=== PATIENT | female | born 1945 | race Caucasian/White ===

== ENCOUNTER 2020-10-10 20:53 | Inpatient (IN) | payer MEDICARE, BC ==
[2020-10-10] MEDS ORDERED: Zofran 4 MG/2 ML VIAL IV ONE (21:50)
[2020-10-10] MEDS ORDERED: MORPHINE SULFATE 2 MG INJ IV ONE (21:50)
[2020-10-10 21:58] LABS: Absolute Neutrophil Ct (ANC) 16.89 (1.4-6.9); BASOPHIL % 0.2 % (0.0-0.4); Basophil (Absolute #) 0.03 (0-0.4); Eosinophil % 0.1 % (0.00-5.0); Eosinophil (Absolute #) 0.02 (0-0.5); Hematocrit 41.3 % (35-47); Hemoglobin 13.8 gm/dl (12.0-16.0); Lymphocytes % 6.3 % (24.0-44.0); Mean Cell Volume 93.9 fl (78-100); Mean Corpuscular Hemoglobin 31.4 pg (26-32); Mean Corpuscular Hgb Concent. 33.4 g/dl (32-36); Mean Platelet Volume 10.5 fl (7.5-11.0); Monocyte (Absolute #) 0.98 (0.0-1.3); Monocytes % 5.1 % (0.0-12.0); Neutrophil % 88.3 % (36.0-66.0); Platelet Count 359 K/mm3 (150-450); Red Cell Distribution Width 12.3 % (11.5-14.0); White Blood Count 19.1 K/mm3 (4.0-10.5)
[2020-10-10] MEDS ORDERED: Sodium Chloride 0.9% 1000 ML 1,000 ML IV SCH (22:00)
--- NOTE | 2020-10-10 22:07 | ERPHSYRPT ---
- History of Present Illness Time Seen by Provider: 10/10/20 21:10 Historian: patient Exam Limitations: no limitations Patient Subjective Stated Complaint: pt states she has had sever abd starting today. states pain started in upper abd and is now in rt lower abd. rates as 10/10 and describes as burning Triage Nursing Assessment: pt alert and oriented answers questions approp. pt ambulatory with steady gait noted. skin warm and dry. respirations nonlabored with lungs cta. abd soft, bowel sounds noted x4 quads. Physician History: Patient is a 74-year-old female presents to our emergency department with complaints of abdominal pain that started this afternoon. Pain initially presented at the right upper quadrant patient states the pain is now in the right lower quadrant. Pain described as an ache that is localized. No radiation. Pain rated 10 out of 10. No associated trauma. No fever. No nausea vomiting or diarrhea. No diaphoresis. Symptoms are moderate in intensity. No specific worsening improving factors. Denies vaginal discharge. No vaginal bleeding. No pelvic cramping. Patient voices no other complaints or concerns at this time. Timing/Duration: today Activities at Onset: none Quality: aching Abdominal Pain Onset Location: RLQ Pain Radiation: no radiation Severity of Pain-Max: moderate Severity of Pain-Current: mild Modifying Factors: Improves With: palpation Associated Symptoms: denies symptoms Previous symptoms: no prior history Allergies/Adverse Reactions: No Known Drug Allergies Allergy (Verified 10/10/20 21:20) Home Medications: No Reportable Medications [No Reported Medications] 10/10/20 [History] Hx Tetanus, Diphtheria Vaccination/Date Given: No Hx Influenza Vaccination/Date Given: Yes Hx Pneumococcal Vaccination/Date Given: No Immunizations Up to Date: No Travel Risk - International Travel Have you traveled outside of the country in past 3 weeks: No - Coronavirus Screening Are you exhibiting any of the following symptoms?: No Close contact with a COVID-19 positive Pt in past 14-21 Days: Yes - Vaccine Status Have you recieved a Covid-19 vaccination: Yes Glass Technologist: Moderna - Vaccination Dates Date of 2cond Vaccination (if applicable): apr 2020 - Review of Systems Constitutional: No Symptoms, No Fever, No Chills Eyes: No Symptoms Ears, Nose, & Throat: No Symptoms Respiratory: No Symptoms, No Cough, No Dyspnea Cardiac: No Symptoms, No Chest Pain, No Edema, No Syncope Abdominal/Gastrointestinal: No Symptoms, No Abdominal Pain, No Nausea, No Vomiti ng, No Diarrhea Genitourinary Symptoms: No Symptoms, No Dysuria Musculoskeletal: No Symptoms, No Back Pain, No Neck Pain Skin: No Symptoms, No Rash Neurological: No Symptoms, No Dizziness, No Focal Weakness, No Sensory Changes Psychological: No Symptoms Endocrine: No Symptoms Hematologic/Lymphatic: No Symptoms Immunological/Allergic: No Symptoms All Other Systems: Reviewed and Negative - Past Medical History Pertinent Past Medical History: Yes Other Medical History: prolapsed bladder - Past Surgical History Past Surgical History: Yes Female Surgical History: Hysterectomy Other Surgical History: removal of cyst from ovary - Social History Smoking Status: Never smoker Exposure to second hand smoke: No Drug Use: none Patient Lives Alone: Yes - Nursing Vital Signs Nursing Vital Signs: Initial Vital Signs Temperature 97.5 F 10/10/20 21:03 Pulse Rate 108 H 10/10/20 21:03 Respiratory Rate 16 10/10/20 21:03 Blood Pressure 179/80 10/10/20 21:03 O2 Sat by Pulse Oximetry 97 10/10/20 21:03 Pain Scale Pain Intensity 10 - Physical Exam General Appearance: no apparent distress, alert Eye Exam: PERRL/EOMI, eyes nml inspection Ears, Nose, Throat Exam: normal ENT inspection, pharynx normal, moist mucous membranes Neck Exam: normal inspection, non-tender, supple, full range of motion Respiratory Exam: normal breath sounds, lungs clear, No respiratory distress Cardiovascular Exam: regular rate/rhythm, normal heart sounds Gastrointestinal/Abdomen Exam: soft, tenderness, other (Patient palpation of right lower quadrant McBurney's point. No rebound no peritoneal signs. Negativ e Jacobsen sign. No signs of trauma.), No mass Back Exam: normal inspection, normal range of motion, No CVA tenderness, No vertebral tenderness Extremity Exam: normal inspection, normal range of motion, pelvis stable Neurologic Exam: alert, oriented x 3, cooperative, normal mood/affect, nml cerebellar function, sensation nml, No motor deficits Skin Exam: normal color, warm, dry Lymphatic Exam: No adenopathy SpO2 Interpretation: normal SpO2: 97 O2 Delivery: Room Air - Course Nursing assessment & vital signs reviewed: Yes - CT Exams Abdomen/Pelvis CT Interpretation: Tele-radiologist Report (2 cm right ovarian cyst. Dilated 11 mm diameter appendix with free fluid adjacent to the truncated tip of the appendix suggesting possible perforation of the appendiceal tip with loculated fluid between the appendiceal tip and adjacent loop of small bowel.) Ordered Tests: Active Orders 24 hr Category Date Time Status IV Insertion STAT Care 10/10/20 21:50 Active NPO Diet 10/10/20 23:46 Active ABDOMEN AND PELVIS W CONTRAST [CT] Stat Exams 10/10/20 21:51 Taken CBC W DIFF Stat Lab 10/10/20 21:54 Completed CMP Stat Lab 10/10/20 21:54 Completed LIPASE Stat Lab 10/10/20 21:54 Completed TROPONIN Q3H Lab 10/10/20 21:54 Completed TROPONIN Q3H Lab 10/11/20 01:00 Ordered TROPONIN Q3H Lab 10/11/20 04:00 Ordered TROPONIN Q3H Lab 10/11/20 07:00 Ordered TROPONIN Q3H Lab 10/11/20 10:00 Ordered UA W/RFX UR CULTURE Stat Lab 10/10/20 22:33 Completed Transfer Order Routine Transfer 10/11/20 Ordered Medication Summary Generic Name Dose Route Start Last Admin Trade Name Freq PRN Reason Stop Dose Admin Sodium Chloride 1,000 mls @ 100 mls/hr 10/10/20 22:00 10/10/20 22:15 Sodium Chloride 0.9% 1000 Ml IV 11/09/20 21:59 100 mls/hr .Q10H CRISTOFER Administration Discontinued Medications Generic Name Dose Route Start Last Admin Trade Name Freq PRN Reason Stop Dose Admin Levofloxacin/Dextrose 500 mg in 100 mls @ 100 mls/hr 10/10/20 23:33 10/10/20 23:39 Levofloxacin 500mg/100ml D5w IV 10/11/20 00:32 100 ml/hr STAT STA 100 mls/hr Administration Metronidazole 500 mg in 100 mls @ 200 mls/hr 10/10/20 23:33 10/10/20 23:39 Flagyl 500 Mg Ivpb IV 10/11/20 00:02 200 ml/hr STAT STA 200 mls/hr Administration Metronidazole Confirm 10/10/20 23:36 Flagyl 500 Mg Ivpb Administered 10/10/20 23:37 Dose 500 mg in 100 mls @ ud IV .STK-MED ONE Levofloxacin/Dextrose Confirm 10/10/20 23:36 Levofloxacin 500mg/100ml D5w Administered 10/10/20 23:37 Dose 500 mg in 100 mls @ ud IV .STK-MED ONE Morphine Sulfate 2 mg 10/10/20 21:50 10/10/20 22:15 Morphine Sulfate 2 Mg Inj IV 10/10/20 21:51 2 mg STAT ONE Administration Morphine Sulfate Confirm 10/10/20 22:09 Morphine Sulfate 2 Mg Inj Administered 10/10/20 22:10 Dose 2 mg .ROUTE .STK-MED ONE Morphine Sulfate 4 mg 10/10/20 23:44 10/10/20 23:51 Morphine Sulfate 4 Mg Inj IV 10/10/20 23:45 4 mg STAT ONE Administration Morphine Sulfate Confirm 10/10/20 23:44 Morphine Sulfate 2 Mg Inj Administered 10/10/20 23:45 Dose 2 mg .ROUTE .STK-MED ONE Morphine Sulfate Confirm 10/10/20 23:49 Morphine Sulfate 2 Mg Inj Administered 10/10/20 23:50 Dose 2 mg .ROUTE .STK-MED ONE Ondansetron HCl 4 mg 10/10/20 21:50 10/10/20 22:14 Zofran 4 Mg/2 Ml Vial IV 10/10/20 21:51 4 mg STAT ONE Administration Ondansetron HCl Confirm 10/10/20 22:09 Zofran 4 Mg/2 Ml Vial Administered 10/10/20 22:10 Dose 4 mg .ROUTE .STK-MED ONE Ondansetron HCl Confirm 10/10/20 23:44 Zofran 4 Mg/2 Ml Vial Administered 10/10/20 23:45 Dose 4 mg .ROUTE .STK-MED ONE Lab/Rad Data: Laboratory Result Diagrams 10/10/20 21:54 10/10/20 21:54 Laboratory Results 10/10/20 10/10/20 10/10/20 Range/Units Unknown 22:33 21:54 WBC (4.0-10.5) K/mm3 RBC (4.1-5.4) M/mm3 Hgb (12.0-16.0) gm/dl Hct (35-47) % MCV (78-100) fl MCH (26-32) pg MCHC (32-36) g/dl RDW (11.5-14.0) % Plt Count (150-450) K/mm3 MPV (7.5-11.0) fl Gran % (36.0-66.0) % Eos # (Auto) (0-0.5) Absolute Lymphs (auto) (1.0-4.6) Absolute Monos (auto) (0.0-1.3) Lymphocytes % (24.0-44.0) % Monocytes % (0.0-12.0) % Eosinophils % (0.00-5.0) % Basophils % (0.0-0.4) % Absolute Granulocytes (1.4-6.9) Basophils # (0-0.4) Sodium (137-145) mmol/L Potassium (3.5-5.1) mmol/L Chloride (98-107) mmol/L Carbon Dioxide (22-30) mmol/L Anion Gap (5-15) MEQ/L BUN (7-17) mg/dL Creatinine (0.52-1.04) mg/dL Estimated GFR ML/MIN Glucose (74-106) mg/dL Calcium (8.4-10.2) mg/dL Total Bilirubin (0.2-1.3) mg/dL AST (14-36) U/L ALT (0-35) U/L Alkaline Phosphatase (38-126) U/L Troponin I < 0.012 (0.000-0.034) ng/mL Serum Total Protein (6.3-8.2) g/dL Albumin (3.5-5.0) g/dL Lipase (23-300) U/L Urine Color YELLOW (YELLOW) Urine Appearance CLEAR (CLEAR) Urine pH 7.0 (5-6) Ur Specific [place] 1.012 (1.005-1.025) Urine Protein NEGATIVE (Negative) Urine Ketones SMALL (NEGATIVE) Urine Blood NEGATIVE (0-5) Gregorio/ul Urine Nitrite NEGATIVE (NEGATIVE) Urine Bilirubin NEGATIVE (NEGATIVE) Urine Urobilinogen NEGATIVE (0-1) mg/dL Ur Leukocyte Esterase NEGATIVE (NEGATIVE) Urine WBC (Auto) 0-2 (0-5) /HPF Urine RBC (Auto) 0-2 (0-2) /HPF U Hyaline Cast (Auto) 0-2 (0-2) /LPF U Epithel Cells (Auto) RARE (FEW) /HPF Urine Bacteria (Auto) NONE SEEN (NEGATIVE) /HPF Urine Mucus (Auto) SLIGHT (NEGATIVE) /HPF Urine Culture Reflexed NO (NO) Urine Glucose NEGATIVE (NEGATIVE) mg/dL SARS-CoV-2 (PCR) NEGATIVE (NEGATIVE) 10/10/20 10/10/20 Range/Units 21:54 21:54 WBC 19.1 H (4.0-10.5) K/mm3 RBC 4.40 (4.1-5.4) M/mm3 Hgb 13.8 (12.0-16.0) gm/dl Hct 41.3 (35-47) % MCV 93.9 (78-100) fl MCH 31.4 (26-32) pg MCHC 33.4 (32-36) g/dl RDW 12.3 (11.5-14.0) % Plt Count 359 (150-450) K/mm3 MPV 10.5 (7.5-11.0) fl Gran % 88.3 H (36.0-66.0) % Eos # (Auto) 0.02 (0-0.5) Absolute Lymphs (auto) 1.20 (1.0-4.6) Absolute Monos (auto) 0.98 (0.0-1.3) Lymphocytes % 6.3 L (24.0-44.0) % Monocytes % 5.1 (0.0-12.0) % Eosinophils % 0.1 (0.00-5.0) % Basophils % 0.2 (0.0-0.4) % Absolute Granulocytes 16.89 H (1.4-6.9) Basophils # 0.03 (0-0.4) Sodium 131 L (137-145) mmol/L Potassium 3.5 (3.5-5.1) mmol/L Chloride 98 (98-107) mmol/L Carbon Dioxide 22 (22-30) mmol/L Anion Gap 14.4 (5-15) MEQ/L BUN 11 (7-17) mg/dL Creatinine 0.56 (0.52-1.04) mg/dL Estimated GFR > 60.0 ML/MIN Glucose 136 H (74-106) mg/dL Calcium 9.3 (8.4-10.2) mg/dL Total Bilirubin 0.60 (0.2-1.3) mg/dL AST 31 (14-36) U/L ALT 18 (0-35) U/L Alkaline Phosphatase 68 (38-126) U/L Troponin I (0.000-0.034) ng/mL Serum Total Protein 6.9 (6.3-8.2) g/dL Albumin 4.1 (3.5-5.0) g/dL Lipase 92 (23-300) U/L Urine Color (YELLOW) Urine Appearance (CLEAR) Urine pH (5-6) Ur Specific [place] (1.005-1.025) Urine Protein (Negative) Urine Ketones (NEGATIVE) Urine Blood (0-5) Gregorio/ul Urine Nitrite (NEGATIVE) Urine Bilirubin (NEGATIVE) Urine Urobilinogen (0-1) mg/dL Ur Leukocyte Esterase (NEGATIVE) Urine WBC (Auto) (0-5) /HPF Urine RBC (Auto) (0-2) /HPF U Hyaline Cast (Auto) (0-2) /LPF U Epithel Cells (Auto) (FEW) /HPF Urine Bacteria (Auto) (NEGATIVE) /HPF Urine Mucus (Auto) (NEGATIVE) /HPF Urine Culture Reflexed (NO) Urine Glucose (NEGATIVE) mg/dL SARS-CoV-2 (PCR) (NEGATIVE) - Progress Progress: improved Progress Note: Case discussed with Dr. Albarado at 11:[address] Albarado advised that there appears to be a perforated appendix. He is currently speaking to the data warehouse manager regarding OR availability. Patient was informed. IV antibiotics ordered. Additional pain medication ordered as well. 10/10/20 23:43 10/10/20 23:45 On accounts supervisor called our ED informed us that surgery will be scheduled for 6 AM tomorrow morning. Patient will be maintained n.p.o. 10/11/20 00:48 Discussed with accepts admission to observation. Plan of care d iscussed with patient. She agrees to admission [facility] for further evaluation and treatment. Discussed with : Derick (Dr. Ching will take patient to the OR at 6 AM this morning.) Will see patient in: hospital (observation) Counseled pt/family regarding: lab results, diagnosis, rad results - Departure Departure Disposition: Observation Clinical Impression: Leukocytosis, Hepatic cyst, Renal cyst, Perforated appendix, Ovarian cyst, Spondylolisthesis, Central spinal stenosis, Levoscoliosis Condition: Stable Critical Care Time: No Referrals: LAUREN OLGUIN MD [Primary Care Provider] -
[2020-10-10] MEDS ORDERED: MORPHINE SULFATE 2 MG INJ ONE ×3 (22:09→23:49)
[2020-10-10] MEDS ORDERED: Zofran 4 MG/2 ML VIAL ONE ×2 (22:09→23:44)
[2020-10-10] MEDS ORDERED: Sodium Chloride 0.9% 1000 ML 1,000 ML ONE (22:09)
[2020-10-10 22:10] LABS: ALBUMIN 4.1 g/dL (3.5-5.0); ALKALINE PHOSPHATASE 68 U/L (38-126); ANION GAP 14.4 MEQ/L (5-15); BLOOD UREA NITROGEN 11 mg/dL (7-17); CHLORIDE 98 mmol/L (98-107); Calcium 9.3 mg/dL (8.4-10.2); Carbon Dioxide 22 mmol/L (22-30); Creatinine 1 0.56 mg/dL (0.52-1.04); EST GLOMERULAR FILTRATION RATE > 60.0 ML/MIN; Glucose 136 mg/dL (74-106); LIPASE 92 U/L (23-300); Potassium 3.5 mmol/L (3.5-5.1); SGOT/AST 31 U/L (14-36); SGPT/ALT 18 U/L (0-35); SODIUM 131 mmol/L (137-145); Total Protein 6.9 g/dL (6.3-8.2)
[2020-10-10 23:07] LABS: Appearance CLEAR (CLEAR); Bilirubin NEGATIVE (NEGATIVE); Blood NEGATIVE Ery/ul (0-5); Epithelial Cells RARE /HPF (FEW); Glucose NEGATIVE (NEGATIVE); Hyaline Casts 0-2 /LPF (0-2); Ketones SMALL (NEGATIVE); Leukocyte Esterase NEGATIVE (NEGATIVE); Mucus SLIGHT /HPF (NEGATIVE); Nitrite NEGATIVE (NEGATIVE); Protein,Urine Dip NEGATIVE (Negative); RBC 0-2 /HPF (0-2); Specific Gravity 1.012 (1.005-1.025); Urobilinogen NEGATIVE mg/dL (0-1); WBC 0-2 /HPF (0-5)
[2020-10-10 23:08] LABS: Bacteria NONE SEEN /HPF (NEGATIVE)
[2020-10-10] MEDS ORDERED: FLAGYL 500 MG IVPB 500 MG/100 ML BAG IV STA (23:33)
[2020-10-10] MEDS ORDERED: Levofloxacin 500MG/100ML D5W 500 MG/100 ML BAG IV STA (23:33)
[2020-10-10] MEDS ORDERED: Levofloxacin 500MG/100ML D5W 500 MG/100 ML BAG IV ONE (23:36)
[2020-10-10] MEDS ORDERED: FLAGYL 500 MG IVPB 500 MG/100 ML BAG IV ONE (23:36)
[2020-10-10] MEDS ORDERED: MORPHINE SULFATE 4 MG INJ IV ONE (23:44)
[2020-10-11] MEDS ORDERED: Sodium Chloride 0.9% 1000 ML 1,000 ML IV SCH (01:28)
[2020-10-11] MEDS ORDERED: MORPHINE SULFATE 4 MG INJ IV PRN ×3 (01:28→09:26)
[2020-10-11] MEDS ORDERED: Lactated Ringers 1,000 ML IV ONE ×2 (01:55→07:28)
[2020-10-11] MEDS ORDERED: MEFOXIN 2 GM PREMIX** 2 GM/50 ML ML IV ONE (01:55)
[2020-10-11 04:53] LABS: Absolute Neutrophil Ct (ANC) 22.57 (1.4-6.9); Basophil (Absolute #) 0.01 (0-0.4); Eosinophil (Absolute #) 0 (0-0.5); Hematocrit 37.3 % (35-47); Hemoglobin 12.2 gm/dl (12.0-16.0); Lymphocytes % 2.1 % (24.0-44.0); Mean Cell Volume 95.6 fl (78-100); Mean Corpuscular Hemoglobin 31.3 pg (26-32); Mean Corpuscular Hgb Concent. 32.7 g/dl (32-36); Mean Platelet Volume 10.1 fl (7.5-11.0); Monocyte (Absolute #) 0.85 (0.0-1.3); Monocytes % 3.6 % (0.0-12.0); Neutrophil % 94.3 % (36.0-66.0); Platelet Count 280 K/mm3 (150-450); Red Cell Distribution Width 12.3 % (11.5-14.0); White Blood Count 23.9 K/mm3 (4.0-10.5)
[2020-10-11] MEDS ORDERED: Lactated Ringers 1,000 ML IV SCH (05:00)
[2020-10-11] MEDS ORDERED: MEFOXIN 2 GM PREMIX** 2 GM/50 ML ML IV SCH (05:00)
[2020-10-11 05:05] LABS: ALBUMIN 3.2 g/dL (3.5-5.0); ALKALINE PHOSPHATASE 53 U/L (38-126); ANION GAP 13.1 MEQ/L (5-15); BLOOD UREA NITROGEN 11 mg/dL (7-17); CHLORIDE 102 mmol/L (98-107); Calcium 8.7 mg/dL (8.4-10.2); Carbon Dioxide 23 mmol/L (22-30); Creatinine 1 0.59 mg/dL (0.52-1.04); EST GLOMERULAR FILTRATION RATE > 60.0 ML/MIN; Glucose 124 mg/dL (74-106); Potassium 3.9 mmol/L (3.5-5.1); SGOT/AST 22 U/L (14-36); SGPT/ALT 15 U/L (0-35); SODIUM 134 mmol/L (137-145); Total Protein 5.4 g/dL (6.3-8.2)
[2020-10-11] MEDS ORDERED: Sensorcaine 0.25% 10 ML ONE (05:23)
[2020-10-11 06:04] LABS: INR 1.09 (0.8-3.0); PROTIME 12.9 SECONDS (9.4-12.5)
[2020-10-11] MEDS ORDERED: Zemuron 100 MG/10 ML ONE (06:05)
[2020-10-11] MEDS ORDERED: DIPRIVAN 200 MG/20 ML IV ONE (06:05)
[2020-10-11] MEDS ORDERED: BRIDION 200MG/2ML IV ONE (06:05)
[2020-10-11] MEDS ORDERED: Quelicin Fliptop 200 MG/10 ML ONE (06:05)
[2020-10-11] MEDS ORDERED: ATROPINE SULFATE 1MG ONE (06:05)
[2020-10-11 06:07] LABS: PTT 24.6 SECONDS (25.1-36.5)
[2020-10-11] MEDS ORDERED: SUBLIMAZE 100 MCG/2 ML ONE (06:07)
[2020-10-11] MEDS ORDERED: Versed 2 MG/2 ML Injection ONE (06:07)
[2020-10-11] MEDS ORDERED: Ephedrine Sulfate 50 MG/ML ONE (06:45)
[2020-10-11 07:10] LABS: ABO TYPING O; Antibody Screen NEGATIVE (NEGATIVE); RH TYPING POSITIVE
[2020-10-11] MEDS ORDERED: TORAdol 30 mg Injection ONE (07:27)
[2020-10-11] MEDS ORDERED: Zofran 4 MG/2 ML VIAL ONE (07:28)
[2020-10-11 08:18] LABS: Slide Review 1 YES
--- NOTE | 2020-10-11 08:46 | CONS ---
CONSULT DATE: 10/11/2020 HISTORY: A 74 year-old female had some lower abdominal pain looked like more to the right lower quadrant that started yesterday. It became worse yesterday and she came in. She had CT work up in the middle of the night and noted to have appendicitis, question whether she had an abscess with a little bit of collection base of the appendix, dilated appendix. I was asked to see her surgically. PAST MEDICAL HISTORY: She had prolapsed bladder in the past. Considered healthy otherwise. PAST SURGICAL HISTORY: She had hysterectomy in the past apparently they did vaginally. MEDICATIONS: No medications on a regular basis. ALLERGIES: NKDA. FAMILY HISTORY: Negative in regards to this problem. SOCIAL HISTORY: Denies alcohol abuse. REVIEW OF SYSTEMS: Fourteen systems reviewed. No chest pain or palpitations. Pertinent for right lower quadrant pain. Other systems negative or noncontributory as above and per preadmission questionnaire. LAB DATA AND TESTS: White count 19 in the emergency room. Hemoglobin 13. Liver function tests were unremarkable. CT scan showed appendix with some fluid adjacent to it, question perforated appendix. PHYSICAL EXAMINATION: Temperature 97.5F, blood pressure 179/80 in the emergency room when she was there. GENERAL: No acute distress. HEENT: Sclera nonicteric. NECK: No JVD. CHEST: Equal excursion, nonlabored breathing. CVS: Regular rate and rhythm. ABDOMEN: Soft, some tenderness in the right lower quadrant. EXTREMITIES: No cyanosis. NEURO: Alert, moving extremities grossly symmetrically. PSYCH: Appropriate mood and affect. IMPRESSION: Acute lower abdominal pain. CT suspicious for acute appendicitis possible perforation. I feel the patient would benefit from diagnostic laparoscopy, laparoscopic appendectomy with possible open. Risks and benefits explained in detail including but not limited to bleeding or infection, risk of trocar injury or hernia, risk of bowel, bladder or blood vessel or ureter issues or injury possibly requiring other procedure, risk of subsequent intra-abdominal abscess or fistula formation possibly requiring percutaneous or open drainage even at a later date, perioperative risk of nausea, vomiting, ileus or obstruction, risk of ongoing infection possibly requiring other procedures, possibility of finding a normal appendix likely remove incidentally and look for other etiology that might need taken care of surgically, general risk of anesthesia, deep vein thrombosis, pulmonary embolism, pneumonia but not limited to, consent obtained. Will proceed with diagnostic laparoscopy, laparoscopic appendectomy possible open when OR time available.
--- NOTE | 2020-10-11 08:53 | XRAY ---
Indication: Abdomen pain. Multiple contiguous axial images obtained through the abdomen and pelvis using 80 cc Isovue 370 contrast. Comparison: None Lung bases demonstrates mild dependent atelectasis without infiltrate or effusion. Heart not enlarged. Moderate size hiatal hernia with partial intrathoracic stomach. Noncontrasted stomach and bowel loops appear nonobstructed. Appendix is prominent up to 1.2 cm with minimal periappendiceal stranding favoring appendicitis. Tiny free fluid presumed reactive. No walled off fluid collection or free air. Incidental minimal sigmoid diverticulosis, 1.3 cm right lobe hepatic cyst, 2.1 cm right ovary cyst, and small bilateral renal cysts largest on the left measuring 1.3 cm. Uterus surgically absent. Remaining liver, gallbladder, pancreas, spleen, adrenal glands, kidneys, ureters, and bladder are unremarkable. Minimal aortic calcifications. No AAA or pathologic retroperitoneal lymphadenopathy. Osseous structures intact with mild osteopenia, minimal/mild multilevel degenerative spondylosis, 4 mm anterolisthesis of L4 on L5, and mild levorotoscoliosis centered at L3. Impression: 1. Abnormal appendix concerning for acute appendicitis with tiny reactive fluid. 2. Incidental hiatal hernia with partial intrathoracic stomach, sigmoid diverticulosis, hepatic/renal/right ovary cysts, and chronic bony findings. Comment: Preliminary interpretation made by [facility]. No critical discrepancy.
--- NOTE | 2020-10-11 08:59 | OP ---
SURGERY DATE/TIME: 10/11/2020 0633 PREOPERATIVE DIAGNOSIS: Acute appendicitis question of perforation. POSTOPERATIVE DIAGNOSIS: Acute appendicitis with question of microperforation, diffuse right abdomen peritonitis. PROCEDURE: Laparoscopic appendectomy. SURGEON: Dr. Neto Albarado. ANESTHESIA: General. ESTIMATED BLOOD LOSS: Minimal. INDICATIONS: As noted above. Risks and benefits explained in detail but not limited to, consent obtained. DESCRIPTION OF PROCEDURE AND FINDINGS: The patient was taken to the operating room. General anesthesia induced. Abdomen prepped and draped in usual sterile fashion. After official time out and no disagreement with planned procedure, a transverse incision made at supraumbilical area. Fascia grasped and pulled upwards. Veress needle inserted and tested with saline. Pneumoperitoneum accomplished insufflating from opening pressure of 0 to 15. A 5 mm bladeless port and camera inserted without difficulty followed by lower midline 5 mm port and a right mid abdomen 5 mm port. She had diffuse peritonitis on the right half of the abdomen, had acute appendicitis that did at least have a microperforation. It was carefully mobilized upwards. The appendix was stapled off at the base of the cecum with EndoGIA stapler and sequential reload fired across the mesoappendix and appeared to have adequate hemostasis. Appendix placed in a bag, pulled free and passed off out the port wound. The port was replaced. Copious amount of irrigation accomplished in the pelvis and right lower quadrant and right gutter irrigating as clear as possible. Given the extensive peritonitis and what seemed to be at least a microperforation/diffuse peritonitis it was felt would benefit from temporary ROBERT drain placement. It was placed in the right lower quadrant out through a 5 mm port site. Prior to doing so the small bowel was run to a couple of feet. There was no evidence of any Meckel's. A drain was placed and brought out through the inferior 5 mm midline port, secured with PDS suture and placed to bulb suction. The fascial defect site closed with puncture closure device with #1 Vicryl under direct vision with the camera. Pneumoperitoneum decompressed. The wound is irrigated out. Skin incision closed with 4-0 Vicryl. Steri-Strips and sterile dressing applied. 0.25% Marcaine local injected along the skin incision fascial defects. The patient tolerated the procedure well. There were no immediate complications. Findings were discussed with the family out in the waiting area.
[2020-10-11] MEDS: Calcium 500MG W/Vit D Tablet PO SCH (09:45)
[2020-10-11] MEDS: THERAGRAN MULTIVITAMIN PO SCH (09:45)
[2020-10-11] MEDS ORDERED: MEDICATION INTERVENTION MC SCH (09:45)
[2020-10-11] MEDS ORDERED: CALCIUM CARBONATE PO SCH (10:00)
[2020-10-11] MEDS ORDERED: [UNRECOGNIZED DRUG - OTHER] PO SCH (10:00)
[2020-10-11] MEDS ORDERED: VIT C PO SCH (10:00)
[2020-10-11] MEDS ORDERED: FOLIC ACID PO SCH (10:00)
[2020-10-11] MEDS ORDERED: MULTIVITAMIN PO SCH (10:00)
[2020-10-11] MEDS ORDERED: GLUT PO SCH (10:00)
[2020-10-11] MEDS ORDERED: IRON PO SCH (10:00)
[2020-10-11] MEDS ORDERED: MV MIN PO SCH (10:00)
[2020-10-11] MEDS ORDERED: LYSINE PO SCH (10:00)
[2020-10-11] MEDS ORDERED: VITAMIN D3 PO SCH (10:00)
[2020-10-11] MEDS: SODIUM CHLORIDE 0.9% IV SCH ×2 (11:28→17:03)
[2020-10-11] MEDS: ZOSYN IV SCH ×2 (11:28→17:03)
[2020-10-11] MEDS: NORCO 5/325 MG PO PRN ×3 (11:29→20:46)
[2020-10-11] MEDS: Zofran 4 MG/2 ML VIAL IV PRN (17:36)
[2020-10-11] MEDS ORDERED: Tums EX 750 MG PO PRN (18:44)
[2020-10-12] MEDS: ZOSYN IV SCH ×4 (00:05→20:53)
[2020-10-12] MEDS: SODIUM CHLORIDE 0.9% IV SCH ×4 (00:05→20:53)
[2020-10-12] MEDS: NORCO 5/325 MG PO PRN ×4 (00:53→09:07)
[2020-10-12] MEDS ORDERED: Tums EX 750 MG PO PRN (07:15)
[2020-10-12] MEDS: Calcium 500MG W/Vit D Tablet PO SCH (08:54)
[2020-10-12] MEDS: THERAGRAN MULTIVITAMIN PO SCH (08:55)
[2020-10-12] MEDS: Zofran 4 MG/2 ML VIAL IV PRN (09:01)
[2020-10-12 09:25] LABS: Absolute Neutrophil Ct (ANC) 11.85 (1.4-6.9); BASOPHIL % 0.1 % (0.0-0.4); Basophil (Absolute #) 0.02 (0-0.4); Eosinophil % 0.4 % (0.00-5.0); Eosinophil (Absolute #) 0.05 (0-0.5); Hematocrit 34.7 % (35-47); Hemoglobin 11.2 gm/dl (12.0-16.0); Lymphocyte (Absolute #) 1.03 (1.0-4.6); Lymphocytes % 7.6 % (24.0-44.0); Mean Cell Volume 97.5 fl (78-100); Mean Corpuscular Hemoglobin 31.5 pg (26-32); Mean Corpuscular Hgb Concent. 32.3 g/dl (32-36); Mean Platelet Volume 10.1 fl (7.5-11.0); Monocyte (Absolute #) 0.65 (0.0-1.3); Monocytes % 4.8 % (0.0-12.0); Neutrophil % 87.1 % (36.0-66.0); Platelet Count 262 K/mm3 (150-450); Red Blood Count 3.56 M/mm3 (4.1-5.4); Red Cell Distribution Width 12.8 % (11.5-14.0); White Blood Count 13.6 K/mm3 (4.0-10.5)
[2020-10-12 09:46] LABS: ALBUMIN 3.2 g/dL (3.5-5.0); ALKALINE PHOSPHATASE 51 U/L (38-126); BLOOD UREA NITROGEN 12 mg/dL (7-17); CHLORIDE 100 mmol/L (98-107); Calcium 8.3 mg/dL (8.4-10.2); Carbon Dioxide 23 mmol/L (22-30); Creatinine 1 0.64 mg/dL (0.52-1.04); EST GLOMERULAR FILTRATION RATE > 60.0 ML/MIN; Glucose 117 mg/dL (74-106); Potassium 3.6 mmol/L (3.5-5.1); SGOT/AST 40 U/L (14-36); SGPT/ALT 19 U/L (0-35); SODIUM 131 mmol/L (137-145); Total Protein 5.8 g/dL (6.3-8.2)
[2020-10-12] MEDS ORDERED: ZOFRAN ODT 4 MG PO PRN (14:22)
[2020-10-12] MEDS: TYLENOL 325 MG PO PRN ×2 (15:34→22:15)
--- NOTE | 2020-10-12 16:07 | PCM.HP ---
History of Present Illness - Chief Complaint Chief Complaint: abdominal pain for 1 day History of Present Illness: is a 74 year old female.presents to our emergency department with complaints of abdominal pain that started this afternoon. Pain initially presented at the right upper quadrant patient states the pain is now in the right lower quadrant. Pain described as an ache that is localized. No radiation. Pain rated 10 out of 10. No associated trauma. No fever. No nausea vomiting or diarrhea. No diaphoresis. Symptoms are moderate in intensity. No specific worsening improving factors. Denies vaginal discharge. No vaginal bleeding. No pelvic cramping. Patient voices no other complaints or concerns at this time. - Review of Systems Constitutional: No Fever, No Chills Eyes: No Symptoms Ears, Nose, & Throat: No Symptoms Respiratory: No Cough, No Short Of Breath Cardiac: No Chest Pain, No Edema, No Syncope Abdominal/Gastrointestinal: No Abdominal Pain, No Nausea, No Vomiting, No Diarrhea Genitourinary Symptoms: No Dysuria Musculoskeletal: No Back Pain, No Neck Pain Skin: No Rash Neurological: No Dizziness, No Focal Weakness, No Sensory Changes Psychological: No Symptoms Endocrine: No Symptoms Hematologic/Lymphatic: No Symptoms Immunological/Allergic: No Symptoms Medications & Allergies Home Medications: Home Medication List Calcium Carbonate/Vitamin D3 [Calcium 250-D Tablet] 1 tab PO DAILY 10/11/20 [History Confirmed 10/11/20] Multivitamin/Iron/Folic Acid [Centrum Adults Tablet] 1 tab PO DAILY 10/11/20 [History Confirmed 10/11/20] Mv-Min/Vit C/Glut/Lysine/Hb124 [Immune Support Chewable Tablet] 1 tab PO DAILY 10/11/20 [History Confirmed 10/11/20] Allergies/Adverse Reactions: Allergies Allergy/AdvReac Type Severity Reaction Status Date / Time No Known Drug Allergies Allergy Verified 10/11/20 01:35 - Past Medical History Past Medical History: Yes Neurological History: No Pertinent History ENT History: No Pertinent History Cardiac History: No Pertinent History Respiratory History: No Pertinent History Endocrine Medical History: No Pertinent History Musculoskelatal History: No Pertinent History GI Medical History: GERD Pyscho-Social History: No Pertinent History Reproductive Disorders: No Pertinent History Comment: prolapsed bladder - Female History Are you now?: No - Past Surgical History Past Surgical History: Yes Neuro Surgical History: No Pertinent History Cardiac History: No Pertinent History Respiratory Surgery: No Pertinent History GI Surgical History: No Pertinent History Genitourinary Surgical Hx: No Pertinent History Musculskeletal Surgical Hx: No Pertinent History Female Surgical History: Hysterectomy Other Surgical History: removal of cyst from ovary - Social History Smoking Status: Never smoker Exposure to second hand smoke: No Alcohol: None Drug Use: none - Physical Exam Vital Signs: Vital Signs - 24 hr Temp Pulse Resp BP Pulse Ox 10/12/20 11:45 97.6 F 75 16 93/49 91 L 10/12/20 07:22 97.4 F 75 16 100/52 90 L 10/12/20 04:00 97.2 F 67 16 96/54 94 L 10/11/20 23:57 97.7 F 71 17 100/55 94 L 10/11/20 23:00 97.7 F 71 17 100/55 94 L 10/11/20 19:53 97.4 F 73 16 100/54 94 L 10/11/20 16:09 97.9 F 77 16 103/53 93 L General Appearance: no apparent distress, alert Neurologic Exam: alert, oriented x 3, cooperative, normal mood/affect, nml cerebellar function, nml station & gait, sensation nml, No motor deficits Eye Exam: PERRL/EOMI, eyes nml inspection Ears, Nose, Throat Exam: normal ENT inspection, TMs normal, pharynx normal, moist mucous membranes Neck Exam: normal inspection, non-tender, supple, full range of motion Respiratory Exam: normal breath sounds, lungs clear, No respiratory distress Cardiovascular Exam: regular rate/rhythm, normal heart sounds, normal peripheral pulses Gastrointestinal/Abdomen Exam: tenderness (LLQ), No mass Back Exam: normal inspection, normal range of motion, No CVA tenderness, No vertebral tenderness Extremity Exam: normal inspection, normal range of motion, pelvis stable Skin Exam: normal color, warm, dry, No rash Lymphatic Exam: No adenopathy Results - Labs Lab/Micro Results: Lab Results-Last 24 Hours 10/12/20 10/12/20 Range/Units 09:13 09:13 WBC 13.6 H (4.0-10.5) K/mm3 RBC 3.56 L (4.1-5.4) M/mm3 Hgb 11.2 L (12.0-16.0) gm/dl Hct 34.7 L (35-47) % MCV 97.5 (78-100) fl MCH 31.5 (26-32) pg MCHC 32.3 (32-36) g/dl RDW 12.8 (11.5-14.0) % Plt Count 262 (150-450) K/mm3 MPV 10.1 (7.5-11.0) fl Gran % 87.1 H (36.0-66.0) % Eos # (Auto) 0.05 (0-0.5) Absolute Lymphs (auto) 1.03 (1.0-4.6) Absolute Monos (auto) 0.65 (0.0-1.3) Lymphocytes % 7.6 L (24.0-44.0) % Monocytes % 4.8 (0.0-12.0) % Eosinophils % 0.4 (0.00-5.0) % Basophils % 0.1 (0.0-0.4) % Absolute Granulocytes 11.85 H (1.4-6.9) Basophils # 0.02 (0-0.4) Sodium 131 L (137-145) mmol/L Potassium 3.6 (3.5-5.1) mmol/L Chloride 100 (98-107) mmol/L Carbon Dioxide 23 (22-30) mmol/L Anion Gap 12.0 (5-15) MEQ/L BUN 12 (7-17) mg/dL Creatinine 0.64 (0.52-1.04) mg/dL Estimated GFR > 60.0 ML/MIN Glucose 117 H (74-106) mg/dL Calcium 8.3 L (8.4-10.2) mg/dL Total Bilirubin 0.50 (0.2-1.3) mg/dL AST 40 H (14-36) U/L ALT 19 (0-35) U/L Alkaline Phosphatase 51 (38-126) U/L Serum Total Protein 5.8 L (6.3-8.2) g/dL Albumin 3.2 L (3.5-5.0) g/dL - Radiology Impressions Radiology Exams & Impressions: Radiology Procedures Category Date Time Status ABDOMEN AND PELVIS W CONTRAST [CT] Stat Exams 10/10/20 21:51 Completed Assessment/Plan (1) Perforated appendix Current Visit: Yes Status: Acute Assessment & Plan: Chief Complaint Diagnosis perforated appendix Allergies Allergy/AdvReac Type Severity Reaction Status Date / Time No Known Drug Allergies Allergy Verified 10/11/20 01:35 Vital Signs (Last 24 hours) Temp Pulse Resp BP Pulse Ox 10/12/20 11:45 97.6 F 75 16 93/49 91 L 10/12/20 07:22 97.4 F 75 16 100/52 90 L 10/12/20 04:00 97.2 F 67 16 96/54 94 L 10/11/20 23:57 97.7 F 71 17 100/55 94 L 10/11/20 23:00 97.7 F 71 17 100/55 94 L 10/11/20 19:53 97.4 F 73 16 100/54 94 L 10/11/20 16:09 97.9 F 77 16 103/53 93 L Home Medications Medication Instructions Recorded Confirmed Last Taken Type Calcium Carbonate/Vitamin D3 1 tab PO DAILY 10/11/20 10/11/20 10/10/20 08:00 History [Calcium 250-D Tablet] Multivitamin/Iron/Folic Acid 1 tab PO DAILY 10/11/20 10/11/20 10/10/20 08:00 History [Centrum Adults Tablet] Mv-Min/Vit C/Glut/Lysine/Hb124 1 tab PO DAILY 10/11/20 10/11/20 10/10/20 08:00 History [Immune Support Chewable Tablet] Current Medications Generic Name Dose Route Start Last Admin Trade Name Freq PRN Reason Stop Dose Admin Acetaminophen 650 mg 10/12/20 07:59 10/12/20 15:34 Tylenol 325 Mg PO 11/11/20 07:58 650 mg Q4H PRN PRN Administration PAIN, FEVER, HEADACHE Hydrocodone Bitart/Acetaminophen 1 tab 10/11/20 09:19 10/12/20 08:55 [place] 5/325 Mg PO 10/16/20 09:18 1 tab Q4H PRN PRN Administration pain Calcium Carbonate 1 tab 10/11/20 10:00 10/12/20 08:54 Calcium 500mg W/Vit D Tablet PO 11/10/20 09:59 Not Given DAILY CRISTOFER Calcium Carbonate/Glycine 750 mg 10/12/20 07:15 Tums Ex 750 Mg PO 11/10/20 18:43 TID PRN PRN BELCH[place] Piperacillin Sod/Tazobactam 100 mls @ 200 mls/hr 10/11/20 12:00 10/12/20 11:11 Sod 3.375 gm/ Sodium Chloride IV 10/14/20 11:59 200 mls/hr Q6HT CRISTOFER Administration Miscellaneous Information 1 each 10/11/20 09:45 Medication Intervention 11/10/20 09:44 .RN TO CHECK CRISTOFER Morphine Sulfate 3 mg 10/11/20 09:26 10/11/20 09:31 Morphine Sulfate 4 Mg Inj IV 10/16/20 09:25 3 mg Q1H PRN PRN Administration PAIN Multivitamins Therapeutic 1 tab 10/11/20 10:00 10/12/20 08:55 Theragran Multivitamin PO 11/10/20 09:59 Not Given DAILY CRISTOFER Ondansetron HCl 4 mg 10/11/20 09:19 10/12/20 09:01 Zofran 4 Mg/2 Ml Vial IV 11/10/20 09:18 4 mg Q6HPRN PRN Administration Nausea Ondansetron HCl 4 mg 10/12/20 14:22 Zofran Odt 4 Mg PO 11/11/20 14:21 Q4H PRN PRN NAUSEA/VOMITING Discontinued Medications Generic Name Dose Route Start Last Admin Trade Name Freq PRN Reason Stop Dose Admin Atropine Sulfate Confirm 10/11/20 06:05 Atropine Sulfate 1mg Administered 10/11/20 06:06 Dose 1 mg .ROUTE .STK-MED ONE Bupivacaine HCl Confirm 10/11/20 05:23 Sensorcaine 0.25% 10 Ml Administered 10/11/20 05:24 Dose 10 ml .ROUTE .STK-MED ONE Calcium Carbonate/Glycine 750 mg 10/11/20 18:44 10/11/20 18:47 Tums Ex 750 Mg PO 11/10/20 21:59 750 mg TID PRN Administration BELCHING Ephedrine Sulfate Confirm 10/11/20 06:45 Ephedrine Sulfate 50 Mg/Ml Administered 10/11/20 06:46 Dose 50 mg .ROUTE .STK-MED ONE Fentanyl Citrate Confirm 10/11/20 06:07 Sublimaze 100 Mcg/2 Ml Administered 10/11/20 06:08 Dose 100 mcg .ROUTE .STK-MED ONE Sodium Chloride 1,000 mls @ 100 mls/hr 10/10/20 22:00 10/10/20 22:15 Sodium Chloride 0.9% 1000 Ml IV 11/09/20 21:59 100 mls/hr .Q10H CRISTOFER Administration Levofloxacin/Dextrose 500 mg in 100 mls @ 100 mls/hr 10/10/20 23:33 10/11/20 01:10 Levofloxacin 500mg/100ml D5w IV 10/11/20 00:32 Infused STAT STA Infusion Metronidazole 500 mg in 100 mls @ 200 mls/hr 10/10/20 23:33 10/11/20 01:10 Flagyl 500 Mg Ivpb IV 10/11/20 00:02 Infused STAT STA Infusion Metronidazole Confirm 10/10/20 23:36 Flagyl 500 Mg Ivpb Administered 10/10/20 23:37 Dose 500 mg in 100 mls @ ud IV .STK-MED ONE Levofloxacin/Dextrose Confirm 10/10/20 23:36 Levofloxacin 500mg/100ml D5w Administered 10/10/20 23:37 Dose 500 mg in 100 mls @ ud IV .STK-MED ONE Sodium Chloride Confirm 10/10/20 22:09 Sodium Chloride 0.9% 1000 Ml Administered 10/10/20 22:10 Dose 1,000 mls @ ud .ROUTE .STK-MED ONE Sodium Chloride 1,000 mls @ 100 mls/hr 10/11/20 01:28 10/11/20 03:41 Sodium Chloride 0.9% 1000 Ml IV 11/10/20 01:27 Not Given .Q10H CRISTOFER Lactated Ringer's 1,000 mls @ 50 mls/hr 10/11/20 05:00 10/11/20 06:24 Lactated Ringers IV 11/10/20 04:59 50 mls/hr .Q20H CRISTOFER Administration Cefoxitin Sodium 2 gm in 50 mls @ 100 mls/hr 10/11/20 05:00 Mefoxin 2 Gm Premix IV 10/11/20 05:29 ONCALLTOOR CRISTOFER Lactated Ringer's Confirm 10/11/20 01:55 Lactated Ringers Administered 10/11/20 01:56 Dose 1,000 mls @ ud IV .STK-MED ONE Cefoxitin Sodium Confirm 10/11/20 01:55 Mefoxin 2 Gm Premix Administered 10/11/20 01:56 Dose 2 gm in 50 mls @ ud IV .STK-MED ONE Lactated Ringer's Confirm 10/11/20 07:28 Lactated Ringers Administered 10/11/20 07:29 Dose 1,000 mls @ ud IV .STK-MED ONE Ketorolac Tromethamine Confirm 10/11/20 07:27 Toradol 30 Mg Injection Administered 10/11/20 07:28 Dose 30 mg .ROUTE .STK-MED ONE Midazolam HCl Confirm 10/11/20 06:07 Versed 2 Mg/2 Ml Injection Administered 10/11/20 06:08 Dose 2 mg .ROUTE .STK-MED ONE Morphine Sulfate 2 mg 10/10/20 21:50 10/10/20 22:15 Morphine Sulfate 2 Mg Inj IV 10/10/20 21:51 2 mg STAT ONE Administration Morphine Sulfate Confirm 10/10/20 22:09 Morphine Sulfate 2 Mg Inj Administered 10/10/20 22:10 Dose 2 mg .ROUTE .STK-MED ONE Morphine Sulfate 4 mg 10/10/20 23:44 10/10/20 23:51 Morphine Sulfate 4 Mg Inj IV 10/10/20 23:45 4 mg STAT ONE Administration Morphine Sulfate Confirm 10/10/20 23:44 Morphine Sulfate 2 Mg Inj Administered 10/10/20 23:45 Dose 2 mg .ROUTE .STK-MED ONE Morphine Sulfate Confirm 10/10/20 23:49 Morphine Sulfate 2 Mg Inj Administered 10/10/20 23:50 Dose 2 mg .ROUTE .STK-MED ONE Morphine Sulfate 4 mg 10/11/20 01:28 10/11/20 03:41 Morphine Sulfate 4 Mg Inj IV 10/16/20 01:27 4 mg Q4H PRN PRN Administration PAIN Morphine Sulfate 3 mg 10/11/20 09:20 Morphine Sulfate 4 Mg Inj IV 10/16/20 09:19 Q1H PRN PAIN Ondansetron HCl 4 mg 10/10/20 21:50 10/10/20 22:14 Zofran 4 Mg/2 Ml Vial IV 10/10/20 21:51 4 mg STAT ONE Administration Ondansetron HCl Confirm 10/10/20 22:09 Zofran 4 Mg/2 Ml Vial Administered 10/10/20 22:10 Dose 4 mg .ROUTE .STK-MED ONE Ondansetron HCl Confirm 10/10/20 23:44 Zofran 4 Mg/2 Ml Vial Administered 10/10/20 23:45 Dose 4 mg .ROUTE .STK-MED ONE Ondansetron HCl Confirm 10/11/20 07:28 Zofran 4 Mg/2 Ml Vial Administered 10/11/20 07:29 Dose 4 mg .ROUTE .STK-MED ONE Propofol Confirm 10/11/20 06:05 Diprivan 200 Mg/20 Ml Administered 10/11/20 06:06 Dose 200 mg IV .STK-MED ONE Rocuronium [place] Confirm 10/11/20 06:05 Zemuron 100 Mg/10 Ml Administered 10/11/20 06:06 Dose 30 mg .ROUTE .STK-MED ONE Succinylcholine Chloride Confirm 10/11/20 06:05 Quelicin Fliptop 200 Mg/10 Ml Administered 10/11/20 06:06 Dose 100 mg .ROUTE .STK-MED ONE Sugammadex Sodium Confirm 10/11/20 06:05 [place] 200mg/2ml Administered 10/11/20 06:06 Dose 200 mg IV .STK-MED ONE Intake & Output (Last 24 hours) 10/10/20 10/11/20 10/12/20 10/13/20 11:59 11:59 11:59 11:59 Intake Total 244 1933 Output Total 1410 500 Balance 244 523 -500 Weight 55.1 kg Laboratory Results (Last 24 hours) 10/12/20 10/12/20 09:13 09:13 WBC 13.6 H RBC 3.56 L Hgb 11.2 L Hct 34.7 L MCV 97.5 MCH 31.5 MCHC 32.3 RDW 12.8 Plt Count 262 MPV 10.1 Gran % 87.1 H Eos # (Auto) 0.05 Absolute Lymphs (auto) 1.03 Absolute Monos (auto) 0.65 Lymphocytes % 7.6 L Monocytes % 4.8 Eosinophils % 0.4 Basophils % 0.1 Absolute Granulocytes 11.85 H Basophils # 0.02 Sodium 131 L Potassium 3.6 Chloride 100 Carbon Dioxide 23 Anion Gap 12.0 BUN 12 Creatinine 0.64 Estimated GFR > 60.0 Glucose 117 H Calcium 8.3 L Total Bilirubin 0.50 AST 40 H ALT 19 Alkaline Phosphatase 51 Serum Total Protein 5.8 L Albumin 3.2 L Orders (Last 24 hours) Category Date Time Status CBC W DIFF Routine Lab 10/12/20 09:13 Completed CMP Routine Lab 10/12/20 09:13 Completed Acetaminophen 325 mg [Tylenol 325 mg] Med 10/12/20 07:59 Active 650 mg PO Q4H PRN PRN Calcium Carbonate 750 mg [Tums EX 750 MG] Med 10/11/20 18:44 Discontinued 750 mg PO TID PRN Calcium Carbonate 750 mg [Tums EX 750 MG] Med 10/12/20 07:15 Active 750 mg PO TID PRN PRN Ondansetron ODT 4 MG [Zofran Odt 4 mg] Med 10/12/20 14:22 Active 4 mg PO Q4H PRN PRN Patient Care Notes (Last 24 hours) 10/12/20 14:44 Nursing Note by Aisha Darling [id number] DR[address] Lai called nurses station for Pt status. Informed Pt unable to eat breakfast d/t nausea, rating pain 5/10, WBC 13.6, ambulated 60 feet but became nauseous and dizzy, requested to return to room. Pt stated she felt better once she returned to bed. Orders Received: Consult surgeon for DC order. Initialized on 10/12/20 14:44 - END OF NOTE 10/12/20 14:18 Nursing Note by Aisha Darling [id number] Notified , Pt remains in hospital, nausea and dizziness continues, IV infiltrated and Pt refused IV placement. Orders Received: Zofran PO Initialized on 10/12/20 14:18 - END OF NOTE 10/12/20 07:14 Nursing Note by Jaz Trinh report and pt care given over to day shift Initialized on 10/12/20 07:14 - END OF NOTE 10/11/20 19:15 (created 10/11/20 19:43) Nursing Note by Jaz Trinh REPORT RECEIVED AND PT CARE TAKEN OVER BY THIS NURSE. Initialized on 10/11/20 19:43 - END OF NOTE Code(s): K35.32 - ACUTE APPENDICITIS WITH PERF AND LOC PERITONITIS, W/O ABSCS
[2020-10-12] MEDS: Augmentin 875-125 Tablet PO SCH (22:16)
[2020-10-13] MEDS: TYLENOL 325 MG PO PRN ×2 (02:16→06:16)
[2020-10-13 08:16] VITALS: BP 129/63; PULSE 85; O2SAT 93
[2020-10-13] MEDS: THERAGRAN MULTIVITAMIN PO SCH (09:18)
[2020-10-13] MEDS: Calcium 500MG W/Vit D Tablet PO SCH (09:18)
[2020-10-13] MEDS: Augmentin 875-125 Tablet PO SCH (09:18)
--- NOTE | 2020-10-13 15:47 | PCM.DS ---
Discharge Summary Date of Admission: 10/11/20 08:00 Admitting Physician: LAUREN OLGUIN Consults: Consults on Case 10/11/20 01:28 Consult Surgery ROUTINE Primary Care Provider: LAUREN OLGUIN Allergies Allergies No Known Drug Allergies Allergy (Verified 10/11/20 01:35) Hospital Summary - Hospital Course Hospital Course: Chief Complaint Diagnosis Acute appendicitis with question of microperforation Allergies Allergy/AdvReac Type Severity Reaction Status Date / Time No Known Drug Allergies Allergy Verified 10/11/20 01:35 Vital Signs (Last 24 hours) Temp Pulse Resp BP Pulse Ox 10/13/20 08:00 98.0 F 85 20 129/63 93 L 10/13/20 04:00 97.4 F 78 16 111/56 94 L 10/13/20 00:00 97.9 F 82 16 116/55 94 L 10/12/20 20:00 98.1 F 93 H 18 143/66 94 L 10/12/20 16:00 98.1 F 78 16 121/57 90 L Home Medications Medication Instructions Recorded Confirmed Last Taken Type Calcium Carbonate/Vitamin D3 1 tab PO DAILY 10/11/20 10/11/20 10/10/20 08:00 History [Calcium 250-D Tablet] Multivitamin/Iron/Folic Acid 1 tab PO DAILY 10/11/20 10/11/20 10/10/20 08:00 History [Centrum Adults Tablet] Mv-Min/Vit C/Glut/Lysine/Hb124 1 tab PO DAILY 10/11/20 10/11/20 10/10/20 08:00 History [Immune Support Chewable Tablet] Amox Tr/Potass Clav. 875 mg 875 mg PO BID #12 tablet 10/13/20 Unknown Rx [Augmentin 875-125 Tablet] Current Medications Discontinued Medications Generic Name Dose Route Start Last Admin Trade Name Freq PRN Reason Stop Dose Admin Acetaminophen 650 mg 10/12/20 07:59 10/13/20 06:16 Tylenol 325 Mg PO 11/11/20 07:58 650 mg Q4H PRN PRN Administration PAIN, FEVER, HEADACHE Hydrocodone Bitart/Acetaminophen 1 tab 10/11/20 09:19 10/12/20 08:55 [place] 5/325 Mg PO 10/16/20 09:18 1 tab Q4H PRN PRN Administration pain Amoxicillin/Clavulanate Potassium 875 mg 10/12/20 22:00 10/13/20 09:18 Augmentin 875-125 Tablet PO 11/11/20 21:59 875 mg Q12H CRISTOFER Administration Atropine Sulfate Confirm 10/11/20 06:05 Atropine Sulfate 1mg Administered 10/11/20 06:06 Dose 1 mg .ROUTE .STK-MED ONE Bupivacaine HCl Confirm 10/11/20 05:23 Sensorcaine 0.25% 10 Ml Administered 10/11/20 05:24 Dose 10 ml .ROUTE .STK-MED ONE Calcium Carbonate 1 tab 10/11/20 10:00 10/13/20 09:18 Calcium 500mg W/Vit D Tablet PO 11/10/20 09:59 Not Given DAILY CRISTOFER Calcium Carbonate/Glycine 750 mg 10/11/20 18:44 10/11/20 18:47 Tums Ex 750 Mg PO 11/10/20 21:59 750 mg TID PRN Administration [place] Calcium Carbonate/Glycine 750 mg 10/12/20 07:15 Tums Ex 750 Mg PO 11/10/20 18:43 TID PRN PRN [place] Ephedrine Sulfate Confirm 10/11/20 06:45 Ephedrine Sulfate 50 Mg/Ml Administered 10/11/20 06:46 Dose 50 mg .ROUTE .STK-MED ONE Fentanyl Citrate Confirm 10/11/20 06:07 Sublimaze 100 Mcg/2 Ml Administered 10/11/20 06:08 Dose 100 mcg .ROUTE .STK-MED ONE Sodium Chloride 1,000 mls @ 100 mls/hr 10/10/20 22:00 10/10/20 22:15 Sodium Chloride 0.9% 1000 Ml IV 11/09/20 21:59 100 mls/hr .Q10H CRISTOFER Administration Levofloxacin/Dextrose 500 mg in 100 mls @ 100 mls/hr 10/10/20 23:33 10/11/20 01:10 Levofloxacin 500mg/100ml D5w IV 10/11/20 00:32 Infused STAT STA Infusion Metronidazole 500 mg in 100 mls @ 200 mls/hr 10/10/20 23:33 10/11/20 01:10 Flagyl 500 Mg Ivpb IV 10/11/20 00:02 Infused STAT STA Infusion Metronidazole Confirm 10/10/20 23:36 Flagyl 500 Mg Ivpb Administered 10/10/20 23:37 Dose 500 mg in 100 mls @ ud IV .STK-MED ONE Levofloxacin/Dextrose Confirm 10/10/20 23:36 Levofloxacin 500mg/100ml D5w Administered 10/10/20 23:37 Dose 500 mg in 100 mls @ ud IV .STK-MED ONE Sodium Chloride Confirm 10/10/20 22:09 Sodium Chloride 0.9% 1000 Ml Administered 10/10/20 22:10 Dose 1,000 mls @ ud .ROUTE .STK-MED ONE Sodium Chloride 1,000 mls @ 100 mls/hr 10/11/20 01:28 10/11/20 03:41 Sodium Chloride 0.9% 1000 Ml IV 11/10/20 01:27 Not Given .Q10H CRISTOFER Lactated Ringer's 1,000 mls @ 50 mls/hr 10/11/20 05:00 10/11/20 06:24 Lactated Ringers IV 11/10/20 04:59 50 mls/hr .Q20H CRISTOFER Administration Cefoxitin Sodium 2 gm in 50 mls @ 100 mls/hr 10/11/20 05:00 Mefoxin 2 Gm Premix IV 10/11/20 05:29 ONCALLTOOR CRISTOFER Lactated Ringer's Confirm 10/11/20 01:55 Lactated Ringers Administered 10/11/20 01:56 Dose 1,000 mls @ ud IV .STK-MED ONE Cefoxitin Sodium Confirm 10/11/20 01:55 Mefoxin 2 Gm Premix Administered 10/11/20 01:56 Dose 2 gm in 50 mls @ ud IV .STK-MED ONE Lactated Ringer's Confirm 10/11/20 07:28 Lactated Ringers Administered 10/11/20 07:29 Dose 1,000 mls @ ud IV .STK-MED ONE Piperacillin Sod/Tazobactam 100 mls @ 200 mls/hr 10/11/20 12:00 10/12/20 20:53 Sod 3.375 gm/ Sodium Chloride IV 10/14/20 11:59 Not Given Q6HT CRISTOFER Ketorolac Tromethamine Confirm 10/11/20 07:27 Toradol 30 Mg Injection Administered 10/11/20 07:28 Dose 30 mg .ROUTE .STK-MED ONE Midazolam HCl Confirm 10/11/20 06:07 Versed 2 Mg/2 Ml Injection Administered 10/11/20 06:08 Dose 2 mg .ROUTE .STK-MED ONE Miscellaneous Information 1 each 10/11/20 09:45 Medication Intervention 11/10/20 09:44 .RN TO CHECK CRISTOFER Morphine Sulfate 2 mg 10/10/20 21:50 10/10/20 22:15 Morphine Sulfate 2 Mg Inj IV 10/10/20 21:51 2 mg STAT ONE Administration Morphine Sulfate Confirm 10/10/20 22:09 Morphine Sulfate 2 Mg Inj Administered 10/10/20 22:10 Dose 2 mg .ROUTE .STK-MED ONE Morphine Sulfate 4 mg 10/10/20 23:44 10/10/20 23:51 Morphine Sulfate 4 Mg Inj IV 10/10/20 23:45 4 mg STAT ONE Administration Morphine Sulfate Confirm 10/10/20 23:44 Morphine Sulfate 2 Mg Inj Administered 10/10/20 23:45 Dose 2 mg .ROUTE .STK-MED ONE Morphine Sulfate Confirm 10/10/20 23:49 Morphine Sulfate 2 Mg Inj Administered 10/10/20 23:50 Dose 2 mg .ROUTE .STK-MED ONE Morphine Sulfate 4 mg 10/11/20 01:28 10/11/20 03:41 Morphine Sulfate 4 Mg Inj IV 10/16/20 01:27 4 mg Q4H PRN PRN Administration PAIN Morphine Sulfate 3 mg 10/11/20 09:26 10/11/20 09:31 Morphine Sulfate 4 Mg Inj IV 10/16/20 09:25 3 mg Q1H PRN PRN Administration PAIN Morphine Sulfate 3 mg 10/11/20 09:20 Morphine Sulfate 4 Mg Inj IV 10/16/20 09:19 Q1H PRN PAIN Multivitamins Therapeutic 1 tab 10/11/20 10:00 10/13/20 09:18 Theragran Multivitamin PO 11/10/20 09:59 Not Given DAILY CRISTOFER Ondansetron HCl 4 mg 10/10/20 21:50 10/10/20 22:14 Zofran 4 Mg/2 Ml Vial IV 10/10/20 21:51 4 mg STAT ONE Administration Ondansetron HCl Confirm 10/10/20 22:09 Zofran 4 Mg/2 Ml Vial Administered 10/10/20 22:10 Dose 4 mg .ROUTE .STK-MED ONE Ondansetron HCl Confirm 10/10/20 23:44 Zofran 4 Mg/2 Ml Vial Administered 10/10/20 23:45 Dose 4 mg .ROUTE .STK-MED ONE Ondansetron HCl Confirm 10/11/20 07:28 Zofran 4 Mg/2 Ml Vial Administered 10/11/20 07:29 Dose 4 mg .ROUTE .STK-MED ONE Ondansetron HCl 4 mg 10/11/20 09:19 10/12/20 09:01 Zofran 4 Mg/2 Ml Vial IV 11/10/20 09:18 4 mg Q6HPRN PRN Administration Nausea Ondansetron HCl 4 mg 10/12/20 14:22 Zofran Odt 4 Mg PO 11/11/20 14:21 Q4H PRN PRN NAUSEA/VOMITING Propofol Confirm 10/11/20 06:05 Diprivan 200 Mg/20 Ml Administered 10/11/20 06:06 Dose 200 mg IV .STK-MED ONE Rocuronium [place] Confirm 10/11/20 06:05 Zemuron 100 Mg/10 Ml Administered 10/11/20 06:06 Dose 30 mg .ROUTE .STK-MED ONE Succinylcholine Chloride Confirm 10/11/20 06:05 Quelicin Fliptop 200 Mg/10 Ml Administered 10/11/20 06:06 Dose 100 mg .ROUTE .STK-MED ONE Sugammadex Sodium Confirm 10/11/20 06:05 Bridion 200mg/2ml Administered 10/11/20 06:06 Dose 200 mg IV .STK-MED ONE Intake & Output (Last 24 hours) 10/11/20 10/12/20 10/13/20 10/14/20 11:59 11:59 11:59 11:59 Intake Total 244 1933 1395 Output Total 1410 3310 Balance 244 523 -1915 Weight 55.1 kg Laboratory Results (Last 24 hours) 10/11/20 06:59 Surg PTH Diagnosis See Note H Orders (Last 24 hours) Category Date Time Status Activity as Tolerated TOLERATED Activity 10/12/20 21:26 Active Miscellaneous Nursing Order ROUTINE Care 10/12/20 20:36 Active Miscellaneous Nursing Order ROUTINE Care 10/12/20 20:37 Active Amox Tr/Potass Clav. 875 mg [Augmentin 875-125 Med 10/12/20 22:00 Discontinued Tablet] 875 mg PO Q12H Patient Care Notes (Last 24 hours) 10/13/20 11:32 Nursing Note by Tracy Palacio 1130 DC'd home. Transported to personal vehicle accompanied by daughter via w/c. Patient tolerates well. Initialized on 10/13/20 11:32 - END OF NOTE 10/13/20 11:16 Nursing Note by Tracy Palacio DC instructions given. Patient voicies understanding. Follow up appointment scheduled with Dr. Albarado and Dr. Olguin. Patient awaiting for family to pick her up. Initialized on 10/13/20 11:16 - END OF NOTE 10/13/20 10:13 Nursing Note by Tracy Palacio Dr. notified of Dr. Hinds discharging patient. Dr. Olguin is fine with that as long as patient is going home on ATB. Which RX to be sent home with patient. Initialized on 10/13/20 10:13 - END OF NOTE 10/13/20 09:34 Case Management Note by Nieves Ashley S/W PATIENT AND FAMILY- BOTH CONTINUE TO DENY ANY NEEDS AT TIME OF DC. THEY PLAN FOR HER TO RETURN HOME TO HER PRIOR LEVEL OF FUNCTIONING WITH FAMILY TO ASSIST NEEDED Initialized on 10/13/20 09:34 - END OF NOTE 10/13/20 09:22 Nursing Note by Tracy Palacio Patient refused multivitamin and calcium. States, she will take them at home. Initialized on 10/13/20 09:22 - END OF NOTE 10/13/20 08:34 Nursing Note by Tracy Palacio Dr. phoned with new orders to removed shivani drain and may dc home. Initialized on 10/13/20 08:34 - END OF NOTE 10/13/20 07:11 Nursing Note by Ziggy,Jaz EPORT AND PT CARE GIVEN OVER TO DAY SHIFT. Initialized on 10/13/20 07:11 - END OF NOTE 10/12/20 20:10 (created 10/12/20 20:22) Nursing Note by Jaz Trinh @2009 DR. WEISS IN TO SEE PT. GAVE NEW ORDERS FOR: "NO IV", "CHANGE IV ABX TO AUGMENTIN 875MG PO BID TO START TONIGHT", "MAY CHANGE ZOFRAN ORDER TO PO" AND "CHANGE DRSG PRN". ALL ORDER READ BACK AND VERIFIED. DR. WEISS WAS ALSO ASKED ABOUT COLACE ADDED TO ORDERS D/T PT TAKING NORCO, BUT STATED "NO, IT IS NOT NEEDED AT THIS TIME". ALSO GAVE PT DC INSTRUCTIONS OF "NO YOGA OR EXTENSIVE E XERCISES FOR [address] WEISS STATED PLAN IS FOR PT TO DC HOME TOMORROW. Initialized on 10/12/20 20:22 - END OF NOTE 10/12/20 19:15 (created 10/12/20 20:48) Nursing Note by Jaz Trinh REPORT RECEIVED AND PT CARE TAKEN OVER BY THIS NURSE. Initialized on 10/12/20 20:48 - END OF NOTE 10/12/20 17:10 Nursing Note by Aisha Darling 164[address] Dr[address] Olguin bedside. Orders Received: Keep Pt one more night for observation. Initialized on 10/12/20 17:10 - END OF NOTE - Vitals & Intake/Output Vital Signs: Vital Signs Temperature 98.0 F 10/13/20 08:00 Pulse Rate 85 10/13/20 08:00 Respiratory Rate 20 10/13/20 08:00 Blood Pressure 129/63 10/13/20 08:00 O2 Sat by Pulse Oximetry 93 L 10/13/20 08:00 Intake & Output: Intake & Output 10/11/20 10/12/20 10/13/20 10/14/20 11:59 11:59 11:59 11:59 Intake Total 244 1933 1395 Output Total 1410 3310 Balance 244 523 -1915 Weight 55.1 kg - Lab Result Diagrams: 10/12/20 09:13 10/12/20 09:13 Lab Results-Last 24 Hrs: Lab Results-Last 24 Hours 10/11/20 Range/Units 06:59 Surg PTH Diagnosis See Note H Discharge Exam General Appearance: no apparent distress, alert Neurologic Exam: alert, oriented x 3, cooperative, normal mood/affect, nml cerebellar function, sensation nml, No motor deficits Eye Exam: PERRL, EOMI, eyes nml inspection Ears, Nose, Throat Exam: normal ENT inspection, pharynx normal, moist mucous membranes Neck Exam: normal inspection, non-tender, supple, full range of motion Respiratory Exam: normal breath sounds, lungs clear, No respiratory distress Cardiovascular Exam: regular rate/rhythm, normal heart sounds Gastrointestinal/Abdomen Exam: soft, No tenderness, No mass Pelvic Exam: deferred Rectal Exam: deferred Back Exam: normal inspection, normal range of motion, No CVA tenderness, No vertebral tenderness Extremity Exam: normal inspection, normal range of motion Skin Exam: normal color, warm, dry Final Diagnosis/Problem List - Final Discharge Diagnosis/Problem (1) Perforated appendix Status: Resolved Code(s): K35.32 - ACUTE APPENDICITIS WITH PERF AND LOC PERITONITIS, W/O ABSCS - Discharge Discharge Date: 10/13/20 Disposition: Home, Self-Care Condition: Stable Prescriptions: New Amox Tr/Potass Clav. 875 mg [Augmentin 875-125 Tablet] 875 mg PO BID #12 tablet Continue Calcium Carbonate/Vitamin D3 [Calcium 250-D Tablet] 1 tab PO DAILY Multivitamin/Iron/Folic Acid [Centrum Adults Tablet] 1 tab PO DAILY Mv-Min/Vit C/Glut/Lysine/Hb124 [Immune Support Chewable Tablet] 1 tab PO DAILY Instructions: Appendectomy, Laparoscopic Surgery (DC) Follow up with: HENRIETTA ALBARADO [COURTESY STAFF] - 10/18/20 2:20 pm (at office ) LAUREN OLGUIN MD [Primary Care Provider] - 10/20/20 9:30 am (at [email or web address] ) Forms: Discharge Instructions
== END 2020-10-13 11:30 | disposition home or self-care (01) | DRG 373 ==
LOC: ED 20:53 → MED SURG 10-11 01:25 → OBSVTOIN 10-11 08:00
PROVIDERS: ADMIT General Practice; ATTEND General Practice
DX: K35.33 Acute appendicitis with perforation, localized peritonitis, and gangrene, with abscess (principal); R10.31 Right lower quadrant pain; Z20.828 Contact with and (suspected) exposure to other viral communicable diseases
CPT/HCPCS: 36000; 36415; 44960; 74177; 80053; 81001; 83605; 83690; 84484; 85025; 85610; 85730; 86850; 86900; 86901; 96360; 96361; 96365; 96374; 96375; 96376; 99285; U0003; 88304; 99100; J0330; J0461; J0694; J1885; J1956; J2250; J2270; J2405; J2704; J3010; A9270-GY

== ENCOUNTER 2025-02-21 10:26 | Emergency (ER) | payer MEDICARE, BC ==
[2025-02-21 10:38] VITALS: TEMP 98.1
[2025-02-21] MEDS ORDERED: DUONEB 0.5-3 MG/3 ml Neb IH ONE (10:53)
--- NOTE | 2025-02-21 10:54 | ERPHSYRPT ---
- History of Present Illness Time Seen by Provider: 02/21/25 10:31 Source: patient Exam Limitations: no limitations Patient Subjective Stated Complaint: PT states "I woke up friday morning at 5 am and did not feel well. I took a home covid test and it was positive and I was having more and more difficulty breathing and my muscles would spasm on my left side when i coughed so I went to [facility] and they sent me here." Triage Nursing Assessment: pt presented alert and oriented X3, skin pwd. PT able to speak in clear full sentences. PT resting comfortably on the bed. Pt in no apparent respiratory distress. Pt voice slightly raspy. Physician History: Patient states that she has been sick for approximately 1 week. States that she took a home COVID test that was positive. She was seen at [facility]. She here she had tachycardia, increased shortness of breath, O2 at 92%. Therefore sent to the emergency department. Patient denies a history of COPD, other breathing problems, blood clots, congestive heart failure. States that she has had generalized malaise, some nausea. Overall decreased oral intake. She is otherwise up-to-date on all of her vaccinations. She is here with her adult daughter. She otherwise has no chest pain no midsternal chest pain, no radiating pain. She only has some shortness of breath. Allergies/Adverse Reactions: No Known Drug Allergies Allergy (Verified 10/11/20 01:35) Home Medications: Calcium Carbonate/Vitamin D3 [Calcium 250-D Tablet] 1 tab PO DAILY 10/11/20 [History] Hx Tetanus, Diphtheria Vaccination/Date Given: Yes Hx Influenza Vaccination/Date Given: Yes Hx Pneumococcal Vaccination/Date Given: No Immunizations Up to Date: No Travel Risk - International Travel Have you traveled outside of the country in past 3 weeks: No - Emerging Infectious Disease Are you exhibiting symptoms associated with any current EIDs: No - Past Medical History Pertinent Past Medical History: Yes Neurological History: No Pertinent History ENT History: No Pertinent History Cardiac History: No Pertinent History Respiratory History: No Pertinent History Endocrine Medical History: No Pertinent History Musculoskeletal History: No Pertinent History GI Medical History: GERD Psycho-Social History: No Pertinent History Female Reproductive Disorders: No Pertinent History Other Medical History: prolapsed bladder - Past Surgical History Past Surgical History: Yes Neuro Surgical History: No Pertinent History Cardiac: No Pertinent History Respiratory: No Pertinent History Gastrointestinal: Appendectomy Genitourinary: No Pertinent History Musculoskeletal: No Pertinent History Female Surgical History: Hysterectomy Other Surgical History: removal of cyst from ovary - Social History Smoking Status: Never smoker Exposure to second hand smoke: Yes Drug Use: none - Social Determinants of Health Will the patient participate in the screening: Declined to provide - Nursing Vital Signs Nursing Vital Signs: Initial Vital Signs Temperature 98.1 F 02/21/25 10:30 Pulse Rate 125 H 02/21/25 10:30 Respiratory Rate 22 02/21/25 10:30 Blood Pressure 131/78 02/21/25 10:30 O2 Sat by Pulse Oximetry 95 02/21/25 10:30 Pain Scale Pain Intensity 2 - Physical Exam SpO2: 90 Comments: 02/21/25 10:53 Review of Systems Constitutional: Negative for fever. HENT: Cough, cold, congestion Respiratory: Shortness of breath Cardiovascular: Negative for chest pain. Gastrointestinal: Negative for abdominal pain. Genitourinary: Negative for dysuria. Musculoskeletal: Negative for back pain. Skin: Negative for rash. Neurological: Negative for headaches. Psychiatric/Behavioral: Negative for behavioral problems. All other systems reviewed and are negative. Physical Exam Vitals signs and nursing note reviewed. Constitutional: Appearance: Patient is well-developed. HENT: Head: Normocephalic and atraumatic. Eyes: Conjunctiva/sclera: Conjunctivae normal. Neck: Musculoskeletal: Normal range of motion. Trachea: No tracheal deviation. Cardiovascular: Rate and Rhythm: Tachycardia Pulmonary: Effort: Pulmonary effort is normal. On 2 L of oxygen, decreased breath sounds on left side Abdominal: Palpations: Abdomen is soft. Musculoskeletal: General: No deformity. Skin: General: Skin is warm and dry. Neurological/ Psychiatric: Mental Status: Mental status, behavior, interaction with environment is appropriate for patient's age and condition - Course Nursing assessment & vital signs reviewed: Yes EKG Interpreted by Me: Sinus Rhythm (EKG, my interpretation at 1031 demonstrates sinus tachycardia, rate of 123, HI interval 143, QRS 79, QTc is 434) Ordered Tests: Active Orders 24 hr Category Date Time Status [place] [facility] STAT Care 02/21/25 10:47 Completed EKG-ER Only STAT Care 02/21/25 10:46 Completed IV Insertion STAT Care 02/21/25 10:46 Completed CHEST 1 VIEW (PORTABLE) Stat Exams 02/21/25 10:47 Completed CHEST WITH CONTRAST [CT] Stat Exams 02/21/25 11:57 Completed BLOOD CULTURE Stat Lab 02/21/25 11:07 Received BMP Q4H Lab 02/21/25 13:40 Completed CBC W DIFF Stat Lab 02/21/25 10:50 Results CMP Stat Lab 02/21/25 10:50 Completed Lactic Acid Stat Lab 02/21/25 10:55 Completed Lactic Acid Stat Lab 02/21/25 13:12 Completed Manual Differential NC Stat Lab 02/21/25 10:50 Results NT PRO BNPII Stat Lab 02/21/25 10:50 Completed Pathologist Review Stat Lab 02/21/25 10:50 Results TROPONIN Q4H Lab 02/21/25 10:50 Completed TROPONIN Q4H Lab 02/21/25 13:40 Completed TROPONIN Q4H Lab 02/21/25 19:00 Ordered Respiratory Therapy Assessment DAILY RT 02/21/25 11:12 Completed Medication Summary Discontinued Medications Generic Name Dose Route Start Last Admin Trade Name Freq PRN Reason Stop Dose Admin Acetaminophen 1,000 mg 02/21/25 12:53 02/21/25 13:02 Acetaminophen 500 Mg Tablet PO 02/21/25 12:54 1,000 mg STAT STA Administration Acetaminophen Confirm 02/21/25 13:01 Acetaminophen 500 Mg Tablet Administered 02/21/25 13:02 Dose 1,000 mg .ROUTE .STK-MED ONE Albuterol/Ipratropium 3 ml 02/21/25 10:46 02/21/25 11:00 Ipratropium/Albuterol Sulfate 3 Ml Ampul.Neb IH 02/21/25 10:47 3 ml STAT ONE Administration Albuterol/Ipratropium Confirm 02/21/25 10:53 Ipratropium/Albuterol Sulfate 3 Ml Ampul.Neb Administered 02/21/25 10:54 Dose 3 ml IH .STK-MED ONE Azithromycin Confirm 02/21/25 11:12 Azithromycin Inj Administered 02/21/25 11:13 Dose 500 mg IV .STK-MED ONE Methylprednisolone Sodium 0 mg 02/21/25 10:46 02/21/25 11:14 Succinate 125 mg/ Sterile IV 02/21/25 10:47 125 mg Water 2 ml STAT ONE Administration Sodium Chloride 1,000 mls @ 999 mls/hr 02/21/25 10:46 02/21/25 12:16 Sodium Chloride 0.9% 1000 Ml IV 02/21/25 11:46 Infused .Q1H1M STA Infusion Azithromycin 500 mg/ Sodium 250 mls @ 250 mls/hr 02/21/25 10:46 02/21/25 12:26 Chloride IV 02/21/25 11:45 Infused STAT STA Infusion Sodium Chloride Confirm 02/21/25 11:13 Sodium Chloride 0.9% 250 Ml Administered 02/21/25 11:14 Dose 250 mls @ ud IV .STK-MED ONE Sodium Chloride Confirm 02/21/25 11:13 Sodium Chloride 0.9% 1000 Ml Administered 02/21/25 11:14 Dose 1,000 mls @ ud .ROUTE .STK-MED ONE Piperacillin Sod/Tazobactam 100 mls @ 200 mls/hr 02/21/25 11:35 02/21/25 13:15 Sod 4.5 gm/ Sodium Chloride IV 02/21/25 12:04 Infused STAT STA Infusion Sodium Chloride 1,000 mls @ 999 mls/hr 02/21/25 12:17 02/21/25 13:44 Sodium Chloride 0.9% 1000 Ml IV 02/21/25 13:17 Infused .Q1H1M STA Infusion Sodium Chloride Confirm 02/21/25 12:40 Sodium Chloride 0.9% Administered 02/21/25 12:41 Dose 100 mls @ ud .ROUTE .STK-MED ONE Sodium Chloride Confirm 02/21/25 12:40 Sodium Chloride 0.9% 1000 Ml Administered 02/21/25 12:41 Dose 1,000 mls @ ud .ROUTE .STK-MED ONE Sodium Chloride 1,000 mls @ 999 mls/hr 02/21/25 13:58 02/21/25 14:00 Sodium Chloride 0.9% 1000 Ml IV 02/21/25 14:58 999 mls/hr .Q1H1M STA Administration Sodium Chloride Confirm 02/21/25 13:59 Sodium Chloride 0.9% 1000 Ml Administered 02/21/25 14:00 Dose 1,000 mls @ ud .ROUTE .STK-MED ONE Methylprednisolone Sodium Succinate Confirm 02/21/25 11:12 Methylprednis Sod Succ 125 Mg/2 Ml Vial Administered 02/21/25 11:13 Dose 125 mg .ROUTE .STK-MED ONE Ondansetron HCl 8 mg 02/21/25 12:17 02/21/25 12:41 Ondansetron Hcl 4 Mg/2 Ml Vial IV 02/21/25 12:18 8 mg STAT ONE Administration Ondansetron HCl Confirm 02/21/25 12:39 Ondansetron Hcl 4 Mg/2 Ml Vial Administered 02/21/25 12:40 Dose 4 mg .ROUTE .STK-MED ONE Ondansetron HCl Confirm 02/21/25 12:42 Ondansetron Hcl 4 Mg/2 Ml Vial Administered 02/21/25 12:43 Dose 4 mg .ROUTE .STK-MED ONE Piperacillin Sod/Tazobactam Sod Confirm 02/21/25 12:40 Piperacillin/Tazobactam Sodium 4.5 Gm Vial Administered 02/21/25 12:41 Dose 4.5 gm IV .STK-MED ONE Sterile Water Confirm 02/21/25 11:12 Water For Injection,Sterile 10 Ml Vial Administered 02/21/25 11:13 Dose 10 ml IJ .STK-MED ONE Lab/Rad Data: Laboratory Result Diagrams 02/21/25 10:50 02/21/25 13:40 Laboratory Results 02/21/25 02/21/25 02/21/25 Range/Units 13:40 13:40 13:12 WBC (3.98-10.04) x10^3/uL RBC (3.93-5.22) x10^6/uL Hgb (11.2-15.7) g/dL Hct (34.1-44.9) % MCV (79.4-94.8) fL MCH (25.6-32.2) pg MCHC (32.2-35.5) g/dL RDW (11.7-14.4) % Plt Count (182-369) x10^3/uL MPV (9.4-12.3) fL Segmented Neutrophils (34.0-71.1) % Band Neutrophils (0.0-2.0) % Lymphocytes (Manual) (19.3-51.7) % Monocytes (Manual) (4.7-12.5) % Toxic Granulation Platelet Estimate (NORMAL) RBC Morphology Smear Path Review Sodium 126 L (135-145) mmol/L Potassium 4.3 (3.5-5.1) mmol/L Chloride 95 L (98-107) mmol/L Carbon Dioxide 17 L (22-30) mmol/L Anion Gap 19.0 H (5-15) MEQ/L BUN 14 (7-17) mg/dL Creatinine 0.78 (0.52-1.04) mg/dL Estimated GFR 77.7 ML/MIN Glucose 127 H (74-106) mg/dL Lactic Acid 3.3 H (0.4-2.0) Calcium 7.9 L (8.4-10.2) mg/dL Total Bilirubin (0.2-1.3) mg/dL AST (14-36) U/L ALT (0-35) U/L Alkaline Phosphatase (38-126) U/L Troponin I < 0.012 (0.000-0.033) ng/mL NT-Pro-B Natriuret Pep (<300) pg/mL Serum Total Protein (6.3-8.2) g/dL Albumin (3.5-5.0) g/dL Influenza Type A Ag (NEGATIVE) Influenza Type B Ag (NEGATIVE) RSV (PCR) (NEGATIVE) SARS-CoV-2 (PCR) (NEGATIVE) 02/21/25 02/21/25 02/21/25 Range/Units 11:00 10:55 10:50 WBC (3.98-10.04) x10^3/uL RBC (3.93-5.22) x10^6/uL Hgb (11.2-15.7) g/dL Hct (34.1-44.9) % MCV (79.4-94.8) fL MCH (25.6-32.2) pg MCHC (32.2-35.5) g/dL RDW (11.7-14.4) % Plt Count (182-369) x10^3/uL MPV (9.4-12.3) fL Segmented Neutrophils (34.0-71.1) % Band Neutrophils (0.0-2.0) % Lymphocytes (Manual) (19.3-51.7) % Monocytes (Manual) (4.7-12.5) % Toxic Granulation Platelet Estimate (NORMAL) RBC Morphology Smear Path Review Sodium (135-145) mmol/L Potassium (3.5-5.1) mmol/L Chloride (98-107) mmol/L Carbon Dioxide (22-30) mmol/L Anion Gap (5-15) MEQ/L BUN (7-17) mg/dL Creatinine (0.52-1.04) mg/dL Estimated GFR ML/MIN Glucose (74-106) mg/dL Lactic Acid 3.2 H (0.4-2.0) Calcium (8.4-10.2) mg/dL Total Bilirubin (0.2-1.3) mg/dL AST (14-36) U/L ALT (0-35) U/L Alkaline Phosphatase (38-126) U/L Troponin I < 0.012 (0.000-0.033) ng/mL NT-Pro-B Natriuret Pep (<300) pg/mL Serum Total Protein (6.3-8.2) g/dL Albumin (3.5-5.0) g/dL Influenza Type A Ag NEGATIVE (NEGATIVE) Influenza Type B Ag NEGATIVE (NEGATIVE) RSV (PCR) NEGATIVE (NEGATIVE) SARS-CoV-2 (PCR) NEGATIVE (NEGATIVE) 02/21/25 02/21/25 Range/Units 10:50 10:50 WBC 55.6 H* (3.98-10.04) x10^3/uL RBC 4.52 (3.93-5.22) x10^6/uL Hgb 13.9 (11.2-15.7) g/dL Hct 41.4 (34.1-44.9) % MCV 91.6 (79.4-94.8) fL MCH 30.8 (25.6-32.2) pg MCHC 33.6 (32.2-35.5) g/dL RDW 13.4 (11.7-14.4) % Plt Count 480 H (182-369) x10^3/uL MPV 9.8 (9.4-12.3) fL Segmented Neutrophils 87 H (34.0-71.1) % Band Neutrophils 7 H (0.0-2.0) % Lymphocytes (Manual) 4 L (19.3-51.7) % Monocytes (Manual) 2 L (4.7-12.5) % Toxic Granulation 1+ Platelet Estimate INCREASED (NORMAL) RBC Morphology NORMAL Smear Path Review Pending Sodium 122 L (135-145) mmol/L Potassium 4.2 (3.5-5.1) mmol/L Chloride 89 L (98-107) mmol/L Carbon Dioxide 16 L* (22-30) mmol/L Anion Gap 21.8 H (5-15) MEQ/L BUN 18 H (7-17) mg/dL Creatinine 0.95 (0.52-1.04) mg/dL Estimated GFR 61.3 ML/MIN Glucose 110 H (74-106) mg/dL Lactic Acid (0.4-2.0) Calcium 9.2 (8.4-10.2) mg/dL Total Bilirubin 1.00 (0.2-1.3) mg/dL AST 44 H (14-36) U/L ALT 54 H (0-35) U/L Alkaline Phosphatase 203 H (38-126) U/L Troponin I (0.000-0.033) ng/mL NT-Pro-B Natriuret Pep 812 (<300) pg/mL Serum Total Protein 6.0 L (6.3-8.2) g/dL Albumin 3.0 L (3.5-5.0) g/dL Influenza Type A Ag (NEGATIVE) Influenza Type B Ag (NEGATIVE) RSV (PCR) (NEGATIVE) SARS-CoV-2 (PCR) (NEGATIVE) - Progress Progress: improved Progress Note: 02/21/25 10:54 Differential diagnosis includes: PNA, STEMI, NSTEMI, other infection, musculoskeletal pain, pneumothorax - We'll obtain basic labs, fluids, EKG, troponin, chest x-ray - EKG shows no ST changes - my read - O2 saturations consistently greater than 95% on 2 L Patient did meet our sepsis criteria. She had leukocytosis greater than 55,000, bandemia of 7, likely pleural effusion on chest x-ray. Patient was already given azithromycin upon arrival this was because I did think patient had a pneumonia based on lung sounds. However, given that patient has sepsis we did expand coverage with Zosyn. Patient has received 1 L of fluid. However she was still tachycardic. Patient was hyponatremic therefore we do want to be careful about correcting sodium too quickly. However, previous sodiums have been normal. Therefore this is likely an acute sodium issue due to the sepsis, infection, possible COVID we will continue to treat with fluids in the ER. Also concerned that patient may become hypotensive or otherwise hypotensive shock, severe sepsis. Reevaluation: Chest x-ray shows obvious whiteout of left lung, this does correlate with my physical exam. We did obtain a CTA of the chest looking for any pulmonary embolism, other issue. CT scan did show a large left pleural effusion with associated left lower lobe pneumonia. Always a concern for an empyema given how sick the patient has. Antibiotics have been expanded as above, continue fluid resuscitation. Patient did have an elevated lactic acid. However, repeat lactic acid remained elevated despite appropriate fluid resuscitation. 1432 Patient also had 1 low blood pressure reading. Given this my overall concern is high that patient is moving towards severe sepsis. I did discuss this all with the patient and family. Given my concerns, I did immediately page [facility] which has pulmonary medicine, ICU, more resources for this very ill patient. I spoke over the phone with on-call emergency room physician, Dr. Hubbard. We did discuss the case in detail, discussed all care that patient had received. He did accept patient ER to ER. We were able to immediately call [facility] ambulance transport, they were able to take patient directly to the emergency department. We did start 3rd L of fluid prior to transfer. This was secondary to the 1 low blood pressure reading. Patient is still awake and alert, she is conversational. Transport is at bedside. Will transfer patient at this time. Counseled pt/family regarding: lab results, diagnosis, need for follow-up, rad results - Departure Departure Disposition: Transfer Clinical Impression: Severe sepsis, Bandemia, Pleural effusion, Hyponatremia, Low blood pressure reading, High anion gap, Lactic acidosis, Left lower lobe pneumonia, Leukocytosis (leucocytosis) Condition: Stable Critical Care Time: Yes Critical Care Time(excluding separately billable procedures): Critical 30-74 mins Referrals: AJITH BEE DO [Primary Care Provider, [facility]] - Follow up/PCP as directed
[2025-02-21] MEDS: DUONEB 0.5-3 MG/3 ml Neb IH ONE (11:00)
[2025-02-21] MEDS ORDERED: Sterile H2O 10 ml IJ ONE (11:12)
[2025-02-21] MEDS ORDERED: ZITHROMAX IV IV ONE (11:12)
[2025-02-21] MEDS: solu-MEDROL 125 MG, Sterile H2O 10 ml 2 ML IV ONE (11:14)
[2025-02-21 11:17] LABS: Hematocrit 41.4 % (34.1-44.9); Hemoglobin 13.9 g/dL (11.2-15.7); Mean Corpuscular Hemoglobin 30.8 pg (25.6-32.2); Mean Corpuscular Hgb Concent. 33.6 g/dL (32.2-35.5); Platelet Count 480 x10^3/uL (182-369); Red Blood Count 4.52 x10^6/uL (3.93-5.22)
[2025-02-21] MEDS: ZITHROMAX IV*** 500 MG in Sodium Chloride 0.9% 250 ML 250 ML IV STA (11:21)
[2025-02-21 11:23] LABS: White Blood Count 55.6 x10^3/uL (3.98-10.04)
[2025-02-21 11:36] LABS: BAND 7 % (0.0-2.0); Total Cells Counted 100; Toxic Granulation 1+
[2025-02-21 11:49] LABS: Calcium 9.2 mg/dL (8.4-10.2); Creatinine 1 0.95 mg/dL (0.52-1.04); EST GLOMERULAR FILTRATION RATE 61.3 ML/MIN; Glucose 110.0 mg/dL (74-106); NT PRO BNPII 812.0 pg/mL (<300); Potassium 4.2 mmol/L (3.5-5.1); SGOT/AST 44.0 U/L (14-36); SGPT/ALT 54.0 U/L (0-35); Total Protein 6.0 g/dL (6.3-8.2)
[2025-02-21 11:50] LABS: Carbon Dioxide 16.0 mmol/L (22-30)
[2025-02-21 12:07] LABS: INFLUENZA A NEGATIVE (NEGATIVE); INFLUENZA B NEGATIVE (NEGATIVE); RESPIRATORY SYNCTIAL VIRUS NEGATIVE (NEGATIVE); SARS-CoV-2 Xpert Express NEGATIVE (NEGATIVE)
--- NOTE | 2025-02-21 12:19 | XRAY ---
CLINICAL HISTORY: PNA COMPARISON: No prior studies are available for comparison. TECHNIQUE: An X-ray image of the chest is obtained in AP projection. FINDINGS: Pulmonary Parenchyma: Left-sided middle and lower zone complete opacification, and left upper zone partial opacification, with blunting of the left costophrenic angle. The appearances likely represent severe pleural effusion with associated passive collapse of the left lower lobe. There is a left middle zone area of haziness, interstitial thickening, and atelectatic bands with a subtle air-bronchogram, likely secondary to the effect of the above-mentioned pleural effusion. Heart and Mediastinum: Left cardiac border is not visualized, silhouetted by the opacified left lung. Bony Thorax: The bony thorax appears intact without fractures or deformities. Bilateral acromioclavicular osteoarthritic changes. Soft Tissues: Soft tissues overlying the chest wall are unremarkable. IMPRESSION: 1. Severe left-sided pleural effusion with associated collapse of the left lower lobe, and changes within the left middle zone (atelectasis, possible air-space opacification). 2. Correlation with clinical findings and with a chest CT scan is advised to rule out any occult lesions if clinically indicated. Electronically Signed by: Juan Ware MD. (02/21/2025 12:18:54 EST)
[2025-02-21] MEDS ORDERED: Zofran 4 MG/2 ML VIAL ONE ×2 (12:39→12:42)
[2025-02-21] MEDS ORDERED: PIPERACILLIN/TAZOBACTAM IV ONE (12:40)
[2025-02-21] MEDS: Zofran 4 MG/2 ML VIAL IV ONE (12:41)
[2025-02-21] MEDS ORDERED: TYLENOL EXTRA STRENGTH 500 MG ONE (13:01)
[2025-02-21] MEDS: TYLENOL EXTRA STRENGTH 500 MG PO STA (13:02)
--- NOTE | 2025-02-21 13:45 | XRAY ---
CLINICAL HISTORY: SOB, tachycardia, effusion on CXR COMPARISON: 02/21/2025 09:46:12 PSYCHIATRY PHYSICIAN reviewed. TECHNIQUE: Contiguous 3.[address] images of the chest were acquired with administration of intravenous contrast. Coronal and sagittal reconstructions were obtained. 80 cc isovue 370 was administered for post-contrast images. One of the following dose reduction techniques was utilized for this exam: Automated exposure control, adjustment of the mA and/or kV according to patient size, and use of iterative reconstruction. FINDINGS: Lungs: Moderate to marked pleural effusion with consolidation?collapse of the left lower lobe and posterior segment of the left upper lobe. Right lower lobe atelectatic bands are seen. No ground-glass opacities or interstitial changes. No right pleural effusion or pleural thickening. Mediastinum: No mediastinal mass or abnormal lymphadenopathy. Normal appearance of the thymus. Hilar Structures: Normal size and configuration, no enlargement. Heart and Great Vessels: Normal heart size and configuration. Mild pericardial effusion. Normal caliber and course of the thoracic aorta and other great vessels with mild atherosclerosis. Normal enhancement of the great vessels post-contrast. Pulmonary Arteries: No evidence of pulmonary embolism. Normal size and course of the pulmonary arteries. Esophagus: Sliding hiatal hernia is seen. Small left retrocardiac lymph node measuring about 12 mm. Normal course and caliber. No masses or dilatation. Bones: No fractures or lytic/sclerotic lesions. Mild degenerative changes. No evidence of rib fractures. Chest Wall: No masses or soft tissue abnormalities. Upper Abdomen: Enlarged fatty liver and a small right hepatic hypodense focal lesion measuring about 13 mm. Left renal cortical cysts. Thyroid: Normal size and morphology. No nodules or masses. IMPRESSION: 1. Moderate to marked left pleural effusion with associated passive collapse?consolidation of the left lower lobe and posterior segment of the left upper lobe. 2. Right lower lobe atelectatic bands. 3. No evidence of pulmonary embolism. 4. Mild pericardial effusion. 5. Small left retrocardiac lymph node (12 mm), likely reactive. 6. Sliding hiatal hernia. 7. Fatty liver with a small right hepatic hypodense lesion (13 mm), indeterminate. Triphasic CT or ultrasound is recommended if clinically indicated. 8. No time interval changes compared to CXR. Electronically Signed by: Juan Ware MD. (02/21/2025 13:43:26 EST)
[2025-02-21 14:03] LABS: Calcium 7.9 mg/dL (8.4-10.2); Carbon Dioxide 17.0 mmol/L (22-30); Creatinine 1 0.78 mg/dL (0.52-1.04); EST GLOMERULAR FILTRATION RATE 77.7 ML/MIN; Glucose 127.0 mg/dL (74-106); Potassium 4.3 mmol/L (3.5-5.1)
[2025-02-21 14:11] VITALS: BP 95/62; PULSE 164; RESP 27
[2025-02-21 14:33] VITALS: O2SAT 90
== END 2025-02-21 14:22 | disposition short-term general hospital (02) ==
LOC: ED 10:26
DX: A41.9 Sepsis, unspecified organism (principal); J18.9 Pneumonia, unspecified organism; J90 Pleural effusion, not elsewhere classified; R65.20 Severe sepsis without septic shock; D72.825 Bandemia; E87.1 Hypo-osmolality and hyponatremia; R03.1 Nonspecific low blood-pressure reading; E87.20 Acidosis, unspecified; D72.829 Elevated white blood cell count, unspecified; R06.02 Shortness of breath

== ENCOUNTER 2025-03-04 16:26 | Inpatient (IN) | payer MEDICARE, BC ==
--- NOTE | 2025-03-04 16:49 | ERPHSYRPT ---
- History of Present Illness Time Seen by Provider: 03/04/25 16:49 Source: patient, family Exam Limitations: no limitations Physician History: This is a 79-year-old white female patient who is very active at home and doing yoga prior to 02/21/2025 when she noticed increasing shortness of breath especially with exertion as well as bilateral lower extremity edema. A workup here in our emergency department on 02/21/2025 showed hyponatremia with a sodium of 122 normal BNP and a normal troponin level. She had a white blood cell count of 55.6. CT scan of the chest showed no pulmonary embolus but had a large left- sided pleural effusion associated with left lower lobe pneumonia. Patient was transferred to [facility] in [facility] where she stayed until 02/27/2025. She was diagnosed with acute respiratory failure and hypoxia, pleural effusion, atrial fibrillation, left sided pneumonia, COVID-19 virus infection and sepsis. During the hospital course, information I gathered from reviewing the patient's admission and discharge note from [facility], the patient was known to have Streptococcus pneumonia growing out of her pleural effusion. This also grew out of blood cultures here at [facility]. I reviewed the sensitivities of the final report from [facility] blood culture. The organism is sensitive to both doxycycline and sulfa medication. Patient required thoracostomy tube placement to drain a large left-sided pleural effusion. Salvage Worker evaluated the patient at [facility] and it was felt the patient had a leukemoid reaction. Recommendation was to continue treating the primary lung infection. Patient was treated with steroids, IV antibiotics and remdesivir. With time, the white blood cell count was trending downward. Patient was never diagnosed in the past with atrial fibrillation but she was in atrial fibrillation RVR during her stay there. A cardiac echo did not show significant heart failure. Patient was placed on amiodarone and Eliquis after discharge. She was also placed on clindamycin antibiotics for 7 days post discharge. Patient was seen in her primary care provider's office today and it was felt that she was still having significant dyspnea on exertion and felt that maybe her bilateral lower extremity edema was more significant than when she was at the hospital at [facility] in [facility]. She was never on oxygen supplementation prior to the hospitalization. When she is not up and moving her oxygen saturations were fairly good. However, it was noted that her oxygen saturations dropped with exertion and at the time of discharge she was placed on 3 L of nasal cannula oxygen. She arrives to our emergency department with oxygen saturation level 98 to 99% on 3 L of oxygen via nasal cannula. Timing/Duration: day(s) (Worsening over the last few days) Severity of Dyspnea-Max: moderate Severity of Dyspnea-Current: moderate (With exertion) Possible Cause: occasional episodes (Recently in the last week) Associated Symptoms: weakness Allergies/Adverse Reactions: No Known Drug Allergies Allergy (Verified 03/04/25 16:41) Home Medications: Calcium Carbonate/Vitamin D3 [Calcium 250-D Tablet] 1,000 mg PO DAILY 10/11/20 [History] Amiodarone HCl 200 mg [Cordarone 200 MG] 200 mg PO DAILY 03/04/25 [History] Apixaban [Eliquis] 5 mg PO BID 03/04/25 [History] Cholecalciferol (Vitamin D3) [Vitamin D3] 1 cap PO DAILY 03/04/25 [History] clindamycin HCL [Clindamycin HCl] 300 mg PO TID 03/04/25 [History] Hx Tetanus, Diphtheria Vaccination/Date Given: Yes Hx Influenza Vaccination/Date Given: Yes Hx Pneumococcal Vaccination/Date Given: No Travel Risk - International Travel Have you traveled outside of the country in past 3 weeks: No - Emerging Infectious Disease Are you exhibiting symptoms associated with any current EIDs: No - Review of Systems Constitutional: Weakness Eyes: No Symptoms Ears, Nose, & Throat: No Symptoms Respiratory: Dyspnea on Exertion (BOUCHER) Cardiac: No Symptoms Abdominal/Gastrointestinal: No Symptoms Genitourinary Symptoms: No Symptoms Musculoskeletal: No Symptoms Skin: No Symptoms Neurological: No Symptoms Psychological: No Symptoms Endocrine: No Symptoms Hematologic/Lymphatic: No Symptoms Immunological/Allergic: No Symptoms - Past Medical History Pertinent Past Medical History: Yes Neurological History: No Pertinent History ENT History: No Pertinent History Cardiac History: No Pertinent History Respiratory History: No Pertinent History Endocrine Medical History: No Pertinent History Musculoskeletal History: No Pertinent History GI Medical History: GERD Psycho-Social History: No Pertinent History Female Reproductive Disorders: No Pertinent History Other Medical History: prolapsed bladder - Past Surgical History Past Surgical History: Yes Neuro Surgical History: No Pertinent History Cardiac: No Pertinent History Respiratory: No Pertinent History Gastrointestinal: Appendectomy Genitourinary: No Pertinent History Musculoskeletal: No Pertinent History Female Surgical History: Hysterectomy Other Surgical History: removal of cyst from ovary - Social History Smoking Status: Never smoker Exposure to second hand smoke: Yes Drug Use: none - Social Determinants of Health Will the patient participate in the screening: Declined to provide - Nursing Vital Signs Nursing Vital Signs: Initial Vital Signs Temperature 96.9 F 03/04/25 16:28 Pulse Rate 75 03/04/25 16:28 Respiratory Rate 25 H 03/04/25 16:28 Blood Pressure 170/89 03/04/25 16:28 O2 Sat by Pulse Oximetry 97 03/04/25 16:28 Pain Scale Pain Intensity 0 - Physical Exam General Appearance: mild distress, alert, anxiety Eye Exam: PERRL/EOMI, eyes nml inspection Ears, Nose, Throat Exam: hearing grossly normal, normal ENT inspection, normal pharynx Neck Exam: normal inspection, non-tender, supple, full range of motion Respiratory Exam: lungs clear (Left lower lung field mild decrease in lung sounds), airway intact, No chest tenderness, No respiratory distress Cardiovascular/Chest Exam: normal heart sounds, regular rate/rhythm Abdominal/Gastrointestinal Exam: soft, normal bowel sounds, No tenderness Rectal Exam: not done Extremity Exam: non-tender, normal range of motion, pedal edema (Bilateral lower extremities to just above the knees), No allyson's sign Neurologic Exam: alert, oriented x 3, cooperative, lamp decorator II-XII nml as tested, sensation nml Skin Exam: normal color, warm, dry Lymphatic Exam: No adenopathy SpO2 Interpretation: normal O2 Delivery: Room Air - Course Nursing assessment & vital signs reviewed: Yes EKG Interpreted by Me: RATE (74), Sinus Rhythm, NORMAL AXIS, NORMAL INTERVALS, NORMAL QRS, Other (QTc is 270. No acute ischemic changes on this twelve-lead EKG. The computer read is normal sinus rhythm. However, it appears to me there still is a rate controlled atrial fibrillation) Ordered Tests: Active Orders 24 hr Category Date Time Status Escrow Closer STAT Care 03/04/25 17:02 Active EKG-ER Only STAT Care 03/04/25 16:58 Completed IV Insertion STAT Care 03/04/25 16:58 Active Pulse Oximetry (ED) STAT Care 03/04/25 16:58 Active CHEST 1 VIEW (PORTABLE) Stat Exams 03/04/25 16:58 Taken CHEST 1 VIEW (PORTABLE) Stat Exams 03/04/25 18:33 Taken CHEST WITH CONTRAST [CT] Stat Exams 03/04/25 18:34 Taken BLOOD CULTURE Stat Lab 03/04/25 17:26 Received CBC W DIFF Stat Lab 03/04/25 17:17 Completed CMP Stat Lab 03/04/25 17:17 Completed Lactic Acid Stat Lab 03/04/25 16:58 Completed MAGNESIUM Stat Lab 03/04/25 17:17 Completed NT PRO BNPII Stat Lab 03/04/25 17:17 Completed PROTIME WITH INR Stat Lab 03/04/25 17:17 Completed TROPONIN Q4H Lab 03/04/25 17:17 Completed TROPONIN Q4H Lab 03/04/25 21:00 Ordered TROPONIN Q4H Lab 03/05/25 01:00 Ordered Medication Summary Generic Name Dose Route Start Last Admin Trade Name Freq PRN Reason Stop Dose Admin Sodium Chloride 500 mls @ 100 mls/hr 03/04/25 18:45 03/04/25 18:38 Sodium Chloride 0.9% 500 Ml IV 04/03/25 18:44 100 mls/hr .Q5H CRISTOFER Administration Discontinued Medications Generic Name Dose Route Start Last Admin Trade Name Freq PRN Reason Stop Dose Admin Furosemide 40 mg 03/04/25 18:14 03/04/25 18:40 Furosemide 40 Mg/4 Ml Vial IV 03/04/25 18:15 40 mg STAT ONE Administration Furosemide Confirm 03/04/25 18:36 Furosemide 40 Mg/4 Ml Vial Administered 03/04/25 18:37 Dose 40 mg .ROUTE .STK-MED ONE Piperacillin Sod/Tazobactam 100 mls @ 200 mls/hr 03/04/25 18:14 03/04/25 19:09 Sod 3.375 gm/ Sodium Chloride IV 03/04/25 18:43 Infused STAT STA Infusion Sodium Chloride Confirm 03/04/25 18:36 Sodium Chloride 0.9% Administered 03/04/25 18:37 Dose 100 mls @ ud .ROUTE .STK-MED ONE Piperacillin Sod/Tazobactam Sod Confirm 03/04/25 18:36 Piperacillin/Tazobactam Sodium 3.375 Gm Vial Administered 03/04/25 18:37 Dose 3.375 gm IV .STK-MED ONE Potassium Chloride 20 meq 03/04/25 18:10 03/04/25 18:41 Potassium Chloride Tab 10 Meq Tab PO 03/04/25 18:11 20 meq STAT ONE Administration Potassium Chloride Confirm 03/04/25 18:36 Potassium Chloride Tab 10 Meq Tab Administered 03/04/25 18:37 Dose 20 meq .ROUTE .STK-MED ONE Lab/Rad Data: Laboratory Result Diagrams 03/04/25 17:17 03/04/25 17:17 Laboratory Results 03/04/25 03/04/25 03/04/25 Range/Units 17:17 17:17 17:17 WBC (3.98-10.04) x10^3/uL RBC (3.93-5.22) x10^6/uL Hgb (11.2-15.7) g/dL Hct (34.1-44.9) % MCV (79.4-94.8) fL MCH (25.6-32.2) pg MCHC (32.2-35.5) g/dL RDW (11.7-14.4) % Plt Count (182-369) x10^3/uL MPV (9.4-12.3) fL Gran % (34.0-71.1) % Immature Gran % (Auto) (0.001-0.429) % Nucleat RBC Rel Count (0.00-0.2) % Eos # (Auto) (0.04-0.36) x10^3/uL Immature Gran # (Auto) (0.001-0.031) x10^3u/L Absolute Lymphs (auto) (1.18-3.74) x10^3/uL Absolute Monos (auto) (0.24-0.86) x10^3/uL Absolute Nucleated RBC (0.00-0.012) x10^3u/L Lymphocytes % (19.3-51.7) % Monocytes % (4.7-12.5) % Eosinophils % (0.7-5.8) % Basophils % (0.1-1.2) % Absolute Granulocytes (1.56-6.13) x10^3/uL Basophils # (0.01-0.08) x10^3/uL PT 11.2 (9.4-12.5) SECONDS INR 1.00 (0.8-3.0) Sodium 136 (135-145) mmol/L Potassium 3.1 L (3.5-5.1) mmol/L Chloride 99 (98-107) mmol/L Carbon Dioxide 29 (22-30) mmol/L Anion Gap 10.9 (5-15) MEQ/L BUN 5 L (7-17) mg/dL Creatinine 0.52 (0.52-1.04) mg/dL Estimated GFR 95.0 ML/MIN Glucose 98 (74-106) mg/dL Lactic Acid (0.4-2.0) Calcium 8.4 (8.4-10.2) mg/dL Magnesium 2.1 (1.6-2.3) mg/dL Total Bilirubin 0.60 (0.2-1.3) mg/dL AST 32 (14-36) U/L ALT 31 (0-35) U/L Alkaline Phosphatase 155 H (38-126) U/L Troponin I < 0.012 (0.000-0.033) ng/mL NT-Pro-B Natriuret Pep 2160 (<300) pg/mL Serum Total Protein 5.5 L (6.3-8.2) g/dL Albumin 2.7 L (3.5-5.0) g/dL 03/04/25 03/04/25 Range/Units 17:17 16:58 WBC 20.7 H (3.98-10.04) x10^3/uL RBC 3.62 L (3.93-5.22) x10^6/uL Hgb 11.0 L (11.2-15.7) g/dL Hct 33.9 L (34.1-44.9) % MCV 93.6 (79.4-94.8) fL MCH 30.4 (25.6-32.2) pg MCHC 32.4 (32.2-35.5) g/dL RDW 14.1 (11.7-14.4) % Plt Count 786 H (182-369) x10^3/uL MPV 9.2 L (9.4-12.3) fL Gran % 85.2 H (34.0-71.1) % Immature Gran % (Auto) 1.2 H (0.001-0.429) % Nucleat RBC Rel Count 0.0 (0.00-0.2) % Eos # (Auto) 0.09 (0.04-0.36) x10^3/uL Immature Gran # (Auto) 0.24 H (0.001-0.031) x10^3u/L Absolute Lymphs (auto) 1.11 L (1.18-3.74) x10^3/uL Absolute Monos (auto) 1.59 H (0.24-0.86) x10^3/uL Absolute Nucleated RBC 0.00 (0.00-0.012) x10^3u/L Lymphocytes % 5.4 L (19.3-51.7) % Monocytes % 7.7 (4.7-12.5) % Eosinophils % 0.4 L (0.7-5.8) % Basophils % 0.1 (0.1-1.2) % Absolute Granulocytes 17.68 H (1.56-6.13) x10^3/uL Basophils # 0.03 (0.01-0.08) x10^3/uL PT (9.4-12.5) SECONDS INR (0.8-3.0) Sodium (135-145) mmol/L Potassium (3.5-5.1) mmol/L Chloride (98-107) mmol/L Carbon Dioxide (22-30) mmol/L Anion Gap (5-15) MEQ/L BUN (7-17) mg/dL Creatinine (0.52-1.04) mg/dL Estimated GFR ML/MIN Glucose (74-106) mg/dL Lactic Acid 1.7 (0.4-2.0) Calcium (8.4-10.2) mg/dL Magnesium (1.6-2.3) mg/dL Total Bilirubin (0.2-1.3) mg/dL AST (14-36) U/L ALT (0-35) U/L Alkaline Phosphatase (38-126) U/L Troponin I (0.000-0.033) ng/mL NT-Pro-B Natriuret Pep (<300) pg/mL Serum Total Protein (6.3-8.2) g/dL Albumin (3.5-5.0) g/dL - Progress Progress: re-examined, unchanged Air Movement: good Progress Note: 03/04/25 18:04 My medical decision making and the assignment of moderate to high complexity of this patient's medical issue is based on review of the patient's past medical history, review of the patient's medication list, review of the patient drug allergy list, history of present illness and physical findings on examination. The workup in this patient includes placement of intravenous line, blood cultures, CBC, CMP, troponin level, twelve-lead EKG, BNP, chest x-ray. I also requested the medical records from [facility] for the admission 02/21/2025 to 02/27/2025. I reviewed those records. Differential diagnosis includes but is not limited to persistent left pleural effusion, persistent left-sided pneumonia, COVID-19 infection, hyponatremia, electrolyte abnormalities, anemia, arrhythmia 03/04/25 18:51 I interpreted the patient's laboratory data results. Based on laboratory data results, the patient has a leukocytosis of 20,000 which is significantly improved over the 55,000 from approximately 11 days ago. Patient has an elevated BNP of approximately 2100 compared to approximately 800 from 11 days ago. 03/04/25 18:52 Patient has potassium 3.1 which we provided her potassium supplementation with oral potassium 20 mEq x 1. Patient's sodium level is 136 which is normal and improved over 11 days ago. I interpreted the preliminary chest x-ray report and compared to the similar study dated 02/21/2025. Patient has persistent pleural effusion versus pulmonary infiltrate versus both conditions. I did speak with Dr. Lobo, our telehospitalist I reviewed the patient history, presenting complaint, workup results and discussed the events that have been going on with this patient medically over the last 11 days. He wanted to have a left lateral decubitus film performed to evaluate whether this is free-flowing fluid versus empyema. In addition he wanted a CT scan of the chest with contrast to evaluate for the same. 03/04/25 20:50 I interpreted the preliminary left lateral decubitus x-ray report on this patient. It does appear as though the fluid is leveling out and not confined into an abscess cavity. However, we will await the CT scan of the chest results. 03/04/25 21:[address] scan of the chest with contrast was interpreted by the radiologist and compared to prior CT scan of the chest with contrast dated 02/21/2025. There is no obvious pulmonary embolus. There is new moderate right and decreased left effusion/atelectasis. There is new bilateral patchy upper lobe airspace disease. There appears to not be an abscess cavity or phlegmon present based on the left lateral decubitus x-ray report interpreted by me and the CT scan of the chest with contrast report interpreted by the radiologist. I spoke with Dr. Jensen, the telehospitalist on at this time. I reviewed the follow-up studies with the prior telehospitalist wanted performed and interpreted. He accepts the patient to be placed in observation on a telemetry bed. Blood Culture(s) Obtained: Yes Antibiotics given: Yes Counseled pt/family regarding: lab results, diagnosis, rad results Medical Desision Making - Independent Historian Additional History obtained from: Family - Diagnostic Testing Diagnostic test were ordered, analyzed, and reviewed by me: Yes Radiological Interpretation: Interpreted by me, Reviewed by me, Teleradiologist Report - Risk of complications The pt has a high risk of morbidity or mortality based on: Decision regarding hospitilization or escalation of hosp level of care - Departure Departure Disposition: Observation Clinical Impression: Shortness of breath, COVID-19 virus infection, Bilateral pleural effusion, Bilateral pulmonary infiltrates on chest x-ray Condition: Fair Critical Care Time: No Referrals: AJITH BEE DO [Primary Care Provider, [facility]] - Follow up/PCP as directed
[2025-03-04 17:38] LABS: BASOPHIL % 0.1 % (0.1-1.2); Basophil (Absolute #) 0.03 x10^3/uL (0.01-0.08); Eosinophil (Absolute #) 0.09 x10^3/uL (0.04-0.36); Hematocrit 33.9 % (34.1-44.9); Hemoglobin 11.0 g/dL (11.2-15.7); IMMATURE GRAN # 0.24 x10^3u/L (0.001-0.031); IMMATURE GRAN % 1.2 % (0.001-0.429); Lymphocyte (Absolute #) 1.11 x10^3/uL (1.18-3.74); Mean Corpuscular Hemoglobin 30.4 pg (25.6-32.2); Mean Corpuscular Hgb Concent. 32.4 g/dL (32.2-35.5); Monocyte (Absolute #) 1.59 x10^3/uL (0.24-0.86); NUCLEATED RBC # 0.00 x10^3u/L (0.00-0.012); NUCLEATED RBC % 0.0 % (0.00-0.2); Platelet Count 786 x10^3/uL (182-369); Red Blood Count 3.62 x10^6/uL (3.93-5.22); White Blood Count 20.7 x10^3/uL (3.98-10.04)
[2025-03-04 17:52] LABS: INR 1.0 (0.8-3.0); PROTIME 11.2 SECONDS (9.4-12.5)
[2025-03-04 17:55] LABS: Calcium 8.4 mg/dL (8.4-10.2); Carbon Dioxide 29.0 mmol/L (22-30); Creatinine 1 0.52 mg/dL (0.52-1.04); EST GLOMERULAR FILTRATION RATE 95.0 ML/MIN; Glucose 98.0 mg/dL (74-106); Potassium 3.1 mmol/L (3.5-5.1); SGOT/AST 32.0 U/L (14-36); SGPT/ALT 31.0 U/L (0-35); Total Protein 5.5 g/dL (6.3-8.2)
[2025-03-04 18:06] LABS: NT PRO BNPII 2160 pg/mL (<300); TROPONIN < 0.012 ng/mL (0.000-0.033)
[2025-03-04] MEDS ORDERED: Klor Con ONE (18:36)
[2025-03-04] MEDS ORDERED: Lasix 40 MG/4 ML ONE (18:36)
[2025-03-04] MEDS ORDERED: PIPERACILLIN/TAZOBACTAM IV ONE ×2 (18:36→23:54)
[2025-03-04] MEDS: Lasix 40 MG/4 ML IV ONE (18:40)
[2025-03-04] MEDS: Klor Con PO ONE (18:41)
[2025-03-04 21:37] LABS: Slide Review 1 YES
[2025-03-04] MEDS ORDERED: DUONEB 0.5-3 MG/3 ml Neb IH PRN (21:59)
--- NOTE | 2025-03-04 22:10 | XRAY ---
Indication: Short of breath. Left pleural effusion. Multiple contiguous axial images obtained through the chest using 80 cc Isovue 370 contrast and PE protocol. Comparison: February 21, 2025 Good opacification pulmonary arteries however there is now diffuse respiration artifact limiting evaluation for pulmonary embolus. No obvious central pulmonary embolus. Heart is now borderline enlarged. Aorta again normal in course and caliber. No pathologic mediastinal/hilar lymphadenopathy. Stable moderate-sized hiatal hernia with partial intrathoracic stomach. Previous large left effusion/atelectasis has decreased with moderate residual still present. New moderate right effusion with minimal bibasilar compressive atelectasis. Both upper lobes demonstrates new peripheral patchy interstitial alveolar opacities. Bony thorax intact again with osteopenia and minimal/mild degenerative changes throughout spine. Limited upper abdomen demonstrates stable small right lobe hepatic cyst/hemangioma. Impression: 1. Diffuse respiration artifact limits pulmonary embolus evaluation. No obvious central pulmonary embolus. 2. New borderline cardiomegaly with new right and diminished left effusions/atelectasis. Rule out cardiac decompensation/CHF versus fluid overload. 3. New patchy bilateral upper lobe interstitial alveolar opacities. Rule out pneumonia/pneumonitis. 4. Again chronic findings including osteopenia, degenerative spondylosis, and hepatic cyst/hemangioma.
--- NOTE | 2025-03-04 22:18 | PCM.HP ---
History of Present Illness - Chief Complaint Chief Complaint: pleaural effusion Date: 03/04/25 History of Present Illness: is a 79 year old female who presents to the ED from PCP office for increased lower ext edema. She was seen in the ED here 02/21/15 and found to have a left pleural effusion and sodium of 122. She was admitted to [facility]. She did undergo drainage of pleural effusion. Pleural fluid culture did grow out strep. She was discharged on 03/03 and was to clindamycin for 7 days. She was also found to be COVID-19 positive and treated with Remdesivir. Hematology did see her for leukocytosis and was determined to be leukamoid reaction. Her daughter in law who is at bedside reports she has had increasing lower ext edema. She saw her PCP today and was sent to the ED. She was started on Eliquis for A Fib In [place]. In ED she was on 3L O2 and currently on 2L. CT in ED showed pleural effusion but no loculation or cavitary lesion. She was started on Zosyn in ED. She was also given 40mg IV Lasix and its scheduled 40mg IV BID. - Review of Systems Constitutional: No Fever, No Chills Eyes: No Symptoms Ears, Nose, & Throat: No Symptoms Respiratory: Short Of Breath, No Stridor, No Wheezing Cardiac: No Symptoms, Edema, No Chest Pain Abdominal/Gastrointestinal: No Symptoms Genitourinary Symptoms: No Symptoms Musculoskeletal: No Symptoms Skin: No Symptoms Neurological: No Symptoms Psychological: No Symptoms Endocrine: No Symptoms Hematologic/Lymphatic: No Symptoms Immunological/Allergic: No Symptoms Medications & Allergies Home Medications: Home Medication List Calcium Carbonate/Vitamin D3 [Calcium 250-D Tablet] 1,000 mg PO DAILY 10/11/20 [History Confirmed 03/04/25] Amiodarone HCl 200 mg [Cordarone 200 MG] 200 mg PO DAILY 03/04/25 [History Confirmed 03/04/25] Apixaban [Eliquis] 5 mg PO BID 03/04/25 [History Confirmed 03/04/25] Cholecalciferol (Vitamin D3) [Vitamin D3] 1 cap PO DAILY 03/04/25 [History Confirmed 03/04/25] clindamycin HCL [Clindamycin HCl] 300 mg PO TID 03/04/25 [History Confirmed 03/04/25] Allergies/Adverse Reactions: Allergies Allergy/AdvReac Type Severity Reaction Status Date / Time No Known Drug Allergies Allergy Verified 03/04/25 16:41 - Past Medical History Past Medical History: Yes Neurological History: No Pertinent History ENT History: No Pertinent History Cardiac History: No Pertinent History Respiratory History: No Pertinent History Endocrine Medical History: No Pertinent History Musculoskelatal History: No Pertinent History GI Medical History: GERD Pyscho-Social History: No Pertinent History Reproductive Disorders: No Pertinent History Comment: prolapsed bladder - Past Surgical History Past Surgical History: Yes Neuro Surgical History: No Pertinent History Cardiac History: No Pertinent History Respiratory Surgery: No Pertinent History GI Surgical History: Appendectomy Genitourinary Surgical Hx: No Pertinent History Musculskeletal Surgical Hx: No Pertinent History Female Surgical History: Hysterectomy Other Surgical History: removal of cyst from ovary - Social History Smoking Status: Never smoker Exposure to second hand smoke: Yes Alcohol: None Drug Use: none - Social Determinants of Health Will the patient participate in the screening: Declined to provide Do you worry about a steady place to live?: No Do you have any problems with any of the following?: No known problems In the past 12 months,have you had to go without utilities?: No Have you or anyone in your house had to go without enough: No Transportation Issues: No Has anyone in your support network made you feel unsafe?: No - Physical Exam Vital Signs: Vital Signs - 24 hr Temp Pulse Resp BP BP Pulse Ox 03/04/25 21:00 69 20 151/60 99 03/04/25 20:34 70 20 155/57 99 03/04/25 20:00 74 31 H 160/68 97 03/04/25 19:34 104 H 27 H 172/65 97 03/04/25 18:30 73 22 160/78 97 03/04/25 18:00 74 19 167/60 98 03/04/25 17:30 73 25 H 158/60 99 03/04/25 17:00 70 21 151/59 98 03/04/25 16:58 98 03/04/25 16:28 96.9 F 75 25 H 170/89 97 General Appearance: no apparent distress, alert Neurologic Exam: alert, oriented x 3 Eye Exam: PERRL/EOMI, pale conjunctivae Neck Exam: normal inspection, supple Respiratory Exam: diminished breath sounds, No rhonchi, No wheezing Cardiovascular Exam: normal heart sounds, irregular, edema Gastrointestinal/Abdomen Exam: soft, normal bowel sounds, tenderness Extremity Exam: normal inspection, normal range of motion Skin Exam: normal color, warm, dry Results - Labs Lab/Micro Results: Lab Results-Last 24 Hours 03/04/25 03/04/25 03/04/25 Range/Units 16:58 17:17 17:17 WBC 20.7 H (3.98-10.04) x10^3/uL RBC 3.62 L (3.93-5.22) x10^6/uL Hgb 11.0 L (11.2-15.7) g/dL Hct 33.9 L (34.1-44.9) % MCV 93.6 (79.4-94.8) fL MCH 30.4 (25.6-32.2) pg MCHC 32.4 (32.2-35.5) g/dL RDW 14.1 (11.7-14.4) % Plt Count 786 H (182-369) x10^3/uL MPV 9.2 L (9.4-12.3) fL Gran % 85.2 H (34.0-71.1) % Immature Gran % (Auto) 1.2 H (0.001-0.429) % Nucleat RBC Rel Count 0.0 (0.00-0.2) % Eos # (Auto) 0.09 (0.04-0.36) x10^3/uL Immature Gran # (Auto) 0.24 H (0.001-0.031) x10^3u/L Absolute Lymphs (auto) 1.11 L (1.18-3.74) x10^3/uL Absolute Monos (auto) 1.59 H (0.24-0.86) x10^3/uL Absolute Nucleated RBC 0.00 (0.00-0.012) x10^3u/L Lymphocytes % 5.4 L (19.3-51.7) % Monocytes % 7.7 (4.7-12.5) % Eosinophils % 0.4 L (0.7-5.8) % Basophils % 0.1 (0.1-1.2) % Absolute Granulocytes 17.68 H (1.56-6.13) x10^3/uL Basophils # 0.03 (0.01-0.08) x10^3/uL PT (9.4-12.5) SECONDS INR (0.8-3.0) Sodium 136 (135-145) mmol/L Potassium 3.1 L (3.5-5.1) mmol/L Chloride 99 (98-107) mmol/L Carbon Dioxide 29 (22-30) mmol/L Anion Gap 10.9 (5-15) MEQ/L BUN 5 L (7-17) mg/dL Creatinine 0.52 (0.52-1.04) mg/dL Estimated GFR 95.0 ML/MIN Glucose 98 (74-106) mg/dL Lactic Acid 1.7 (0.4-2.0) Calcium 8.4 (8.4-10.2) mg/dL Magnesium 2.1 (1.6-2.3) mg/dL Total Bilirubin 0.60 (0.2-1.3) mg/dL AST 32 (14-36) U/L ALT 31 (0-35) U/L Alkaline Phosphatase 155 H (38-126) U/L Troponin I (0.000-0.033) ng/mL NT-Pro-B Natriuret Pep (<300) pg/mL Serum Total Protein 5.5 L (6.3-8.2) g/dL Albumin 2.7 L (3.5-5.0) g/dL Slides for Path Review YES 03/04/25 03/04/25 03/04/25 Range/Units 17:17 17:17 21:15 WBC (3.98-10.04) x10^3/uL RBC (3.93-5.22) x10^6/uL Hgb (11.2-15.7) g/dL Hct (34.1-44.9) % MCV (79.4-94.8) fL MCH (25.6-32.2) pg MCHC (32.2-35.5) g/dL RDW (11.7-14.4) % Plt Count (182-369) x10^3/uL MPV (9.4-12.3) fL Gran % (34.0-71.1) % Immature Gran % (Auto) (0.001-0.429) % Nucleat RBC Rel Count (0.00-0.2) % Eos # (Auto) (0.04-0.36) x10^3/uL Immature Gran # (Auto) (0.001-0.031) x10^3u/L Absolute Lymphs (auto) (1.18-3.74) x10^3/uL Absolute Monos (auto) (0.24-0.86) x10^3/uL Absolute Nucleated RBC (0.00-0.012) x10^3u/L Lymphocytes % (19.3-51.7) % Monocytes % (4.7-12.5) % Eosinophils % (0.7-5.8) % Basophils % (0.1-1.2) % Absolute Granulocytes (1.56-6.13) x10^3/uL Basophils # (0.01-0.08) x10^3/uL PT 11.2 (9.4-12.5) SECONDS INR 1.00 (0.8-3.0) Sodium (135-145) mmol/L Potassium (3.5-5.1) mmol/L Chloride (98-107) mmol/L Carbon Dioxide (22-30) mmol/L Anion Gap (5-15) MEQ/L BUN (7-17) mg/dL Creatinine (0.52-1.04) mg/dL Estimated GFR ML/MIN Glucose (74-106) mg/dL Lactic Acid (0.4-2.0) Calcium (8.4-10.2) mg/dL Magnesium (1.6-2.3) mg/dL Total Bilirubin (0.2-1.3) mg/dL AST (14-36) U/L ALT (0-35) U/L Alkaline Phosphatase (38-126) U/L Troponin I < 0.012 < 0.012 (0.000-0.033) ng/mL NT-Pro-B Natriuret Pep 2160 (<300) pg/mL Serum Total Protein (6.3-8.2) g/dL Albumin (3.5-5.0) g/dL Slides for Path Review - Radiology Impressions Radiology Exams & Impressions: Radiology Procedures Category Date Time Status CHEST 1 VIEW (PORTABLE) Stat Exams 03/04/25 16:58 Taken CHEST 1 VIEW (PORTABLE) Stat Exams 03/04/25 18:33 Taken CHEST WITH CONTRAST [CT] Stat Exams 03/04/25 18:34 Taken - Other Procedures and Tests Respiratory Therapy 03/04/25 21:32 EKG REPEAT IN AM Oxygen Nasal Cannula 3 lpm Respiratory Therapy Consult ONCE Assessment/Plan (1) Bilateral pleural effusion Current Visit: Yes Status: Acute Assessment & Plan: CT chest does not show loculated fluid Continue Lasix 40mg IV BID. Monitor renal function Pleural fluid was drained previoulsy in [place] Code(s): J90 - PLEURAL EFFUSION, NOT ELSEWHERE CLASSIFIED (2) COVID-19 virus infection Current Visit: Yes Status: Acute Assessment & Plan: Previously treated with Remdesivir and steroids Continue oxygen via MD Code(s): U07.1 - COVID-19 (3) Bandemia Current Visit: No Status: Acute Assessment & Plan: She was previously seen by hematology and determined to have leukamoid reaction Code(s): D72.825 - BANDEMIA (4) Bilateral pulmonary infiltrates on chest x-ray Current Visit: Yes Status: Acute Assessment & Plan: Blood cultures drawn Continue IV Zosyn and monitor clinic progress Code(s): R91.8 - OTHER NONSPECIFIC ABNORMAL FINDING OF LUNG FIELD (5) A-fib Current Visit: Yes Status: Acute Assessment & Plan: Monitor on Telemetry. Rate controlled Continue Amiodarone and Eliquis Code(s): I48.91 - UNSPECIFIED ATRIAL FIBRILLATION Telemedicine Encounter - Telemedicine Encounter Telemedicine Encounter: "The entirety of this encounter was performed via Telemedicine" This visit was performed using real-time audio and video connection between my location and thepatients locationwith the assistance of a surrogateat the patients location. Written or verbal consent was obtained from the patient/guardian to perform this visit [email or web address] technology. Any patient questions regarding the telemedicine interaction were answered.
[2025-03-04] MEDS: Lasix 40 MG/4 ML IV SCH (22:46)
[2025-03-05] MEDS: ELIQUIS 2.5 MG TABLET PO SCH ×2 (00:08→09:37)
[2025-03-05 03:03] LABS: BASOPHIL % 0.1 % (0.1-1.2); Basophil (Absolute #) 0.01 x10^3/uL (0.01-0.08); Eosinophil (Absolute #) 0.09 x10^3/uL (0.04-0.36); Hematocrit 28.6 % (34.1-44.9); Hemoglobin 9.4 g/dL (11.2-15.7); IMMATURE GRAN # 0.18 x10^3u/L (0.001-0.031); IMMATURE GRAN % 1.1 % (0.001-0.429); Lymphocyte (Absolute #) 0.88 x10^3/uL (1.18-3.74); Mean Corpuscular Hemoglobin 30.8 pg (25.6-32.2); Mean Corpuscular Hgb Concent. 32.9 g/dL (32.2-35.5); Monocyte (Absolute #) 1.59 x10^3/uL (0.24-0.86); NUCLEATED RBC # 0.00 x10^3u/L (0.00-0.012); NUCLEATED RBC % 0.0 % (0.00-0.2); Platelet Count 663 x10^3/uL (182-369); Red Blood Count 3.05 x10^6/uL (3.93-5.22); White Blood Count 17.1 x10^3/uL (3.98-10.04)
[2025-03-05 03:32] LABS: Calcium 7.5 mg/dL (8.4-10.2); Carbon Dioxide 27.0 mmol/L (22-30); Creatinine 1 0.54 mg/dL (0.52-1.04); EST GLOMERULAR FILTRATION RATE 94.2 ML/MIN; Glucose 90.0 mg/dL (74-106); NT PRO BNPII 1750.0 pg/mL (<300); Potassium 3.3 mmol/L (3.5-5.1); SGOT/AST 29.0 U/L (14-36); SGPT/ALT 24.0 U/L (0-35); Total Protein 4.8 g/dL (6.3-8.2)
[2025-03-05] MEDS ORDERED: PIPERACILLIN/TAZOBACTAM IV ONE (05:13)
[2025-03-05] MEDS: Lasix 40 MG/4 ML IV SCH ×2 (05:30→16:49)
[2025-03-05] MEDS: TYLENOL 325 MG PO PRN (07:24)
[2025-03-05] MEDS: K-LYTE PO SCH (08:22)
--- NOTE | 2025-03-05 09:36 | XRAY ---
Indication: Short of breath. Comparison: February 21, 2025 Portable chest demonstrates mild clearing previous large left lung infiltrate/atelectasis/effusion. New subtle peripheral right upper lobe ground-glass opacity. Heart not enlarged.
[2025-03-05] MEDS: Cordarone 200 MG PO SCH (09:38)
--- NOTE | 2025-03-05 09:38 | XRAY ---
Indication: Pleural effusion. Comparison: None Right lateral decubitus chest radiograph now demonstrates layering left and right pleural effusions. Grossly stable left mid to lower lung infiltrate/atelectasis. Heart now appears borderline enlarged.
[2025-03-05] MEDS: Pepcid 20 MG PO SCH (09:39)
[2025-03-05] MEDS: VITAMIN D PO SCH (09:39)
[2025-03-05] MEDS: solu-MEDROL 40 MG, Sterile H2O 10 ml 1 ML IV SCH (09:40)
[2025-03-05] MEDS: Calcium 500MG W/Vit D Tablet PO SCH (09:45)
[2025-03-05] MEDS ORDERED: NON-FORMULARY ITEM (Cholecalciferol (Vitamin D3) [Vitamin D3] 1,250 MCG Capsule) PO SCH (10:00)
[2025-03-05] MEDS ORDERED: NON-FORMULARY ITEM (Calcium Carbonate/Vitamin D3 [Calcium 250-D Tablet] 1 EACH Tablet) PO SCH (10:00)
[2025-03-05] MEDS ORDERED: NON-FORMULARY ITEM (Apixaban [Eliquis] 5 MG Tablet) PO SCH (10:00)
[2025-03-05] MEDS: Zofran 4 MG/2 ML VIAL IV PRN (10:22)
--- NOTE | 2025-03-05 10:58 | PCM.NOTE ---
Date and Time: 03/05/25 1044 Subjective Assessment: is a The patient is a 79-year-old female who presented to the emergency department on 03/04/25 from her primary care providers office due to worsening lower?extremity edema. She was previously evaluated in this ED on 02/21/25 and found to have a left pleural effusion and hyponatremia (Na 122), after which she was transferred to [facility]. There, she underwent thoracentesis, and pleural fluid cultures grew Streptococcus species. She was discharged on 03/03 with a 7-day course of clindamycin. During that hospitalization, she was also diagnosed with COVID-19 and treated with Remdesivir. Hematology evaluated her leukocytosis and determined it to be a leukemoid reaction. Her tjaiznlo-so-adn reports progressive lower-extremity edema since discharge. She was recently started on Eliquis for atrial fibrillation. In the ED, she required 3 L of oxygen, now reduced to 2 L, and CT imaging showed a pleural effusion without loculation or cavitary lesion. She was started on Zosyn and given 40 mg IV Lasix, now scheduled at 40 mg IV twice daily. On 03/05, the patient was resting in a chair and continued to have severe, pitting bilateral lower-extremity edema extending from the thighs to the feet. A CT abdomen/pelvis with and without contrast was ordered for further evaluation, and a bilateral lower-extremity venous duplex is planned for Friday. Her WBC count improved to 17.1, and potassium was 3.3 and replaced. She remains on her baseline 2 L oxygen with saturations of 97%. Zosyn is continued for bilateral upper-lobe pneumonia. Imaging suggests bilateral lower-lobe effusions, and thoracentesis may be considered Friday if clinically indicated. She reports intermittent left-sided chest discomfort at the prior chest tube site. Records and echocardiogram results from [facility] are being obtained for review. A sputum sample is pending. She denies additional concerns, and Xopenex and Solu-Medrol are being continued. - Review of Systems Constitutional: Weakness, No Fever, No Chills Eyes: No Symptoms Ears, Nose, & Throat: No Symptoms Respiratory: Short Of Breath, No Cough Cardiac: Edema (BLLE), No Chest Pain, No Syncope Abdominal/Gastrointestinal: No Abdominal Pain, No Nausea, No Vomiting, No Diarrhea Genitourinary Symptoms: No Dysuria Musculoskeletal: No Back Pain, No Neck Pain Skin: No Rash Neurological: No Dizziness, No Focal Weakness, No Sensory Changes Psychological: No Symptoms Endocrine: No Symptoms Hematologic/Lymphatic: No Symptoms Immunological/Allergic: No Symptoms Objective Exam General Appearance: no apparent distress, alert Neurologic Exam: alert, oriented x 3, cooperative, normal mood/affect, nml cerebellar function, sensation nml, motor weakness, No motor deficits Skin Exam: normal color, warm, dry Eye Exam: PERRL, EOMI, eyes nml inspection Ears, Nose, Throat Exam: normal ENT inspection, pharynx normal, moist mucous membranes Neck Exam: normal inspection, non-tender, supple, full range of motion Respiratory Exam: normal breath sounds, lungs clear, No respiratory distress Cardiovascular Exam: normal heart sounds, normal peripheral pulses, irregular, edema (+ 3 pitting BLLE) Gastrointestinal/Abdomen Exam: soft, No tenderness, No mass Extremity Exam: normal inspection, normal range of motion Back Exam: normal inspection, normal range of motion, No CVA tenderness, No vertebral tenderness Pelvic Exam: deferred Rectal Exam: deferred Objective Data Vital Signs: Vital Signs - 24 hr Temp Pulse Resp BP BP Pulse Ox 03/05/25 07:23 98.0 F 81 16 124/57 97 03/05/25 07:20 80 16 95 03/05/25 04:00 97.9 F 80 18 138/64 96 03/05/25 00:00 98.2 F 81 18 148/66 97 03/04/25 22:46 79 16 94 L 03/04/25 22:44 97.9 F 79 17 176/75 98 03/04/25 22:04 97.9 F 79 17 176/75 98 03/04/25 22:03 97.9 F 79 18 176/75 98 03/04/25 21:00 69 20 151/60 99 03/04/25 20:34 70 20 155/57 99 03/04/25 20:00 74 31 H 160/68 97 03/04/25 19:34 104 H 27 H 172/65 97 03/04/25 18:30 73 22 160/78 97 03/04/25 18:00 74 19 167/60 98 03/04/25 17:30 73 25 H 158/60 99 03/04/25 17:00 70 21 151/59 98 03/04/25 16:58 98 03/04/25 16:28 96.9 F 75 25 H 170/89 97 Pain Assessment - Last Documented Pain Intensity 2 Pain Scale Used 0-10 Pain Scale Intake and Output: Intake & Output 03/02/25 03/03/25 03/04/25 03/05/25 11:59 11:59 11:59 11:59 Intake Total 1180 Output Total 2300 Balance -1120 Weight 61.3 kg Lab Results: Lab Results-Last 24 Hours 03/04/25 03/04/25 03/04/25 Range/Units 16:58 17:17 17:17 WBC 20.7 H (3.98-10.04) x10^3/uL RBC 3.62 L (3.93-5.22) x10^6/uL Hgb 11.0 L (11.2-15.7) g/dL Hct 33.9 L (34.1-44.9) % MCV 93.6 (79.4-94.8) fL MCH 30.4 (25.6-32.2) pg MCHC 32.4 (32.2-35.5) g/dL RDW 14.1 (11.7-14.4) % Plt Count 786 H (182-369) x10^3/uL MPV 9.2 L (9.4-12.3) fL Gran % 85.2 H (34.0-71.1) % Immature Gran % (Auto) 1.2 H (0.001-0.429) % Nucleat RBC Rel Count 0.0 (0.00-0.2) % Eos # (Auto) 0.09 (0.04-0.36) x10^3/uL Immature Gran # (Auto) 0.24 H (0.001-0.031) x10^3u/L Absolute Lymphs (auto) 1.11 L (1.18-3.74) x10^3/uL Absolute Monos (auto) 1.59 H (0.24-0.86) x10^3/uL Absolute Nucleated RBC 0.00 (0.00-0.012) x10^3u/L Lymphocytes % 5.4 L (19.3-51.7) % Monocytes % 7.7 (4.7-12.5) % Eosinophils % 0.4 L (0.7-5.8) % Basophils % 0.1 (0.1-1.2) % Absolute Granulocytes 17.68 H (1.56-6.13) x10^3/uL Basophils # 0.03 (0.01-0.08) x10^3/uL PT (9.4-12.5) SECONDS INR (0.8-3.0) Sodium 136 (135-145) mmol/L Potassium 3.1 L (3.5-5.1) mmol/L Chloride 99 (98-107) mmol/L Carbon Dioxide 29 (22-30) mmol/L Anion Gap 10.9 (5-15) MEQ/L BUN 5 L (7-17) mg/dL Creatinine 0.52 (0.52-1.04) mg/dL Estimated GFR 95.0 ML/MIN Glucose 98 (74-106) mg/dL Lactic Acid 1.7 (0.4-2.0) Calcium 8.4 (8.4-10.2) mg/dL Magnesium 2.1 (1.6-2.3) mg/dL Total Bilirubin 0.60 (0.2-1.3) mg/dL AST 32 (14-36) U/L ALT 31 (0-35) U/L Alkaline Phosphatase 155 H (38-126) U/L Troponin I (0.000-0.033) ng/mL NT-Pro-B Natriuret Pep (<300) pg/mL Serum Total Protein 5.5 L (6.3-8.2) g/dL Albumin 2.7 L (3.5-5.0) g/dL Slides for Path Review YES 03/04/25 03/04/25 03/04/25 Range/Units 17:17 17:17 21:15 WBC (3.98-10.04) x10^3/uL RBC (3.93-5.22) x10^6/uL Hgb (11.2-15.7) g/dL Hct (34.1-44.9) % MCV (79.4-94.8) fL MCH (25.6-32.2) pg MCHC (32.2-35.5) g/dL RDW (11.7-14.4) % Plt Count (182-369) x10^3/uL MPV (9.4-12.3) fL Gran % (34.0-71.1) % Immature Gran % (Auto) (0.001-0.429) % Nucleat RBC Rel Count (0.00-0.2) % Eos # (Auto) (0.04-0.36) x10^3/uL Immature Gran # (Auto) (0.001-0.031) x10^3u/L Absolute Lymphs (auto) (1.18-3.74) x10^3/uL Absolute Monos (auto) (0.24-0.86) x10^3/uL Absolute Nucleated RBC (0.00-0.012) x10^3u/L Lymphocytes % (19.3-51.7) % Monocytes % (4.7-12.5) % Eosinophils % (0.7-5.8) % Basophils % (0.1-1.2) % Absolute Granulocytes (1.56-6.13) x10^3/uL Basophils # (0.01-0.08) x10^3/uL PT 11.2 (9.4-12.5) SECONDS INR 1.00 (0.8-3.0) Sodium (135-145) mmol/L Potassium (3.5-5.1) mmol/L Chloride (98-107) mmol/L Carbon Dioxide (22-30) mmol/L Anion Gap (5-15) MEQ/L BUN (7-17) mg/dL Creatinine (0.52-1.04) mg/dL Estimated GFR ML/MIN Glucose (74-106) mg/dL Lactic Acid (0.4-2.0) Calcium (8.4-10.2) mg/dL Magnesium (1.6-2.3) mg/dL Total Bilirubin (0.2-1.3) mg/dL AST (14-36) U/L ALT (0-35) U/L Alkaline Phosphatase (38-126) U/L Troponin I < 0.012 < 0.012 (0.000-0.033) ng/mL NT-Pro-B Natriuret Pep 2160 (<300) pg/mL Serum Total Protein (6.3-8.2) g/dL Albumin (3.5-5.0) g/dL Slides for Path Review 03/05/25 03/05/25 03/05/25 Range/Units 03:00 03:00 03:00 WBC 17.1 H (3.98-10.04) x10^3/uL RBC 3.05 L (3.93-5.22) x10^6/uL Hgb 9.4 L (11.2-15.7) g/dL Hct 28.6 L (34.1-44.9) % MCV 93.8 (79.4-94.8) fL MCH 30.8 (25.6-32.2) pg MCHC 32.9 (32.2-35.5) g/dL RDW 13.7 (11.7-14.4) % Plt Count 663 H (182-369) x10^3/uL MPV 9.1 L (9.4-12.3) fL Gran % 83.9 H (34.0-71.1) % Immature Gran % (Auto) 1.1 H (0.001-0.429) % Nucleat RBC Rel Count 0.0 (0.00-0.2) % Eos # (Auto) 0.09 (0.04-0.36) x10^3/uL Immature Gran # (Auto) 0.18 H (0.001-0.031) x10^3u/L Absolute Lymphs (auto) 0.88 L (1.18-3.74) x10^3/uL Absolute Monos (auto) 1.59 H (0.24-0.86) x10^3/uL Absolute Nucleated RBC 0.00 (0.00-0.012) x10^3u/L Lymphocytes % 5.1 L (19.3-51.7) % Monocytes % 9.3 (4.7-12.5) % Eosinophils % 0.5 L (0.7-5.8) % Basophils % 0.1 (0.1-1.2) % Absolute Granulocytes 14.35 H (1.56-6.13) x10^3/uL Basophils # 0.01 (0.01-0.08) x10^3/uL PT (9.4-12.5) SECONDS INR (0.8-3.0) Sodium 134 L (135-145) mmol/L Potassium 3.3 L (3.5-5.1) mmol/L Chloride 101 (98-107) mmol/L Carbon Dioxide 27 (22-30) mmol/L Anion Gap 9.6 (5-15) MEQ/L BUN 8 (7-17) mg/dL Creatinine 0.54 (0.52-1.04) mg/dL Estimated GFR 94.2 ML/MIN Glucose 90 (74-106) mg/dL Lactic Acid (0.4-2.0) Calcium 7.5 L (8.4-10.2) mg/dL Magnesium (1.6-2.3) mg/dL Total Bilirubin 0.70 (0.2-1.3) mg/dL AST 29 (14-36) U/L ALT 24 (0-35) U/L Alkaline Phosphatase 120 (38-126) U/L Troponin I < 0.012 (0.000-0.033) ng/mL NT-Pro-B Natriuret Pep 1750 (<300) pg/mL Serum Total Protein 4.8 L (6.3-8.2) g/dL Albumin 2.3 L (3.5-5.0) g/dL Slides for Path Review 03/05/25 Range/Units 03:00 WBC (3.98-10.04) x10^3/uL RBC (3.93-5.22) x10^6/uL Hgb (11.2-15.7) g/dL Hct (34.1-44.9) % MCV (79.4-94.8) fL MCH (25.6-32.2) pg MCHC (32.2-35.5) g/dL RDW (11.7-14.4) % Plt Count (182-369) x10^3/uL MPV (9.4-12.3) fL Gran % (34.0-71.1) % Immature Gran % (Auto) (0.001-0.429) % Nucleat RBC Rel Count (0.00-0.2) % Eos # (Auto) (0.04-0.36) x10^3/uL Immature Gran # (Auto) (0.001-0.031) x10^3u/L Absolute Lymphs (auto) (1.18-3.74) x10^3/uL Absolute Monos (auto) (0.24-0.86) x10^3/uL Absolute Nucleated RBC (0.00-0.012) x10^3u/L Lymphocytes % (19.3-51.7) % Monocytes % (4.7-12.5) % Eosinophils % (0.7-5.8) % Basophils % (0.1-1.2) % Absolute Granulocytes (1.56-6.13) x10^3/uL Basophils # (0.01-0.08) x10^3/uL PT (9.4-12.5) SECONDS INR (0.8-3.0) Sodium (135-145) mmol/L Potassium (3.5-5.1) mmol/L Chloride (98-107) mmol/L Carbon Dioxide (22-30) mmol/L Anion Gap (5-15) MEQ/L BUN (7-17) mg/dL Creatinine (0.52-1.04) mg/dL Estimated GFR ML/MIN Glucose (74-106) mg/dL Lactic Acid (0.4-2.0) Calcium (8.4-10.2) mg/dL Magnesium 2.0 (1.6-2.3) mg/dL Total Bilirubin (0.2-1.3) mg/dL AST (14-36) U/L ALT (0-35) U/L Alkaline Phosphatase (38-126) U/L Troponin I (0.000-0.033) ng/mL NT-Pro-B Natriuret Pep (<300) pg/mL Serum Total Protein (6.3-8.2) g/dL Albumin (3.5-5.0) g/dL Slides for Path Review Radiology Exams: Radiology Procedures Category Date Time Status ABDOMEN AND PELVIS W&WO CONTRA [CT] Routine Exams 03/05/25 10:43 Ordered CHEST 1 VIEW (PORTABLE) Stat Exams 03/04/25 16:58 Completed CHEST 1 VIEW (PORTABLE) Stat Exams 03/04/25 18:33 Completed CHEST WITH CONTRAST [CT] Stat Exams 03/04/25 18:34 Completed Medications: Medications Generic Name Dose Route Start Last Admin Trade Name Freq PRN Reason Stop Dose Admin Acetaminophen 650 mg 03/04/25 21:32 03/05/25 07:24 Acetaminophen 325 Mg Tablet PO 04/03/25 21:31 650 mg Q4H PRN PRN Administration PAIN, FEVER, HEADACHE Amiodarone HCl 200 mg 03/05/25 10:00 03/05/25 09:38 Amiodarone Hcl 200 Mg Tab PO 04/04/25 09:59 200 mg DAILY CRISTOFER Administration Apixaban 5 mg 03/05/25 10:00 03/05/25 09:37 Apixaban 2.5 Mg Tablet PO 04/04/25 09:59 5 mg BID CRISTOFER Administration Calcium Carbonate 2 tab 03/05/25 10:00 03/05/25 09:45 Calcium Carbonate 500 Mg/Vitamin D 1 Tab Tablet PO 04/04/25 09:59 Not Given DAILY CRISTOFER Cholecalciferol 2,000 unit 03/05/25 10:00 03/05/25 09:39 Cholecalciferol (Vitamin D3) 1000 Unit Tablet PO 04/04/25 09:59 2,000 unit DAILY CRISTOFER Administration Methylprednisolone Sodium 0 mg 03/05/25 10:00 03/05/25 09:40 Succinate 40 mg/ Sterile Water IV 04/04/25 09:59 40 mg 1 ml Q12HT CRISTOFER Administration Famotidine 20 mg 03/05/25 10:00 03/05/25 09:39 Famotidine 20 Mg Tablet PO 04/04/25 09:59 20 mg BID CRISTOFER Administration Furosemide 40 mg 03/05/25 17:00 Furosemide 40 Mg/4 Ml Vial IV 04/04/25 16:59 BID DIURETIC CRISTOFER Piperacillin Sod/Tazobactam 100 mls @ 200 mls/hr 03/05/25 00:00 03/05/25 05:31 Sod 3.375 gm/ Sodium Chloride IV 03/08/25 00:00 200 mls/hr Q6HT CRISTOFER Administration Levalbuterol HCl 1.25 mg 03/05/25 13:00 Levalbuterol Hcl 1.25 Mg/0.5 Ml Neb IH 04/04/25 12:59 Q6HRT CRISTOFER Ondansetron HCl 4 mg 03/04/25 21:32 03/05/25 10:22 Ondansetron Hcl 4 Mg/2 Ml Vial IV 04/03/25 21:31 4 mg Q6H PRN PRN Administration NAUSEA/VOMITING Potassium Bicarbonate 25 meq 03/05/25 07:45 03/05/25 09:37 Potassium Bicarbonate 25 Meq Tab PO 03/05/25 11:46 25 meq Q2H CRISTOFER Administration Discontinued Medications Generic Name Dose Route Start Last Admin Trade Name Freq PRN Reason Stop Dose Admin Albuterol/Ipratropium 3 ml 03/04/25 21:59 Ipratropium/Albuterol Sulfate 3 Ml Ampul.Neb IH 04/03/25 21:58 Q4HPRN PRN SHORTNESS OF BREATH/WHEEZING Apixaban 5 mg 03/04/25 22:00 03/05/25 00:08 Apixaban 2.5 Mg Tablet PO 04/03/25 21:59 5 mg BID CRISTOFER Administration Furosemide 40 mg 03/04/25 18:14 03/04/25 18:40 Furosemide 40 Mg/4 Ml Vial IV 03/04/25 18:15 40 mg STAT ONE Administration Furosemide Confirm 03/04/25 18:36 Furosemide 40 Mg/4 Ml Vial Administered 03/04/25 18:37 Dose 40 mg .ROUTE .STK-MED ONE Furosemide 40 mg 03/04/25 21:32 03/04/25 22:46 Furosemide 40 Mg/4 Ml Vial IV 04/03/25 21:31 Not Given Q12H CRISTOFER Furosemide 40 mg 03/05/25 06:00 03/05/25 05:30 Furosemide 40 Mg/4 Ml Vial IV 04/04/25 05:59 40 mg Q12H CRISTOFER Administration Piperacillin Sod/Tazobactam 100 mls @ 200 mls/hr 03/04/25 18:14 03/04/25 19:09 Sod 3.375 gm/ Sodium Chloride IV 03/04/25 18:43 Infused STAT STA Infusion Sodium Chloride 500 mls @ 100 mls/hr 03/04/25 18:45 03/04/25 21:33 Sodium Chloride 0.9% 500 Ml IV 04/03/25 18:44 0 mls/hr .Q5H CRISTOFER Infusion Sodium Chloride Confirm 03/04/25 18:36 Sodium Chloride 0.9% Administered 03/04/25 18:37 Dose 100 mls @ ud .ROUTE .STK-MED ONE Sodium Chloride Confirm 03/04/25 18:36 Sodium Chloride 0.9% 500 Ml Administered 03/04/25 18:37 Dose 500 mls @ ud IV .STK-MED ONE Sodium Chloride 1,000 mls @ 50 mls/hr 03/04/25 21:32 03/04/25 22:47 Sodium Chloride 0.9% 1000 Ml IV 04/03/25 21:31 Not Given .Q20H CRISTOFER Sodium Chloride Confirm 03/04/25 23:55 Sodium Chloride 0.9% Administered 03/04/25 23:56 Dose 100 mls @ ud .ROUTE .STK-MED ONE Sodium Chloride Confirm 03/05/25 05:13 Sodium Chloride 0.9% Administered 03/05/25 05:14 Dose 100 mls @ ud .ROUTE .STK-MED ONE Piperacillin Sod/Tazobactam Sod Confirm 03/04/25 18:36 Piperacillin/Tazobactam Sodium 3.375 Gm Vial Administered 03/04/25 18:37 Dose 3.375 gm IV .STK-MED ONE Piperacillin Sod/Tazobactam Sod Confirm 03/04/25 23:54 Piperacillin/Tazobactam Sodium 3.375 Gm Vial Administered 03/04/25 23:55 Dose 3.375 gm IV .STK-MED ONE Piperacillin Sod/Tazobactam Sod Confirm 03/05/25 05:13 Piperacillin/Tazobactam Sodium 3.375 Gm Vial Administered 03/05/25 05:14 Dose 3.375 gm IV .STK-MED ONE Potassium Chloride 20 meq 03/04/25 18:10 03/04/25 18:41 Potassium Chloride Tab 10 Meq Tab PO 03/04/25 18:11 20 meq STAT ONE Administration Potassium Chloride Confirm 03/04/25 18:36 Potassium Chloride Tab 10 Meq Tab Administered 03/04/25 18:37 Dose 20 meq .ROUTE .STK-MED ONE Assessment/Plan (1) Pneumonia due to COVID-19 virus Current Visit: Yes Status: Acute Assessment & Plan: - Recent dx of COVID 3 weeks ago. - Zosyn IV - Solumedrol, Xoponex - CBC, CMP reviewed - Obtain medical records from [facility] - On baseline 2lNC - CT chest: 1. Diffuse respiration artifact limits pulmonary embolus evaluation. No obvious central pulmonary embolus. 2. New borderline cardiomegaly with new right and diminished left effusions/atelectasis. Rule out cardiac decompensation/CHF versus fluid overload. 3. New patchy bilateral upper lobe interstitial alveolar opacities. Rule out pneumonia/pneumonitis. 4. Again chronic findings including osteopenia, degenerative spondylosis, and hepatic cyst/hemangioma. - CXR: Right lateral decubitus chest radiograph now demonstrates layering left and right pleural effusions. Grossly stable left mid to lower lung infiltrate/atelectasis. Heart now appears borderline enlarged. - Repeat CXR ordered for Friday Code(s): U07.1 - COVID-19; J12.82 - PNEUMONIA DUE TO CORONAVIRUS DISEASE 2019 (2) CHF (congestive heart failure) Current Visit: Yes Status: Acute Assessment & Plan: - BNP 1750 today - Lasix 40 BID IV - Daily weight - Strict I&O's - + 3 pitting edema BLLE - + BL pleural effusions seen on CT chest - Echo results from most recent visit at [facility] pending - O2 BL 2lNC- 99% - Tele - EKG - Fluid restriction 2L - Keep K+ > 4 and Mg+> 2 Code(s): I50.9 - HEART FAILURE, UNSPECIFIED (3) Bilateral pleural effusion Current Visit: Yes Status: Acute Assessment & Plan: - CXR Friday - As seen on CT Chest Code(s): J90 - PLEURAL EFFUSION, NOT ELSEWHERE CLASSIFIED (4) Anemia Current Visit: Yes Status: Acute Qualifiers: Anemia type: unspecified type Qualified Code(s): D64.9 - Anemia, unspecified Assessment & Plan: - Iron panel - Hgb 9.4, HCT 28.6- trend Code(s): D64.9 - ANEMIA, UNSPECIFIED (5) Hypokalemia Current Visit: Yes Status: Acute Assessment & Plan: - K+ 3.3- replaced- trend - Tele Code(s): E87.6 - HYPOKALEMIA (6) A-fib Current Visit: Yes Status: Acute Assessment & Plan: - Continue Eliquis - Tele Code(s): I48.91 - UNSPECIFIED ATRIAL FIBRILLATION (7) COVID-19 virus infection Current Visit: Yes Status: Acute Assessment & Plan: - Dx 3 weeks ago - No longer needs to be in isolation - On baseline 2lNC - See plans above for related pneumonia Code(s): U07.1 - COVID-19 (8) Shortness of breath Current Visit: Yes Status: Acute Assessment & Plan: - On baseline 2lNC - Chest CT reviewed - See Pneumonia/ pleural effusion plans above Code(s): R06.02 - SHORTNESS OF BREATH (9) Bandemia Current Visit: No Status: Acute Assessment & Plan: - CBC, CMP reviewed - 2:2 COVID Pneumonia Code(s): D72.825 - BANDEMIA (10) Leukocytosis Current Visit: No Status: Acute Assessment & Plan: - UA pending - CT chest reviewed- + pneumonia- see plan above - CT abd/pelvis pending - WBC 17.1- improving Code(s): D72.829 - ELEVATED WHITE BLOOD CELL COUNT, UNSPECIFIED (11) Edema of both lower legs Current Visit: Yes Status: Acute Assessment & Plan: - + 3 pitting edema BLLE - Venous duplex Friday - Abd CT w & w/o contrast today - Elevate legs to decrease edema - CHD dx Code(s): R60.0 - LOCALIZED EDEMA (12) Thrombocytosis Current Visit: Yes Status: Acute Assessment & Plan: - 2:2 - Anemia, acute phase reaction, Pneumonia, inflammatory disorder VTE: Eliquis PUD prevention: Pepcid Next of KIN: daughter D/C plan: 2-3 days Code status: Full Plan of care time: > 50 minutes
[2025-03-05] MEDS ORDERED: Xopenex 1.25 MG/0.5 ML UD NEBULE IH PRN (11:16)
[2025-03-05 11:52] LABS: Iron 48 ug/dL (37-170); TIBC 155 ug/dL (265-462)
[2025-03-05 12:25] LABS: Glucose, Urine Negative (Negative); Protein,Urine Dip Negative (Negative); RBC 0-2 /HPF (0-5); WBC 0-2 /HPF (0-5)
[2025-03-05 12:47] LABS: Ferritin 530.0 ng/mL (11.1-264)
[2025-03-05] MEDS ORDERED: Xopenex 1.25 MG/0.5 ML UD NEBULE IH SCH (13:00)
[2025-03-05] MEDS: PHARMACY RENAL DOSING MC ONE (14:08)
[2025-03-05] MEDS ORDERED: HALLS COUGH DROPS 5.4 MG MM PRN (14:23)
--- NOTE | 2025-03-05 20:24 | XRAY ---
CLINICAL HISTORY: severe BLLE edema COMPARISON: 10/10/2020. TECHNIQUE: CT of the abdomen and pelvis was performed with and without contrast, with the following protocol: axial images with, and reconstructed coronal and sagittal images. One of the following dose reduction techniques was utilized for this exam: Automated exposure control, adjustment of the mA and/or kV according to patient size, and use of iterative reconstruction. FINDINGS: Abdomen: Liver: Right hepatic lobe segment 813.5 x 9 mm hypodense nonenhancing cyst. Normal in size, shape, and density. No focal lesions or masses were identified. Hepatic vasculature and biliary ducts are unremarkable. Gallbladder and Biliary System: There is an inhomogeneous area related to kriss fundus of the gallbladder, likely an artifact vs foldings. Unchanged The gallbladder is normal in size and shape. No wall thickening, pericholecystic fluid, or gallstones were identified. The common bile duct is normal in caliber without dilation. Pancreas: Pancreatic head, body, and tail are visualized and appear normal in size and density. No pancreatic masses or calcifications were noted. The pancreatic duct is not dilated. Spleen: Normal in size, shape, and density. No splenic lesions or masses were identified. Appendix: The appendix is not visualized with possible surgical site clips. Kidneys and Adrenal Glands: Bilateral renal simple hypoechoic nonenhancing cysts. The largest is seen on the left side, at the midpole, measuring 17 x 12 mm, and on the right side, the upper pole measuring 10 x 7 mm. Both kidneys are normal in size, shape, and position. Cortical thickness is within normal limits. No renal calculi or hydronephrosis. Adrenal glands are unremarkable with no evidence of masses or hyperplasia. Pelvis: Urinary Bladder: Normal in contour and wall thickness. No intraluminal lesions identified. Uterus: Hysterectomy. Ovaries: Right adnexal cyst, measuring 2.8 x 1.9 cm. Vagina: Normal in contour and wall thickness. Cervix: No evidence of mass or abnormal thickening. Peritoneal and Retroperitoneal Structures: No free fluid or abnormal fluid collections were identified within the abdomen or pelvis. No lymphadenopathy was noted. Bowel: Sliding hiatus hernia. Sigmoid colonic diverticulosis without acute diverticulitis. The visualized bowel loops are normal in caliber and appearance. No evidence of bowel obstruction or wall thickening. Bones and Soft Tissues: Grade1 anterolisthesis of L4 over L5 and grade 1 retrolisthesis of L5 over S1. Pelvic bones and soft tissues are unremarkable. No fractures or abnormal masses were identified. Mild bilateral pleural effusion, more on the left side, with underlying relaxation collapse. IMPRESSION: 1. Mild bilateral pleural effusion, more on the left side, with underlying relaxation collapse. 2. No acute intra-abdominal pathology. Clinical correlation is recommended for further evaluation. 3. Sigmoid colonic diverticulosis without acute diverticulitis. unchanged 4. Sliding hiatus hernia. Unchanged 5. Right adnexal cyst. Clinical and US evaluation is advised. Unchanged 6. Right hepatic lobe cyst. unchanged 7. Bilateral renal simple cortical cysts. unchanged Electronically Signed by: Juan Ware MD. (03/05/2025 20:24:04 EST)
[2025-03-05] MEDS: HALLS COUGH DROPS 5.4 MG MM PRN (21:26)
[2025-03-06 06:00] LABS: Hematocrit 35.0 % (34.1-44.9); Hemoglobin 11.0 g/dL (11.2-15.7); Mean Corpuscular Hemoglobin 29.9 pg (25.6-32.2); Mean Corpuscular Hgb Concent. 31.4 g/dL (32.2-35.5); Platelet Count 858 x10^3/uL (182-369); Red Blood Count 3.68 x10^6/uL (3.93-5.22); White Blood Count 13.5 x10^3/uL (3.98-10.04)
[2025-03-06 06:11] LABS: Calcium 8.4 mg/dL (8.4-10.2); Carbon Dioxide 29.0 mmol/L (22-30); Creatinine 1 0.61 mg/dL (0.52-1.04); EST GLOMERULAR FILTRATION RATE 91.5 ML/MIN; Glucose 130.0 mg/dL (74-106); Potassium 3.6 mmol/L (3.5-5.1); SGOT/AST 33.0 U/L (14-36); SGPT/ALT 31.0 U/L (0-35); Total Protein 6.7 g/dL (6.3-8.2)
[2025-03-06] MEDS: PATIENT OWN MEDICATION PO SCH (09:56)
[2025-03-06] MEDS: ELIQUIS 2.5 MG TABLET PO SCH (11:39)
--- NOTE | 2025-03-06 13:51 | PCM.NOTE ---
Date and Time: 03/06/25 1344 Subjective Assessment: 03/05/25 is a The patient is a 79-year-old female who presented to the emergency department on 03/04/25 from her primary care providers office due to worsening lower?extremity edema. She was previously evaluated in this ED on 02/21/25 and found to have a left pleural effusion and hyponatremia (Na 122), after which she was transferred to [facility]. There, she underwent thoracentesis, and pleural fluid cultures grew Streptococcus species. She was discharged on 03/03 with a 7-day course of clindamycin. During that hospitalization, she was also diagnosed with COVID-19 and treated with Remdesivir. Hematology evaluated her leukocytosis and determined it to be a leukemoid reaction. Her [id number] reports progressive lower-extremity edema since discharge. She was recently started on Eliquis for atrial fibrillation. In the ED, she required 3 L of oxygen, now reduced to 2 L, and CT imaging showed a pleural effusion without loculation or cavitary lesion. She was started on Zosyn and given 40 mg IV Lasix, now scheduled at 40 mg IV twice daily. On 03/05, the patient was resting in a chair and continued to have severe, pitting bilateral lower-extremity edema extending from the thighs to the feet. A CT abdomen/pelvis with and without contrast was ordered for further evaluation, and a bilateral lower-extremity venous duplex is planned for Friday. Her WBC count improved to 17.1, and potassium was 3.3 and replaced. She remains on her baseline 2 L oxygen with saturations of 97%. Zosyn is continued for bilateral upper-lobe pneumonia. Imaging suggests bilateral lower-lobe effusions, and thoracentesis may be considered Friday if clinically indicated. She reports intermittent left-sided chest discomfort at the prior chest tube site. Records and echocardiogram results from [facility] are being obtained for review. A sputum sample is pending. She denies additional concerns, and Xopenex and Solu-Medrol are being continued. 03/06/25 The patient is resting in bed and reports feeling better today. Edema in both lower extremities has improved. She is scheduled for bilateral lower extremity venous duplex study in the morning. Her CT abdomen and pelvis showed no concerning findings. She continues to have mild bilateral pleural effusions, more pronounced on the left, as noted on CT. A lung ultrasound is ordered for the morning to assess the volume of pleural fluid and determine whether thoracentesis is indicated; however, Eliquis would need to be held for at least 24 hours prior to any procedure. She will continue Zosyn, Xopenex, and steroids for pneumonia, as well as Lasix 40 mg twice daily for lower extremity edema. She remains on 2L nasal cannula with an oxygen saturation of 98%, which she reports is her new baseline since her last hospitalization, and home oxygen has already been arranged. She denies any additional concerns at this time. - Review of Systems Constitutional: No Fever, No Chills Eyes: No Symptoms Ears, Nose, & Throat: No Symptoms Respiratory: Short Of Breath, No Cough Cardiac: Edema (+3 pitting), No Chest Pain, No Syncope Abdominal/Gastrointestinal: No Abdominal Pain, No Nausea, No Vomiting, No Diarrhea Genitourinary Symptoms: No Dysuria Musculoskeletal: No Back Pain, No Neck Pain Skin: No Rash Neurological: No Dizziness, No Focal Weakness, No Sensory Changes Psychological: No Symptoms Endocrine: No Symptoms Hematologic/Lymphatic: No Symptoms Immunological/Allergic: No Symptoms Objective Exam General Appearance: no apparent distress, alert Neurologic Exam: alert, oriented x 3, cooperative, normal mood/affect, nml cerebellar function, sensation nml, No motor deficits Skin Exam: normal color, warm, dry Eye Exam: PERRL, EOMI, eyes nml inspection Ears, Nose, Throat Exam: normal ENT inspection, pharynx normal, moist mucous membranes Neck Exam: normal inspection, non-tender, supple, full range of motion Respiratory Exam: normal breath sounds, lungs clear, diminished breath sounds (BLLL), No respiratory distress Cardiovascular Exam: regular rate/rhythm, normal heart sounds, normal peripheral pulses, edema (+ 3 pitting BLLE) Gastrointestinal/Abdomen Exam: soft, No tenderness, No mass Extremity Exam: normal inspection, normal range of motion Back Exam: normal inspection, normal range of motion, No CVA tenderness, No vertebral tenderness Pelvic Exam: deferred Rectal Exam: deferred Objective Data Vital Signs: Vital Signs - 24 hr Temp Pulse Resp BP Pulse Ox 03/06/25 11:55 97.8 F 73 16 123/61 98 03/06/25 07:39 97.9 F 72 16 148/68 98 03/06/25 07:35 73 16 98 03/06/25 04:00 98.0 F 70 18 130/60 97 03/05/25 23:47 97.9 F 71 16 127/65 99 03/05/25 20:00 98.1 F 144 H 18 136/68 96 03/05/25 16:00 98.2 F 75 16 159/65 98 Pain Assessment - Last Documented Pain Intensity 0 Pain Scale Used 0-10 Pain Scale Intake and Output: Intake & Output 03/04/25 03/05/25 03/06/25 03/07/25 11:59 11:59 11:59 11:59 Intake Total 1180 850 240 Output Total 2300 4100 Balance -1120 -3250 240 Weight 61.3 kg 61.3 kg Lab Results: Lab Results-Last 24 Hours 03/05/25 03/06/25 03/06/25 Range/Units 14:00 05:32 05:32 WBC 13.5 H (3.98-10.04) x10^3/uL RBC 3.68 L (3.93-5.22) x10^6/uL Hgb 11.0 L (11.2-15.7) g/dL Hct 35.0 (34.1-44.9) % MCV 95.1 H (79.4-94.8) fL MCH 29.9 (25.6-32.2) pg MCHC 31.4 L (32.2-35.5) g/dL RDW 13.9 (11.7-14.4) % Plt Count 858 H (182-369) x10^3/uL MPV 9.1 L (9.4-12.3) fL Sodium (135-145) mmol/L Potassium 4.4 D (3.5-5.1) mmol/L Chloride (98-107) mmol/L Carbon Dioxide (22-30) mmol/L Anion Gap (5-15) MEQ/L BUN (7-17) mg/dL Creatinine (0.52-1.04) mg/dL Estimated GFR ML/MIN Glucose (74-106) mg/dL Calcium (8.4-10.2) mg/dL Magnesium 2.1 (1.6-2.3) mg/dL Total Bilirubin (0.2-1.3) mg/dL AST (14-36) U/L ALT (0-35) U/L Alkaline Phosphatase (38-126) U/L Serum Total Protein (6.3-8.2) g/dL Albumin (3.5-5.0) g/dL 03/06/25 Range/Units 05:32 WBC (3.98-10.04) x10^3/uL RBC (3.93-5.22) x10^6/uL Hgb (11.2-15.7) g/dL Hct (34.1-44.9) % MCV (79.4-94.8) fL MCH (25.6-32.2) pg MCHC (32.2-35.5) g/dL RDW (11.7-14.4) % Plt Count (182-369) x10^3/uL MPV (9.4-12.3) fL Sodium 134 L (135-145) mmol/L Potassium 3.6 (3.5-5.1) mmol/L Chloride 95 L (98-107) mmol/L Carbon Dioxide 29 (22-30) mmol/L Anion Gap 12.8 (5-15) MEQ/L BUN 13 (7-17) mg/dL Creatinine 0.61 (0.52-1.04) mg/dL Estimated GFR 91.5 ML/MIN Glucose 130 H (74-106) mg/dL Calcium 8.4 (8.4-10.2) mg/dL Magnesium (1.6-2.3) mg/dL Total Bilirubin 0.60 (0.2-1.3) mg/dL AST 33 (14-36) U/L ALT 31 (0-35) U/L Alkaline Phosphatase 151 H (38-126) U/L Serum Total Protein 6.7 (6.3-8.2) g/dL Albumin 3.3 L (3.5-5.0) g/dL Radiology Exams: Radiology Procedures Category Date Time Status ABDOMEN AND PELVIS W&WO CONTRA [CT] Routine Exams 03/05/25 10:43 Completed CHEST 1 VIEW (PORTABLE) Routine Exams 03/07/25 08:00 Ordered CHEST 1 VIEW (PORTABLE) Stat Exams 03/04/25 16:58 Completed CHEST 1 VIEW (PORTABLE) Stat Exams 03/04/25 18:33 Completed CHEST ULTRASOUND [US] Routine Exams 03/07/25 10:28 Ordered CHEST WITH CONTRAST [CT] Stat Exams 03/04/25 18:34 Completed THORACENTESIS [US] Routine Exams 03/07/25 08:00 Stop Req VENOUS BILATERAL EXTREMITY [US] Routine Exams 03/07/25 08:00 Ordered Medications: Medications Generic Name Dose Route Start Last Admin Trade Name Freq PRN Reason Stop Dose Admin Acetaminophen 650 mg 03/04/25 21:32 03/06/25 09:41 Acetaminophen 325 Mg Tablet PO 04/03/25 21:31 650 mg Q4H PRN PRN Administration PAIN, FEVER, HEADACHE Amiodarone HCl 200 mg 03/05/25 10:00 03/06/25 09:44 Amiodarone Hcl 200 Mg Tab PO 04/04/25 09:59 200 mg DAILY CRISTOFER Administration Apixaban 5 mg 03/06/25 10:59 03/06/25 11:39 Apixaban 2.5 Mg Tablet PO 04/05/25 10:58 5 mg BID CRISTOFER Administration Cholecalciferol 2,000 unit 03/05/25 10:00 03/06/25 09:42 Cholecalciferol (Vitamin D3) 1000 Unit Tablet PO 04/04/25 09:59 2,000 unit DAILY CRISTOFER Administration Methylprednisolone Sodium 0 mg 03/05/25 10:00 03/06/25 09:43 Succinate 40 mg/ Sterile Water IV 04/04/25 09:59 40 mg 1 ml Q12HT CRISTOFER Administration Famotidine 20 mg 03/05/25 10:00 03/06/25 09:43 Famotidine 20 Mg Tablet PO 04/04/25 09:59 20 mg BID CRISTOFER Administration Furosemide 40 mg 03/05/25 17:00 03/06/25 09:43 Furosemide 40 Mg/4 Ml Vial IV 04/04/25 16:59 40 mg BID DIURETIC CRISTOFER Administration Piperacillin Sod/Tazobactam 100 mls @ 200 mls/hr 03/05/25 00:00 03/06/25 11:39 Sod 3.375 gm/ Sodium Chloride IV 03/08/25 00:00 200 mls/hr Q6HT CRISTOFER Administration Levalbuterol HCl 1.25 mg 03/05/25 11:16 Levalbuterol Hcl 1.25 Mg/0.5 Ml Neb IH 04/04/25 11:14 Q6HPRN PRN SHORTNESS OF BREATH/WHEEZING Menthol 5.4 mg 03/05/25 14:33 03/05/25 21:26 Menthol 5.4 Mg Lozenge MM 04/04/25 14:22 5.4 mg Q2HPRN PRN Administration COUGH Ondansetron HCl 4 mg 03/04/25 21:32 03/05/25 10:22 Ondansetron Hcl 4 Mg/2 Ml Vial IV 04/03/25 21:31 4 mg Q6H PRN PRN Administration NAUSEA/VOMITING Viactiv - Patient 2 each 03/06/25 10:00 03/06/25 09:56 Own Med Misc PO 04/05/25 09:59 2 each DAILY CRISTOFER Administration Discontinued Medications Generic Name Dose Route Start Last Admin Trade Name Freq PRN Reason Stop Dose Admin Albuterol/Ipratropium 3 ml 03/04/25 21:59 Ipratropium/Albuterol Sulfate 3 Ml Ampul.Neb IH 04/03/25 21:58 Q4HPRN PRN SHORTNESS OF BREATH/WHEEZING Apixaban 5 mg 03/04/25 22:00 03/05/25 00:08 Apixaban 2.5 Mg Tablet PO 04/03/25 21:59 5 mg BID CRISTOFER Administration Apixaban 5 mg 03/05/25 10:00 03/05/25 21:09 Apixaban 2.5 Mg Tablet PO 04/04/25 09:59 5 mg BID CRISTOFER Administration Calcium Carbonate 2 tab 03/05/25 10:00 03/05/25 09:45 Calcium Carbonate 500 Mg/Vitamin D 1 Tab Tablet PO 04/04/25 09:59 Not Given DAILY CRISTOFER Furosemide 40 mg 03/04/25 18:14 03/04/25 18:40 Furosemide 40 Mg/4 Ml Vial IV 03/04/25 18:15 40 mg STAT ONE Administration Furosemide Confirm 03/04/25 18:36 Furosemide 40 Mg/4 Ml Vial Administered 03/04/25 18:37 Dose 40 mg .ROUTE .STK-MED ONE Furosemide 40 mg 03/04/25 21:32 03/04/25 22:46 Furosemide 40 Mg/4 Ml Vial IV 04/03/25 21:31 Not Given Q12H CRISTOFER Furosemide 40 mg 03/05/25 06:00 03/05/25 05:30 Furosemide 40 Mg/4 Ml Vial IV 04/04/25 05:59 40 mg Q12H CRISTOFER Administration Piperacillin Sod/Tazobactam 100 mls @ 200 mls/hr 03/04/25 18:14 03/04/25 19:09 Sod 3.375 gm/ Sodium Chloride IV 03/04/25 18:43 Infused STAT STA Infusion Sodium Chloride 500 mls @ 100 mls/hr 03/04/25 18:45 03/04/25 21:33 Sodium Chloride 0.9% 500 Ml IV 04/03/25 18:44 0 mls/hr .Q5H CRISTOFER Infusion Sodium Chloride Confirm 03/04/25 18:36 Sodium Chloride 0.9% Administered 03/04/25 18:37 Dose 100 mls @ ud .ROUTE .STK-MED ONE Sodium Chloride Confirm 03/04/25 18:36 Sodium Chloride 0.9% 500 Ml Administered 03/04/25 18:37 Dose 500 mls @ ud IV .STK-MED ONE Sodium Chloride 1,000 mls @ 50 mls/hr 03/04/25 21:32 03/04/25 22:47 Sodium Chloride 0.9% 1000 Ml IV 04/03/25 21:31 Not Given .Q20H CRISTOFER Sodium Chloride Confirm 03/04/25 23:55 Sodium Chloride 0.9% Administered 03/04/25 23:56 Dose 100 mls @ ud .ROUTE .STK-MED ONE Sodium Chloride Confirm 03/05/25 05:13 Sodium Chloride 0.9% Administered 03/05/25 05:14 Dose 100 mls @ ud .ROUTE .STK-MED ONE Levalbuterol HCl 1.25 mg 03/05/25 13:00 Levalbuterol Hcl 1.25 Mg/0.5 Ml Neb IH 04/04/25 12:59 Q6HRT CRISTOFER Menthol 5.4 mg 03/05/25 14:23 Menthol 5.4 Mg Lozenge MM 04/04/25 14:22 PRN PRN COUGH Non-Formulary Medication 1 each 03/05/25 14:03 03/05/25 14:08 Pharmacy Dosing Request 03/05/25 14:04 1 each STAT ONE Administration Piperacillin Sod/Tazobactam Sod Confirm 03/04/25 18:36 Piperacillin/Tazobactam Sodium 3.375 Gm Vial Administered 03/04/25 18:37 Dose 3.375 gm IV .STK-MED ONE Piperacillin Sod/Tazobactam Sod Confirm 03/04/25 23:54 Piperacillin/Tazobactam Sodium 3.375 Gm Vial Administered 03/04/25 23:55 Dose 3.375 gm IV .STK-MED ONE Piperacillin Sod/Tazobactam Sod Confirm 03/05/25 05:13 Piperacillin/Tazobactam Sodium 3.375 Gm Vial Administered 03/05/25 05:14 Dose 3.375 gm IV .STK-MED ONE Potassium Bicarbonate 25 meq 03/05/25 07:45 03/05/25 11:58 Potassium Bicarbonate 25 Meq Tab PO 03/05/25 11:46 25 meq Q2H CRISTOFER Administration Potassium Chloride 20 meq 03/04/25 18:10 03/04/25 18:41 Potassium Chloride Tab 10 Meq Tab PO 03/04/25 18:11 20 meq STAT ONE Administration Potassium Chloride Confirm 03/04/25 18:36 Potassium Chloride Tab 10 Meq Tab Administered 03/04/25 18:37 Dose 20 meq .ROUTE .STK-MED ONE Assessment/Plan (1) Pneumonia due to COVID-19 virus Current Visit: Yes Status: Acute Code(s): U07.1 - COVID-19; J12.82 - PNEUMONIA DUE TO CORONAVIRUS DISEASE 2019 (2) CHF (congestive heart failure) Current Visit: Yes Status: Acute Code(s): I50.9 - HEART FAILURE, UNSPECIFIED (3) Bilateral pleural effusion Current Visit: Yes Status: Acute Code(s): J90 - PLEURAL EFFUSION, NOT ELSEWHERE CLASSIFIED (4) Anemia Current Visit: Yes Status: Acute Qualifiers: Anemia type: unspecified type Qualified Code(s): D64.9 - Anemia, unspecified Code(s): D64.9 - ANEMIA, UNSPECIFIED (5) Hypokalemia Current Visit: Yes Status: Acute Code(s): E87.6 - HYPOKALEMIA (6) A-fib Current Visit: Yes Status: Acute Code(s): I48.91 - UNSPECIFIED ATRIAL FIBRILLATION (7) COVID-19 virus infection Current Visit: Yes Status: Acute Code(s): U07.1 - COVID-19 (8) Shortness of breath Current Visit: Yes Status: Acute Code(s): R06.02 - SHORTNESS OF BREATH (9) Bandemia Current Visit: No Status: Acute Code(s): D72.825 - BANDEMIA (10) Leukocytosis Current Visit: No Status: Acute Code(s): D72.829 - ELEVATED WHITE BLOOD CELL COUNT, UNSPECIFIED (11) Edema of both lower legs Current Visit: Yes Status: Acute Code(s): R60.0 - LOCALIZED EDEMA (12) Thrombocytosis Current Visit: Yes Status: Acute Assessment & Plan: (1) Pneumonia due to COVID-19 virus Current Visit: Yes Status: Acute Assessment & Plan: - Recent dx of COVID 3 weeks ago. - Zosyn IV - Solumedrol, Xoponex - CBC, CMP reviewed - Obtain medical records from [facility] - On baseline 2lNC - CT chest: 1. Diffuse respiration artifact limits pulmonary embolus evaluation. No obvious central pulmonary embolus. 2. New borderline cardiomegaly with new right and diminished left effusions/atelectasis. Rule out cardiac decompensation/CHF versus fluid overload. 3. New patchy bilateral upper lobe interstitial alveolar opacities. Rule out pneumonia/pneumonitis. 4. Again chronic findings including osteopenia, degenerative spondylosis, and hepatic cyst/hemangioma. - CXR: Right lateral decubitus chest radiograph now demonstrates layering left and right pleural effusions. Grossly stable left mid to lower lung infiltrate/atelectasis. Heart now appears borderline enlarged. - Repeat CXR ordered for Tuesday 03/06 - On BL O2 2lNC 97% - US BL lungs in AM - CXR in AM - CBC, CMP reviewed - BC x2 and sputum prelim negative Code(s): U07.1 - COVID-19; J12.82 - PNEUMONIA DUE TO CORONAVIRUS DISEASE 2019 (2) CHF (congestive heart failure) Current Visit: Yes Status: Acute Assessment & Plan: - BNP 1750 today - Lasix 40 BID IV - Daily weight - Strict I&O's - + 3 pitting edema BLLE - + BL pleural effusions seen on CT chest - Echo results from most recent visit at [facility] pending - O2 BL 2lNC- 99% - Tele - EKG - Fluid restriction 2L - Keep K+ > 4 and Mg+> 2 03/06 - K+ replaced to keep > 4 - Echo results sent to the [facility] and cannot be removed until Friday- Results sent from [facility] - No weight loss since yesterday Code(s): I50.9 - HEART FAILURE, UNSPECIFIED (3) Bilateral pleural effusion Current Visit: Yes Status: Acute Assessment & Plan: - CXR Friday - As seen on CT Chest - US BL lungs in AM Code(s): J90 - PLEURAL EFFUSION, NOT ELSEWHERE CLASSIFIED (4) Anemia Current Visit: Yes Status: Acute Qualifiers: Anemia type: unspecified type Qualified Code(s): D64.9 - Anemia, unspecified Assessment & Plan: - Iron panel - Hgb 9.4, HCT 28.6- trend 03/06 - Hgb 11.0 Code(s): D64.9 - ANEMIA, UNSPECIFIED (5) Hypokalemia Current Visit: Yes Status: Acute Assessment & Plan: - K+ 3.3- replaced- trend - Tele 03/06 - Resolved Code(s): E87.6 - HYPOKALEMIA (6) A-fib Current Visit: Yes Status: Acute Assessment & Plan: - Continue Eliquis - Tele Code(s): I48.91 - UNSPECIFIED ATRIAL FIBRILLATION (7) COVID-19 virus infection Current Visit: Yes Status: Acute Assessment & Plan: - Dx 3 weeks ago - No longer needs to be in isolation - On baseline 2lNC - See plans above for related pneumonia Code(s): U07.1 - COVID-19 (8) Shortness of breath Current Visit: Yes Status: Acute Assessment & Plan: - On baseline 2lNC - Chest CT reviewed - See Pneumonia/ pleural effusion plans above Code(s): R06.02 - SHORTNESS OF BREATH (9) Bandemia Current Visit: No Status: Acute Assessment & Plan: - CBC, CMP reviewed - 2:2 COVID Pneumonia Code(s): D72.825 - BANDEMIA (10) Leukocytosis Current Visit: No Status: Acute Assessment & Plan: - UA pending - CT chest reviewed- + pneumonia- see plan above - CT abd/pelvis pending - WBC 17.1- improving 03/06 - WBC 13.5- improving Code(s): D72.829 - ELEVATED WHITE BLOOD CELL COUNT, UNSPECIFIED (11) Edema of both lower legs Current Visit: Yes Status: Acute Assessment & Plan: - + 3 pitting edema BLLE - Venous duplex Friday - Abd CT w & w/o contrast today - Elevate legs to decrease edema 03/06 - Improving but continued +3 pitting - Continue Lasix IV 40 BID - + 3 pitting edema BLLE - Venous duplex Code(s): R60.0 - LOCALIZED EDEMA (12) Thrombocytosis Current Visit: Yes Status: Acute Assessment & Plan: - 2:2 - Anemia, acute phase reaction, Pneumonia, inflammatory disorder 03/06 - PLT 858 VTE: Eliquis PUD prevention: Pepcid Next of KIN: daughter D/C plan: 2-3 days Code status: Full Plan of care time: > 45 minutes
[2025-03-06] MEDS: Klor Con PO ONE (15:24)
[2025-03-06] MEDS: K-LYTE PO ONE (15:27)
--- NOTE | 2025-03-07 05:43 | PCM.NOTE ---
Date and Time: 03/07/25 0538 Subjective Assessment: HPI: Ms. Vogt is a 79-year-old female presented from PCP office on 03/04/25 for worsening bilateral lower-extremity edema. Pt was seen at [facility] ED on 02/21/25 with a left pleural effusion and severe hyponatremia (Na 122) and was transferred to [facility], where she underwent thoracentesis with pleural fluid cultures growing Streptococcus species. During that admission she was also diagnosed with COVID-19 and treated with remdesivir; hematology evaluated leukocytosis and felt it represented a leukemoid reaction. She was discharged 03/03/25 on a 7-day course of clindamycin. Since discharge, family reported progressive leg edema; she was recently started on Eliquis for atrial fibrillation. On arrival this admission, she required 3 L oxygen and is now on [address] chest showed pleural effusions without loculation/cavitary lesion and new bilateral upper-lobe interstitial/alveolar opacities concerning for pneumonia/pneumonitis; PE evaluation limited by motion artifact with no obvious central PE. Right lateral decubitus CXR demonstrated layering bilateral pleural effusions with stable left [id number] lung infiltrate/atelectasis and borderline cardiomegaly. She was started on IV Zosyn, steroids (Solu-Medrol), and Xopenex, and given IV Lasix (now 40 mg IV BID) for suspected fluid overload/CHF contributing to effusions and edema (BNP 1750). WBC has improved (17.1 - 13.5). Potassium was low (3.3) and replaced, now resolved. CT abdomen/pelvis with and without contrast showed no concerning findings. She remains on 2 L NC with sats 9798%, which she reports is her new baseline since her recent hospitalization, and home oxygen is already arranged. Edema has improved but persists (+3 pitting). Bilateral lower-extremity venous duplex is scheduled; lung ultrasound is ordered to quantify pleural fluid and guide need for thoracentesis (would require holding Eliquis ?24 hours). Blood cultures x2 and sputum are prelim negative. Prior echocardiogram records from [place] are being obtained for review (not available until Friday due to cloud upload issue). She reports intermittent left-sided chest discomfort at prior chest tube site but otherwise feels better. 03/07/25: Met with patient bedside. Endorses improved BLE edema and dyspnea and is saturating 97% on 2 L nasal cannula. Will trial room air today with close monitoring. Chest ultrasound shows small bilateral pleural effusions, with a 5.4 2.1 cm pocket on the right and 5.4 4.3 cm on the left, not amenable to thoracentesis. Venous Doppler demonstrates a non-occlusive right popliteal DVT, with no left-sided DVT. Given DVT development while on Eliquis, this is felt to represent anticoagulation failure, and therapy has been transitioned to warfarin (Coumadin) with INR monitoring per protocol. WBC increased to 16.2, likely reactive in the setting of recent steroid administration in the ED. The patient remains afebrile and clinically improving. Overall, the patient is stable with improving respiratory status. Will continue to monitor oxygen needs, anticoagulation, and laboratory trends. - Review of Systems Constitutional: Weakness Eyes: No Symptoms Ears, Nose, & Throat: No Symptoms Respiratory: Cough, Short Of Breath Cardiac: Edema (BLE +2 pitting) Abdominal/Gastrointestinal: No Symptoms Genitourinary Symptoms: No Symptoms Musculoskeletal: No Symptoms Skin: No Symptoms Neurological: No Symptoms Psychological: No Symptoms Endocrine: No Symptoms Hematologic/Lymphatic: No Symptoms Immunological/Allergic: No Symptoms Objective Exam General Appearance: no apparent distress Neurologic Exam: alert, oriented x 3, cooperative Skin Exam: normal color Eye Exam: PERRL Ears, Nose, Throat Exam: normal ENT inspection Neck Exam: normal inspection Respiratory Exam: diminished breath sounds, crackles/rales Cardiovascular Exam: regular rate/rhythm, normal heart sounds Gastrointestinal/Abdomen Exam: soft, normal bowel sounds Extremity Exam: swelling (BLE +2 pitting) Back Exam: normal inspection Pelvic Exam: deferred Rectal Exam: deferred Objective Data Vital Signs: Vital Signs - 24 hr Temp Pulse Resp BP Pulse Ox 03/07/25 03:49 97.6 F 76 20 135/63 96 03/07/25 00:00 97.9 F 70 16 126/60 99 03/06/25 19:45 98.2 F 75 18 137/63 99 03/06/25 18:53 75 18 98 03/06/25 15:45 97.7 F 78 18 148/66 99 03/06/25 11:55 97.8 F 73 16 123/61 98 03/06/25 07:39 97.9 F 72 16 148/68 98 03/06/25 07:35 73 16 98 Pain Assessment - Last Documented Pain Intensity 0 Pain Scale Used 0-10 Pain Scale Intake and Output: Intake & Output 03/04/25 03/05/25 03/06/25 03/07/25 11:59 11:59 11:59 11:59 Intake Total 1180 850 440 Output Total 2300 4100 2000 Balance -9471 -7909 -1720 Weight 61.3 kg 61.3 kg Lab Results: Lab Results-Last 24 Hours 03/06/25 03/06/25 03/06/25 Range/Units 05:32 05:32 05:32 WBC 13.5 H (3.98-10.04) x10^3/uL RBC 3.68 L (3.93-5.22) x10^6/uL Hgb 11.0 L (11.2-15.7) g/dL Hct 35.0 (34.1-44.9) % MCV 95.1 H (79.4-94.8) fL MCH 29.9 (25.6-32.2) pg MCHC 31.4 L (32.2-35.5) g/dL RDW 13.9 (11.7-14.4) % Plt Count 858 H (182-369) x10^3/uL MPV 9.1 L (9.4-12.3) fL Sodium 134 L (135-145) mmol/L Potassium 3.6 (3.5-5.1) mmol/L Chloride 95 L (98-107) mmol/L Carbon Dioxide 29 (22-30) mmol/L Anion Gap 12.8 (5-15) MEQ/L BUN 13 (7-17) mg/dL Creatinine 0.61 (0.52-1.04) mg/dL Estimated GFR 91.5 ML/MIN Glucose 130 H (74-106) mg/dL Calcium 8.4 (8.4-10.2) mg/dL Magnesium 2.1 (1.6-2.3) mg/dL Total Bilirubin 0.60 (0.2-1.3) mg/dL AST 33 (14-36) U/L ALT 31 (0-35) U/L Alkaline Phosphatase 151 H (38-126) U/L Serum Total Protein 6.7 (6.3-8.2) g/dL Albumin 3.3 L (3.5-5.0) g/dL Radiology Exams: Radiology Procedures Category Date Time Status ABDOMEN AND PELVIS W&WO CONTRA [CT] Routine Exams 03/05/25 10:43 Completed CHEST 1 VIEW (PORTABLE) Routine Exams 03/07/25 08:00 Ordered CHEST ULTRASOUND [US] Routine Exams 03/07/25 10:28 Ordered THORACENTESIS [US] Routine Exams 03/07/25 08:00 Stop Req VENOUS BILATERAL EXTREMITY [US] Routine Exams 03/07/25 08:00 Ordered Medications: Medications Generic Name Dose Route Start Last Admin Trade Name Freq PRN Reason Stop Dose Admin Acetaminophen 650 mg 03/04/25 21:32 03/06/25 21:39 Acetaminophen 325 Mg Tablet PO 04/03/25 21:31 650 mg Q4H PRN PRN Administration PAIN, FEVER, HEADACHE Amiodarone HCl 200 mg 03/05/25 10:00 03/06/25 09:44 Amiodarone Hcl 200 Mg Tab PO 04/04/25 09:59 200 mg DAILY CRISTOFER Administration Cholecalciferol 2,000 unit 03/05/25 10:00 03/06/25 09:42 Cholecalciferol (Vitamin D3) 1000 Unit Tablet PO 04/04/25 09:59 2,000 unit DAILY CRISTOFER Administration Methylprednisolone Sodium 0 mg 03/05/25 10:00 03/06/25 21:39 Succinate 40 mg/ Sterile Water IV 04/04/25 09:59 40 mg 1 ml Q12HT CRISTOFER Administration Famotidine 20 mg 03/05/25 10:00 03/06/25 21:39 Famotidine 20 Mg Tablet PO 04/04/25 09:59 20 mg BID CRISTOFER Administration Furosemide 40 mg 03/05/25 17:00 03/06/25 17:24 Furosemide 40 Mg/4 Ml Vial IV 04/04/25 16:59 40 mg BID DIURETIC CRISTOFER Administration Piperacillin Sod/Tazobactam 100 mls @ 200 mls/hr 03/05/25 00:00 03/06/25 23:34 Sod 3.375 gm/ Sodium Chloride IV 03/08/25 00:00 200 mls/hr Q6HT CRISTOFER Administration Levalbuterol HCl 1.25 mg 03/05/25 11:16 Levalbuterol Hcl 1.25 Mg/0.5 Ml Neb 04/04/25 11:14 Q6HPRN PRN SHORTNESS OF BREATH/WHEEZING Menthol 5.4 mg 03/05/25 14:33 03/05/25 21:26 Menthol 5.4 Mg Lozenge MM 04/04/25 14:22 5.4 mg Q2HPRN PRN Administration COUGH Non-Formulary Medication 1 each 03/06/25 14:09 Pharmacy Dosing Request 03/06/25 14:10 STAT ONE Ondansetron HCl 4 mg 03/04/25 21:32 03/05/25 10:22 Ondansetron Hcl 4 Mg/2 Ml Vial IV 04/03/25 21:31 4 mg Q6H PRN PRN Administration NAUSEA/VOMITING Viactiv - Patient 2 each 03/06/25 10:00 03/06/25 09:56 Own Med Misc PO 04/05/25 09:59 2 each DAILY CRISTOFER Administration Discontinued Medications Generic Name Dose Route Start Last Admin Trade Name Freq PRN Reason Stop Dose Admin Albuterol/Ipratropium 3 ml 03/04/25 21:59 Ipratropium/Albuterol Sulfate 3 Ml Ampul[facility] 04/03/25 21:58 Q4HPRN PRN SHORTNESS OF BREATH/WHEEZING Apixaban 5 mg 03/04/25 22:00 03/05/25 00:08 Apixaban 2.5 Mg Tablet PO 04/03/25 21:59 5 mg BID CRISTOFER Administration Apixaban 5 mg 03/05/25 10:00 03/05/25 21:09 Apixaban 2.5 Mg Tablet PO 04/04/25 09:59 5 mg BID CRISTOFER Administration Apixaban 5 mg 03/06/25 10:59 03/06/25 21:39 Apixaban 2.5 Mg Tablet PO 03/06/25 22:01 5 mg BID CRISTOFER Administration Calcium Carbonate 2 tab 03/05/25 10:00 03/05/25 09:45 Calcium Carbonate 500 Mg/Vitamin D 1 Tab Tablet PO 04/04/25 09:59 Not Given DAILY CRISTOFER Furosemide 40 mg 03/04/25 18:14 03/04/25 18:40 Furosemide 40 Mg/4 Ml Vial IV 03/04/25 18:15 40 mg STAT ONE Administration Furosemide Confirm 03/04/25 18:36 Furosemide 40 Mg/4 Ml Vial Administered 03/04/25 18:37 Dose 40 mg .ROUTE .STK-MED ONE Furosemide 40 mg 03/04/25 21:32 03/04/25 22:46 Furosemide 40 Mg/4 Ml Vial IV 04/03/25 21:31 Not Given Q12H CRISTOFER Furosemide 40 mg 03/05/25 06:00 03/05/25 05:30 Furosemide 40 Mg/4 Ml Vial IV 04/04/25 05:59 40 mg Q12H CRISTOFER Administration Piperacillin Sod/Tazobactam 100 mls @ 200 mls/hr 03/04/25 18:14 03/04/25 19:09 Sod 3.375 gm/ Sodium Chloride IV 03/04/25 18:43 Infused STAT STA Infusion Sodium Chloride 500 mls @ 100 mls/hr 03/04/25 18:45 03/04/25 21:33 Sodium Chloride 0.9% 500 Ml IV 04/03/25 18:44 0 mls/hr .Q5H CRISTOFER Infusion Sodium Chloride Confirm 03/04/25 18:36 Sodium Chloride 0.9% Administered 03/04/25 18:37 Dose 100 mls @ ud .ROUTE .STK-MED ONE Sodium Chloride Confirm 03/04/25 18:36 Sodium Chloride 0.9% 500 Ml Administered 03/04/25 18:37 Dose 500 mls @ ud IV .STK-MED ONE Sodium Chloride 1,000 mls @ 50 mls/hr 03/04/25 21:32 03/04/25 22:47 Sodium Chloride 0.9% 1000 Ml IV 04/03/25 21:31 Not Given .Q20H CRISTOFER Sodium Chloride Confirm 03/04/25 23:55 Sodium Chloride 0.9% Administered 03/04/25 23:56 Dose 100 mls @ ud .ROUTE .STK-MED ONE Sodium Chloride Confirm 03/05/25 05:13 Sodium Chloride 0.9% Administered 03/05/25 05:14 Dose 100 mls @ ud .ROUTE .STK-MED ONE Levalbuterol HCl 1.25 mg 03/05/25 13:00 Levalbuterol Hcl 1.25 Mg/0.5 Ml Neb IH 04/04/25 12:59 Q6HRT CRISTOFER Menthol 5.4 mg 03/05/25 14:23 Menthol 5.4 Mg Lozenge MM 04/04/25 14:22 PRN PRN COUGH Non-Formulary Medication 1 each 03/05/25 14:03 03/05/25 14:08 Pharmacy Dosing Request [facility] 03/05/25 14:04 1 each STAT ONE Administration Piperacillin Sod/Tazobactam Sod Confirm 03/04/25 18:36 Piperacillin/Tazobactam Sodium 3.375 Gm Vial Administered 03/04/25 18:37 Dose 3.375 gm IV .STK-MED ONE Piperacillin Sod/Tazobactam Sod Confirm 03/04/25 23:54 Piperacillin/Tazobactam Sodium 3.375 Gm Vial Administered 03/04/25 23:55 Dose 3.375 gm IV .STK-MED ONE Piperacillin Sod/Tazobactam Sod Confirm 03/05/25 05:13 Piperacillin/Tazobactam Sodium 3.375 Gm Vial Administered 03/05/25 05:14 Dose 3.375 gm IV .STK-MED ONE Potassium Bicarbonate 25 meq 03/05/25 07:45 03/05/25 11:58 Potassium Bicarbonate 25 Meq Tab PO 03/05/25 11:46 25 meq Q2H CRISTOFER Administration Potassium Bicarbonate 25 meq 03/06/25 15:03 03/06/25 15:27 Potassium Bicarbonate 25 Meq Tab PO 03/06/25 15:04 25 meq STAT ONE Administration Potassium Chloride 20 meq 03/04/25 18:10 03/04/25 18:41 Potassium Chloride Tab 10 Meq Tab PO 03/04/25 18:11 20 meq STAT ONE Administration Potassium Chloride Confirm 03/04/25 18:36 Potassium Chloride Tab 10 Meq Tab Administered 03/04/25 18:37 Dose 20 meq .ROUTE .STK-MED ONE Potassium Chloride 40 meq 03/06/25 13:53 03/06/25 15:24 Potassium Chloride Tab 10 Meq Tab PO 03/06/25 13:54 Not Given STAT ONE Assessment/Plan (1) Pneumonia due to COVID-19 virus Current Visit: Yes Status: Acute Assessment & Plan: Recent COVID-19 infection (diagnosed ~3 weeks ago) -Completed remdesivir during prior hospitalization -No longer requires isolation -Supportive care; pneumonia management as above -CT chest: new patchy bilateral upper-lobe interstitial/alveolar opacities concerning for pneumonia/pneumonitis; no cavitary lesion; PE eval limited by respiratory artifact with no obvious central PE -CXR (right lateral decubitus): layering bilateral pleural effusions; stable left [id number] lung infiltrate/atelectasis; borderline cardiomegaly -Continue IV Zosyn -Trend CBC/CMP -Blood cultures x2 -sputum prelim with gram positive cocci and gram + rods -check MRSA nare -Repeat CXR showing continued minimal clearing left lung infiltrate/atelectasis/effusion with grossly stable small right effusion. Previous right upper lung ground-glass opacity has cleared. Heart not enlarged. No new cardiopulmonary abnormalities -Chest US with small 5.4 x 2.1 cm pocket right effusion and 5.4 x 4.3 cm pocket left effusion - no thoracentesis indicated Code(s): U07.1 - COVID-19; J12.82 - PNEUMONIA DUE TO CORONAVIRUS DISEASE 2019 (2) Bilateral pleural effusion Current Visit: Yes Status: Acute Assessment & Plan: -CT chest and CXR: layering bilateral pleural effusions; no loculation or cavitary lesion -Lung ultrasound ordered today to quantify effusion volume -Thoracentesis to be considered if clinically indicated (would need Eliquis held ?24 hours) -Repeat CXR today Code(s): J90 - PLEURAL EFFUSION, NOT ELSEWHERE CLASSIFIED (3) Bilateral lower extremity edema Current Visit: Yes Status: Acute Assessment & Plan: -Severe edema from thighs to feet initially; improving but persistent -Continue Lasix 40 mg IV BID -Leg elevation; TEDs if tolerated -Bilateral lower-extremity venous duplex demonstrates a non-occlusive right popliteal DVT, with no left-sided DVT. Given DVT development while on Eliquis, this is felt to represent anticoagulation failure, and therapy has been transitioned to warfarin (Coumadin) with INR monitoring per protocol Code(s): R60.0 - LOCALIZED EDEMA (4) Hypokalemia Current Visit: Yes Status: Acute Assessment & Plan: -K 3.3 on admission, replaced - now at 3.9 -Continue telemetry and repeat CMP; maintain K goal >4 while on diuresis Code(s): E87.6 - HYPOKALEMIA (5) A-fib Current Visit: Yes Status: Acute Assessment & Plan: - Pt now with DVT stated above- please see plan- will continue with coumadin/lovenox bridge -Telemetry monitoring Code(s): I48.91 - UNSPECIFIED ATRIAL FIBRILLATION (6) Shortness of breath Current Visit: Yes Status: Acute Assessment & Plan: -On 2 L NC with sats 9798% (reported new baseline) -Home oxygen already arranged -Treat underlying pneumonia/effusions and reassess weaning potential Code(s): R06.02 - SHORTNESS OF BREATH (7) Leukocytosis Current Visit: No Status: Acute Assessment & Plan: -WBC at 16.2 -Prior hematology at outside hospital felt leukemoid reaction -Continue to trend CBC -see above txt for pneumonia -UA negative Code(s): D72.829 - ELEVATED WHITE BLOOD CELL COUNT, UNSPECIFIED (8) Thrombocytosis Current Visit: Yes Status: Acute Assessment & Plan: -Platelets 858 -Likely reactive (inflammation/infection and/or anemia); trend CBC -Continue VTE prophylaxis via coumadin/lovenox bridge (9) Anemia Current Visit: Yes Status: Acute Qualifiers: Anemia type: unspecified type Qualified Code(s): D64.9 - Anemia, unspecified Assessment & Plan: -Hgb 10.8 -Iron panel ordered; trend CBC Code(s): D64.9 - ANEMIA, UNSPECIFIED (10) CHF (congestive heart failure) Current Visit: Yes Status: Acute Assessment & Plan: -CT chest: new borderline cardiomegaly with right effusion and diminished left effusion/atelectasis; concern for cardiac decompensation/CHF vs fluid overload -BNP 1750 -Lasix 40 mg IV BID -Strict I&O, daily weights, 2 L fluid restriction -Telemetry and EKG -Maintain K >4 and Mg >2; potassium replaced as needed -Echo from [facility] reviewed and uploaded in system VTE: coumadin/lovenox bridge PUD prevention: Pepcid Next of KIN: daughter D/C plan: 2-3 days Code status: Full Plan of care time: > 40minutes Code(s): I50.9 - HEART FAILURE, UNSPECIFIED
[2025-03-07 08:07] LABS: Hematocrit 34.2 % (34.1-44.9); Hemoglobin 10.8 g/dL (11.2-15.7); Mean Corpuscular Hemoglobin 30.1 pg (25.6-32.2); Mean Corpuscular Hgb Concent. 31.6 g/dL (32.2-35.5); Platelet Count 852 x10^3/uL (182-369); Red Blood Count 3.59 x10^6/uL (3.93-5.22); White Blood Count 16.2 x10^3/uL (3.98-10.04)
[2025-03-07 08:41] LABS: Calcium 8.7 mg/dL (8.4-10.2); Carbon Dioxide 31.0 mmol/L (22-30); Creatinine 1 0.64 mg/dL (0.52-1.04); EST GLOMERULAR FILTRATION RATE 90.4 ML/MIN; Glucose 125.0 mg/dL (74-106); Potassium 3.9 mmol/L (3.5-5.1); SGOT/AST 35.0 U/L (14-36); SGPT/ALT 32.0 U/L (0-35); Total Protein 6.1 g/dL (6.3-8.2)
--- NOTE | 2025-03-07 09:09 | XRAY ---
Indication: Progression pleural effusions. Comparison: March 04, 2025 Portable chest demonstrates continued minimal clearing left lung infiltrate/atelectasis/effusion with grossly stable small right effusion. Previous right upper lung ground-glass opacity has cleared. Heart not enlarged. No new cardiopulmonary abnormalities.
--- NOTE | 2025-03-07 11:06 | XRAY ---
Indication: Evaluate for bilateral thoracentesis. Ultrasound left and right lower back performed demonstrates small 5.4 x 2.1 cm pocket right effusion and 5.4 x 4.3 cm pocket left effusion.
--- NOTE | 2025-03-07 11:08 | XRAY ---
Indication: Bilateral edema. Two-dimensional sonogram and color Doppler imaging major venous vessels left and right leg performed. Comparison: None Right popliteal vein demonstrates tiny scattered nonoccluding thrombi. No thrombus seen in the remaining deep venous vessels left and right leg including greater saphenous vein. Veins demonstrate normal compressibility and normal venous waveforms. Impression: 1. Nonoccluding DVT right popliteal vein. 2. Left leg negative for DVT.
[2025-03-07] MEDS: PHARMACY DOSING REQUEST MC ONE ×2 (16:48→16:49)
[2025-03-07] MEDS: Klor Con PO SCH (17:34)
[2025-03-07] MEDS: ENOXAPARIN SODIUM SQ SCH ×2 (17:59→18:40)
[2025-03-07] MEDS: Coumadin 2 MG PO SCH (18:00)
[2025-03-07] MEDS: MEDICATION ON HOLD MC SCH (18:39)
[2025-03-07] MEDS ORDERED: ELIQUIS 2.5 MG TABLET PO SCH (22:00)
--- NOTE | 2025-03-08 05:17 | PCM.NOTE ---
Date and Time: 03/08/25 0516 Subjective Assessment: HPI: Ms. Vogt is a 79-year-old female presented from PCP office on 03/04/25 for worsening bilateral lower-extremity edema. Pt was seen at [facility] ED on 02/21/25 with a left pleural effusion and severe hyponatremia (Na 122) and was transferred to [facility], where she underwent thoracentesis with pleural fluid cultures growing Streptococcus species. During that admission she was also diagnosed with COVID-19 and treated with remdesivir; hematology evaluated leukocytosis and felt it represented a leukemoid reaction. She was discharged 03/03/25 on a 7-day course of clindamycin. Since discharge, family reported progressive leg edema; she was recently started on Eliquis for atrial fibrillation. On arrival this admission, she required 3 L oxygen and is now on [address] chest showed pleural effusions without loculation/cavitary lesion and new bilateral upper-lobe interstitial/alveolar opacities concerning for pneumonia/pneumonitis; PE evaluation limited by motion artifact with no obvious central PE. Right lateral decubitus CXR demonstrated layering bilateral pleural effusions with stable left itd-he-feifh lung infiltrate/atelectasis and borderline cardiomegaly. She was started on IV Zosyn, steroids (Solu-Medrol), and Xopenex, and given IV Lasix (now 40 mg IV BID) for suspected fluid overload/CHF contributing to effusions and edema (BNP 1750). WBC has improved (17.1 - 13.5). Potassium was low (3.3) and replaced, now resolved. CT abdomen/pelvis with and without contrast showed no concerning findings. She remains on 2 L NC with sats 9798%, which she reports is her new baseline since her recent hospitalization, and home oxygen is already arranged. Edema has improved but persists (+3 pitting). Bilateral lower-extremity venous duplex is scheduled; lung ultrasound is ordered to quantify pleural fluid and guide need for thoracentesis (would require holding Eliquis ?24 hours). Blood cultures x2 and sputum are prelim negative. Prior echocardiogram records from [place] are being obtained for review (not available until Friday due to cloud upload issue). She reports intermittent left-sided chest discomfort at prior chest tube site but otherwise feels better. 03/07/25: Met with patient bedside. Endorses improved BLE edema and dyspnea and is saturating 97% on 2 L nasal cannula. Will trial room air today with close monitoring. Chest ultrasound shows small bilateral pleural effusions, with a 5.4 2.1 cm pocket on the right and 5.4 4.3 cm on the left, not amenable to thoracentesis. Venous Doppler demonstrates a non-occlusive right popliteal DVT, with no left-sided DVT. Given DVT development while on Eliquis, this is felt to represent anticoagulation failure, and therapy has been transitioned to warfarin (Coumadin) with INR monitoring per protocol. WBC increased to 16.2, likely reactive in the setting of recent steroid administration in the ED. The patient remains afebrile and clinically improving. Overall, the patient is stable with improving respiratory status. Will continue to monitor oxygen needs, anticoagulation, and laboratory trends. 03/08/25: No overnight events noted. She reports improving dyspnea and improving lower- extremity edema on ongoing IV diuresis and respiratory treatments; she remains on supplemental oxygen at 2L and continues to require close monitoring of oxygen needs and volume status. Chest ultrasound demonstrates small bilateral pleural effusions not amenable to thoracentesis, so management remains medical. She is not yet appropriate for discharge as she continues to require IV antibiotics for ongoing treatment of pneumonia/pneumonitis, and she requires inpatient anticoagulation management with Lovenox bridging to therapeutic warfarin with serial INR monitoring given recent DVT while on DOAC. - Review of Systems Constitutional: No Symptoms Eyes: No Symptoms Ears, Nose, & Throat: No Symptoms Respiratory: Cough, Short Of Breath Cardiac: Edema (BLE +2 pitting) Abdominal/Gastrointestinal: No Symptoms Genitourinary Symptoms: No Symptoms Musculoskeletal: No Symptoms Neurological: No Symptoms Psychological: No Symptoms Endocrine: No Symptoms Hematologic/Lymphatic: No Symptoms Immunological/Allergic: No Symptoms Objective Exam General Appearance: no apparent distress Neurologic Exam: alert, oriented x 3, cooperative Skin Exam: normal color Eye Exam: PERRL Ears, Nose, Throat Exam: normal ENT inspection Neck Exam: normal inspection Respiratory Exam: diminished breath sounds, crackles/rales Cardiovascular Exam: regular rate/rhythm, normal heart sounds Gastrointestinal/Abdomen Exam: soft, normal bowel sounds Extremity Exam: swelling (BLE +2 pitting) Back Exam: normal inspection Pelvic Exam: deferred Rectal Exam: deferred Objective Data Vital Signs: Vital Signs - 24 hr Temp Pulse Resp BP Pulse Ox 03/08/25 03:56 97.9 F 63 16 144/61 98 03/07/25 23:52 98.3 F 68 16 126/61 97 03/07/25 19:49 97.7 F 80 25 H 133/61 96 03/07/25 17:18 75 16 99 03/07/25 16:00 96.8 F 70 20 149/70 99 03/07/25 11:51 97.6 F 71 16 131/61 98 03/07/25 07:00 78 16 99 03/07/25 06:43 97.2 F 79 18 156/69 97 Pain Assessment - Last Documented Pain Intensity 0 Pain Scale Used 0-10 Pain Scale Intake and Output: Intake & Output 03/05/25 03/06/25 03/07/25 03/08/25 11:59 11:59 11:59 11:59 Intake Total 1180 850 920 700 Output Total 2300 4100 2300 2750 Balance -6710 -5668 -3950 -0 Weight 61.3 kg 61.3 kg 56.2 kg Lab Results: Lab Results-Last 24 Hours 03/07/25 03/07/25 03/07/25 Range/Units 04:00 04:00 07:50 WBC 16.2 H (3.98-10.04) x10^3/uL RBC 3.59 L (3.93-5.22) x10^6/uL Hgb 10.8 L (11.2-15.7) g/dL Hct 34.2 (34.1-44.9) % MCV 95.3 H (79.4-94.8) fL MCH 30.1 (25.6-32.2) pg MCHC 31.6 L (32.2-35.5) g/dL RDW 13.8 (11.7-14.4) % Plt Count 852 H (182-369) x10^3/uL MPV 8.7 L (9.4-12.3) fL Sodium (135-145) mmol/L Potassium (3.5-5.1) mmol/L Chloride (98-107) mmol/L Carbon Dioxide (22-30) mmol/L Anion Gap (5-15) MEQ/L BUN (7-17) mg/dL Creatinine (0.52-1.04) mg/dL Estimated GFR ML/MIN Glucose (74-106) mg/dL Calcium (8.4-10.2) mg/dL Magnesium 2.1 (1.6-2.3) mg/dL Total Bilirubin (0.2-1.3) mg/dL AST (14-36) U/L ALT (0-35) U/L Alkaline Phosphatase (38-126) U/L Serum Total Protein (6.3-8.2) g/dL Albumin (3.5-5.0) g/dL Free T4 (0.78-2.19) ng/dL TSH 3rd Generation 6.720 H (0.470-4.680) mIU/L 03/07/25 03/07/25 Range/Units 07:50 08:00 WBC (3.98-10.04) x10^3/uL RBC (3.93-5.22) x10^6/uL Hgb (11.2-15.7) g/dL Hct (34.1-44.9) % MCV (79.4-94.8) fL MCH (25.6-32.2) pg MCHC (32.2-35.5) g/dL RDW (11.7-14.4) % Plt Count (182-369) x10^3/uL MPV (9.4-12.3) fL Sodium 135 (135-145) mmol/L Potassium 3.9 (3.5-5.1) mmol/L Chloride 96 L (98-107) mmol/L Carbon Dioxide 31 H (22-30) mmol/L Anion Gap 12.1 (5-15) MEQ/L BUN 15 (7-17) mg/dL Creatinine 0.64 (0.52-1.04) mg/dL Estimated GFR 90.4 ML/MIN Glucose 125 H (74-106) mg/dL Calcium 8.7 (8.4-10.2) mg/dL Magnesium (1.6-2.3) mg/dL Total Bilirubin 0.60 (0.2-1.3) mg/dL AST 35 (14-36) U/L ALT 32 (0-35) U/L Alkaline Phosphatase 128 H (38-126) U/L Serum Total Protein 6.1 L (6.3-8.2) g/dL Albumin 3.2 L (3.5-5.0) g/dL Free T4 1.41 (0.78-2.19) ng/dL TSH 3rd Generation (0.470-4.680) mIU/L Radiology Exams: Radiology Procedures Category Date Time Status CHEST 1 VIEW (PORTABLE) Routine Exams 03/07/25 08:00 Completed CHEST ULTRASOUND [US] Routine Exams 03/07/25 10:28 Completed VENOUS BILATERAL EXTREMITY [US] Routine Exams 03/07/25 08:00 Completed Medications: Medications Generic Name Dose Route Start Last Admin Trade Name Freq PRN Reason Stop Dose Admin Acetaminophen 650 mg 03/04/25 21:32 03/07/25 18:35 Acetaminophen 325 Mg Tablet PO 04/03/25 21:31 650 mg Q4H PRN PRN Administration PAIN, FEVER, HEADACHE Amiodarone HCl 200 mg 03/05/25 10:00 03/07/25 10:38 Amiodarone Hcl 200 Mg Tab PO 04/04/25 09:59 200 mg DAILY CRISTOFER Administration Cholecalciferol 2,000 unit 03/05/25 10:00 03/07/25 10:39 Cholecalciferol (Vitamin D3) 1000 Unit Tablet PO 04/04/25 09:59 2,000 unit DAILY CRISTOFER Administration Enoxaparin Sodium 60 mg 03/07/25 18:00 03/07/25 17:59 Enoxaparin Sodium 60 Mg/0.6 Ml Syringe SQ 04/06/25 17:59 60 mg Q12H CRISTOFER Administration Famotidine 20 mg 03/05/25 10:00 03/07/25 21:55 Famotidine 20 Mg Tablet PO 04/04/25 09:59 20 mg BID CRISTOFER Administration Furosemide 40 mg 03/05/25 17:00 03/07/25 17:29 Furosemide 40 Mg/4 Ml Vial IV 04/04/25 16:59 40 mg BID DIURETIC CRISTOFER Administration Levalbuterol HCl 1.25 mg 03/05/25 11:16 Levalbuterol Hcl 1.25 Mg/0.5 Ml Neb IH 04/04/25 11:14 Q6HPRN PRN SHORTNESS OF BREATH/WHEEZING Menthol 5.4 mg 03/05/25 14:33 03/05/25 21:26 Menthol 5.4 Mg Lozenge MM 04/04/25 14:22 5.4 mg Q2HPRN PRN Administration COUGH Ondansetron HCl 4 mg 03/04/25 21:32 03/05/25 10:22 Ondansetron Hcl 4 Mg/2 Ml Vial IV 04/03/25 21:31 4 mg Q6H PRN PRN Administration NAUSEA/VOMITING Viactiv - Patient 2 each 03/06/25 10:00 03/07/25 10:38 Own Med Misc PO 04/05/25 09:59 2 each DAILY CRISTOFER Administration Potassium Chloride 10 meq 03/07/25 15:45 03/07/25 17:34 Potassium Chloride Tab 10 Meq Tab PO 04/06/25 15:44 10 meq DAILY CRISTOFER Administration Warfarin Sodium 4 mg 03/07/25 18:00 03/07/25 18:00 Warfarin Sodium 2 Mg Tablet PO 04/06/25 17:59 4 mg COU CRISTOFER Administration Discontinued Medications Generic Name Dose Route Start Last Admin Trade Name Freq PRN Reason Stop Dose Admin Albuterol/Ipratropium 3 ml 03/04/25 21:59 Ipratropium/Albuterol Sulfate 3 Ml Ampul.Neb IH 04/03/25 21:58 Q4HPRN PRN SHORTNESS OF BREATH/WHEEZING Apixaban 5 mg 03/04/25 22:00 03/05/25 00:08 Apixaban 2.5 Mg Tablet PO 04/03/25 21:59 5 mg BID CRISTOFER Administration Apixaban 5 mg 03/05/25 10:00 03/05/25 21:09 Apixaban 2.5 Mg Tablet PO 04/04/25 09:59 5 mg BID CRISTOFER Administration Apixaban 5 mg 03/06/25 10:59 03/06/25 21:39 Apixaban 2.5 Mg Tablet PO 03/06/25 22:01 5 mg BID CRISTOFER Administration Apixaban 5 mg 03/07/25 22:00 Apixaban 2.5 Mg Tablet PO 04/06/25 21:59 BID CRISTOFER Calcium Carbonate 2 tab 03/05/25 10:00 03/05/25 09:45 Calcium Carbonate 500 Mg/Vitamin D 1 Tab Tablet PO 04/04/25 09:59 Not Given DAILY CRISTOFER Methylprednisolone Sodium 0 mg 03/05/25 10:00 03/06/25 21:39 Succinate 40 mg/ Sterile Water IV 04/04/25 09:59 40 mg 1 ml Q12HT CRISTOFER Administration Enoxaparin Sodium 60 mg 03/07/25 16:00 03/07/25 18:40 Enoxaparin Sodium 60 Mg/0.6 Ml Syringe SQ 04/06/25 15:59 Not Given BID CRISTOFER Furosemide 40 mg 03/04/25 18:14 03/04/25 18:40 Furosemide 40 Mg/4 Ml Vial IV 03/04/25 18:15 40 mg STAT ONE Administration Furosemide Confirm 03/04/25 18:36 Furosemide 40 Mg/4 Ml Vial Administered 03/04/25 18:37 Dose 40 mg .ROUTE .STK-MED ONE Furosemide 40 mg 03/04/25 21:32 03/04/25 22:46 Furosemide 40 Mg/4 Ml Vial IV 04/03/25 21:31 Not Given Q12H CRISTOFER Furosemide 40 mg 03/05/25 06:00 03/05/25 05:30 Furosemide 40 Mg/4 Ml Vial IV 04/04/25 05:59 40 mg Q12H CRISTOFER Administration Piperacillin Sod/Tazobactam 100 mls @ 200 mls/hr 03/04/25 18:14 03/04/25 19:09 Sod 3.375 gm/ Sodium Chloride IV 03/04/25 18:43 Infused STAT STA Infusion Sodium Chloride 500 mls @ 100 mls/hr 03/04/25 18:45 03/04/25 21:33 Sodium Chloride 0.9% 500 Ml IV 04/03/25 18:44 0 mls/hr .Q5H CRISTOFER Infusion Sodium Chloride Confirm 03/04/25 18:36 Sodium Chloride 0.9% Administered 03/04/25 18:37 Dose 100 mls @ ud .ROUTE .STK-MED ONE Sodium Chloride Confirm 03/04/25 18:36 Sodium Chloride 0.9% 500 Ml Administered 03/04/25 18:37 Dose 500 mls @ ud IV .STK-MED ONE Piperacillin Sod/Tazobactam 100 mls @ 200 mls/hr 03/05/25 00:00 03/08/25 00:13 Sod 3.375 gm/ Sodium Chloride IV 03/08/25 00:00 200 mls/hr Q6HT CRISTOFER Administration Sodium Chloride 1,000 mls @ 50 mls/hr 03/04/25 21:32 03/04/25 22:47 Sodium Chloride 0.9% 1000 Ml IV 04/03/25 21:31 Not Given .Q20H CRISTOFER Sodium Chloride Confirm 03/04/25 23:55 Sodium Chloride 0.9% Administered 03/04/25 23:56 Dose 100 mls @ ud .ROUTE .STK-MED ONE Sodium Chloride Confirm 03/05/25 05:13 Sodium Chloride 0.9% Administered 03/05/25 05:14 Dose 100 mls @ ud .ROUTE .STK-MED ONE Levalbuterol HCl 1.25 mg 03/05/25 13:00 Levalbuterol Hcl 1.25 Mg/0.5 Ml Neb IH 04/04/25 12:59 Q6HRT CRISTOFER Menthol 5.4 mg 03/05/25 14:23 Menthol 5.4 Mg Lozenge MM 04/04/25 14:22 PRN PRN COUGH Methylprednisolone Sodium Succinate Confirm 03/07/25 09:41 Methylprednisolone Sod Suc 40m 40 Mg/Ml Vial Administered 03/07/25 09:42 Dose 40 mg .ROUTE .STK-MED ONE Miscellaneous Information 1 [facility] [place] 03/07/25 10:00 03/07/25 18:39 Medication On Hold: See Note - Brendais 04/06/25 09:59 Not Given DAILY CRISTOFER Non-Formulary Medication 1 each 03/05/25 14:03 03/05/25 14:08 Pharmacy Dosing Request 03/05/25 14:04 1 each STAT ONE Administration Non-Formulary Medication 1 each 03/06/25 14:09 03/07/25 16:48 Pharmacy Dosing Request 03/06/25 14:10 Not Given STAT ONE Non-Formulary Medication 1 each 03/07/25 15:26 03/07/25 16:49 Pharmacy Dosing Request 03/07/25 15:27 Not Given STAT ONE Piperacillin Sod/Tazobactam Sod Confirm 03/04/25 18:36 Piperacillin/Tazobactam Sodium 3.375 Gm Vial Administered 03/04/25 18:37 Dose 3.375 gm IV .STK-MED ONE Piperacillin Sod/Tazobactam Sod Confirm 03/04/25 23:54 Piperacillin/Tazobactam Sodium 3.375 Gm Vial Administered 03/04/25 23:55 Dose 3.375 gm IV .STK-MED ONE Piperacillin Sod/Tazobactam Sod Confirm 03/05/25 05:13 Piperacillin/Tazobactam Sodium 3.375 Gm Vial Administered 03/05/25 05:14 Dose 3.375 gm IV .STK-MED ONE Potassium Bicarbonate 25 meq 03/05/25 07:45 03/05/25 11:58 Potassium Bicarbonate 25 Meq Tab PO 03/05/25 11:46 25 meq Q2H CRISTOFER Administration Potassium Bicarbonate 25 meq 03/06/25 15:03 03/06/25 15:27 Potassium Bicarbonate 25 Meq Tab PO 03/06/25 15:04 25 meq STAT ONE Administration Potassium Chloride 20 meq 03/04/25 18:10 03/04/25 18:41 Potassium Chloride Tab 10 Meq Tab PO 03/04/25 18:11 20 meq STAT ONE Administration Potassium Chloride Confirm 03/04/25 18:36 Potassium Chloride Tab 10 Meq Tab Administered 03/04/25 18:37 Dose 20 meq .ROUTE .STK-MED ONE Potassium Chloride 40 meq 03/06/25 13:53 03/06/25 15:24 Potassium Chloride Tab 10 Meq Tab PO 03/06/25 13:54 Not Given STAT ONE Multi-Disciplinary Progress Notes: Multi-Disciplinary Progress Notes 03/07/25 16:01 OT Plan of Care Note by Ian (L#[id number])Svetlana OT Eval OT Inpatient Eval and POC Start: 03/04/25 21:55 Freq: ONCE Status: Complete Protocol: Created 03/04/25 21:59 DS (Rec: 03/04/25 21:59 DS [facility]-[id number]) Document 03/07/25 15:53 KA (Rec: 03/07/25 16:01 KA [id number]) OT Evaluation Subjective PATIENT IS AGREEABLE TO OT EVALUATION WITH HER DAUGHTER PRESENT IN ROOM. Pertinent Past Medical History SEE PMH BELOW Prior Level of Function LIVES ALONE, INDEPENDENT WITH I/ADLS, HOME MANAGEMENT TASKS, AND LAWN CARE. SHE PARTICIPATES IN [place] 3X/WEEK [facility] Equipment at Home Prior to Admission Shower Chair Home Setup [id number] Date 03/07/25 Feeding WFL Grooming WFL Bathing Impaired Comment SBA Dressing WFL Toileting WFL Bed Mobility WFL Toilet Transfers WFL Functional Transfers WFL Range of Motion WFL Coordination WFL Functional Strength BUE STRENGTH: 4/5 MMT Functional Endurance FAIR(-): SYEDA PARTICIPATES IN UB STRENGTH ASSESSMENT, FUNCTIONAL MOBILITY ( APPROXIMATELY 30 FEET), TOILETING TASK, AND DON/DOFF SOCKS. SHE REPORTS HER FATIGUE LEVEL 5/10 DUE TO THE AMOUNT OF COMPANY, TESTING, AND ACTIVITY SHE HAS COMPLETED . Cognition ALERT AND ORIENTED X 4 Pain NO REPORTED PAIN. Objective Data/Standardized Assessment(s KATX INDEX OF INDEPENDENCE ) WITH ADLs: 5/6 indicating higher level of independence with ADLs. *PATIENT ON 2LPM OF SUPPLEMENTAL OXYGEN IN WHICH SHE MANAGED THE O2 LINE WHILE MOBILIZING IN ROOM. SHE REPORTS GOING TO THE BATHROOM WITHOUT SUPERVISION FROM NURSING STAFF. Comment PATIENT REPORTS FEELING BETTER AFTER LIGHT ACTIVITY WITHIN THE ROOM (HESISTANT AT BEGINNING OF EVALUATION). PATIENT REPORTS THAT SHE WAS HOLDING ONTO FURNITURE TO ENGAGE IN SOME [place] MOVES PRIOR TO CURRENT ADMISSION AT [facility]. OT Plan Of Care Date of Evaluation 03/07/25 Treatment Diagnosis WEAKNESS, PLEURAL EFFUSION Teaching Recipient Patient,Family Patient is Aware of Diagnosis and Yes Prognosis Patient is receptive to Plan of Care and Yes contributory towards OT goals Comment NO FURTHER SKILLED OCCUPATIONAL THERAPY INDICATED WITH RECOMMENDATION ON CONTINUED CARE WITH PHYSICAL THERAPY FOR ENDURANCE/ACTIVITY TOLERANCE. EDUCATION PROVIDED THIS DATE ON ACTIVITY PACING WITHIN DAILY ROUTINE IN WHICH SHE VOICES UNDERSTANDING. Medical & Surgical History Past Medical History Yes Neurological History No Pertinent History ENT History No Pertinent History Endocrine History No Pertinent History Respiratory History No Pertinent History Cardiac History No Pertinent History GI History GERD History Other Female Reproductive Disorders No Pertinent History Musculoskeletal History No Pertinent History Psycho-Social History No Pertinent History Other Medical History prolapsed bladder Past Surgical History Yes Hx Anesthesia Reactions No Hx Malignant Hyperthermia No Neurological Surgical History No Pertinent History ENT Surgical History No Pertinent History Respiratory Surgical History No Pertinent History Cardiac Surgical History No Pertinent History Gastrointestinal Surgical History Appendectomy Genitourinary Surgical History No Pertinent History Female Surgical History Hysterectomy Musculoskeletal Surgical History No Pertinent History Other Surgical History removal of cyst from ovary Alcohol None Drug Use none Hx Substance Use Treatment No Initialized on 03/07/25 16:01 - END OF NOTE Assessment/Plan (1) Pneumonia due to COVID-19 virus Current Visit: Yes Status: Acute Assessment & Plan: Recent COVID-19 infection (diagnosed ~3 weeks ago) -Completed remdesivir during prior hospitalization -No longer requires isolation -Supportive care; pneumonia management as above -CT chest: new patchy bilateral upper-lobe interstitial/alveolar opacities concerning for pneumonia/pneumonitis; no cavitary lesion; PE eval limited by respiratory artifact with no obvious central PE -CXR (right lateral decubitus): layering bilateral pleural effusions; stable left [id number] lung infiltrate/atelectasis; borderline cardiomegaly -Continue IV Zosyn -Trend CBC/CMP -Blood cultures x2 -sputum prelim with gram positive cocci and gram + rods -check MRSA nare -Repeat CXR showing continued minimal clearing left lung infiltrate/atelectasis/effusion with grossly stable small right effusion. Previous right upper lung ground-glass opacity has cleared. Heart not enlarged. No new cardiopulmonary abnormalities -Chest US with small 5.4 x 2.1 cm pocket right effusion and 5.4 x 4.3 cm pocket left effusion - no thoracentesis indicated 03/08: -Continue Zosyn; reassess daily for IV-to-PO eligibility once clearly stable and improving. -Continue bronchodilators/pulmonary hygiene, wean oxygen as tolerated with exertional checks. -Monitor fever curve, WBC trend, cultures, respiratory status; repeat imaging only if clinical change. -MRSA negative -sputum cult pending Code(s): U07.1 - COVID-19; J12.82 - PNEUMONIA DUE TO CORONAVIRUS DISEASE 2019 DVT -Venous Doppler demonstrates a non-occlusive right popliteal DVT, with no left- sided DVT. Given DVT development while on Eliquis, this is felt to represent anticoagulation failure, and therapy has been transitioned to warfarin (Coumadin) with INR monitoring per protocol. 03/08: -INR at 1.00- pharmacy managing lovenox /coumadin bridging (2) Bilateral pleural effusion Current Visit: Yes Status: Acute Assessment & Plan: -CT chest and CXR: layering bilateral pleural effusions; no loculation or cavitary lesion -Lung ultrasound ordered today to quantify effusion volume -Thoracentesis to be considered if clinically indicated (would need Eliquis held ?24 hours) -Repeat CXR today 03/08: -Chest ultrasound demonstrates small bilateral pleural effusions not amenable to thoracentesis, so management remains medical. Code(s): J90 - PLEURAL EFFUSION, NOT ELSEWHERE CLASSIFIED (3) Bilateral lower extremity edema Current Visit: Yes Status: Acute Assessment & Plan: -Severe edema from thighs to feet initially; improving but persistent -Continue Lasix 40 mg IV BID -Leg elevation; TEDs if tolerated -Bilateral lower-extremity venous duplex demonstrates a non-occlusive right popliteal DVT, with no left-sided DVT. Given DVT development while on Eliquis, this is felt to represent anticoagulation failure, and therapy has been tra nsitioned to warfarin (Coumadin) with INR monitoring per protocol Code(s): R60.0 - LOCALIZED EDEMA (4) Hypokalemia Current Visit: Yes Status: Acute Assessment & Plan: -K 3.3 on admission, replaced - now at 3.9 -Continue telemetry and repeat CMP; maintain K goal >4 while on diuresis 03/08: -Potassium at 3.5-continue supplementation Code(s): E87.6 - HYPOKALEMIA (5) A-fib Current Visit: Yes Status: Acute Assessment & Plan: - Pt now with DVT stated above- please see plan- will continue with coumadin/lovenox bridge -Telemetry monitoring Code(s): I48.91 - UNSPECIFIED ATRIAL FIBRILLATION (6) Shortness of breath Current Visit: Yes Status: Acute Assessment & Plan: -On 2 L NC with sats 9798% (reported new baseline) -Home oxygen already arranged -Treat underlying pneumonia/effusions and reassess weaning potential Code(s): R06.02 - SHORTNESS OF BREATH (7) Leukocytosis Current Visit: No Status: Acute Assessment & Plan: -WBC at 16.2 -Prior hematology at outside hospital felt leukemoid reaction -Continue to trend CBC -see above txt for pneumonia -UA negative 03/08: -WBC at 13.5<16.2- continue Zosyn Code(s): D72.829 - ELEVATED WHITE BLOOD CELL COUNT, UNSPECIFIED (8) Thrombocytosis Current Visit: Yes Status: Acute Assessment & Plan: -Platelets 858 -Likely reactive (inflammation/infection and/or anemia); trend CBC -Continue VTE prophylaxis via coumadin/lovenox bridge 03/08: -iron studies with Ferritin elevated at 530 with low TIBC 155, total iron 48, and transferrin saturation 31%, not consistent with iron deficiency and most consistent with inflammatory/acute phase response. -Plts downtrending at 742 -Has OP follow up with Dr. Garcia (hematology) (9) Anemia Current Visit: Yes Status: Acute Qualifiers: Anemia type: unspecified type Qualified Code(s): D64.9 - Anemia, unspecified Assessment & Plan: -Hgb 10.8 -Iron panel ordered; trend CBC 03/08: -Iron panel reviewed, hgb at 9.9 -Ferritin elevated at 530 with low TIBC 155, total iron 48, and transferrin saturation 31%, not consistent with iron deficiency and most consistent with inflammatory/acute phase response. Code(s): D64.9 - ANEMIA, UNSPECIFIED (10) CHF (congestive heart failure) Current Visit: Yes Status: Acute Assessment & Plan: -CT chest: new borderline cardiomegaly with right effusion and diminished left effusion/atelectasis; concern for cardiac decompensation/CHF vs fluid overload -BNP 1750 -Lasix 40 mg IV BID -Strict I&O, daily weights, 2 L fluid restriction -Telemetry and EKG -Maintain K >4 and Mg >2; potassium replaced as needed -Echo from [facility] reviewed and uploaded in system VTE: coumadin/lovenox bridge PUD prevention: Pepcid Next of KIN: daughter D/C plan: 2-3 days Code status: Full Plan of care time: > 40minutes Code(s): U07.1 - COVID-19; J12.82 - PNEUMONIA DUE TO CORONAVIRUS DISEASE 2019 (2) Bilateral pleural effusion Current Visit: Yes Status: Acute Code(s): J90 - PLEURAL EFFUSION, NOT ELSEWHERE CLASSIFIED (3) Bilateral lower extremity edema Current Visit: Yes Status: Acute Code(s): R60.0 - LOCALIZED EDEMA (4) Hypokalemia Current Visit: Yes Status: Acute Code(s): E87.6 - HYPOKALEMIA (5) A-fib Current Visit: Yes Status: Acute Code(s): I48.91 - UNSPECIFIED ATRIAL FIBRILLATION (6) Shortness of breath Current Visit: Yes Status: Acute Code(s): R06.02 - SHORTNESS OF BREATH (7) Leukocytosis Current Visit: No Status: Acute Code(s): D72.829 - ELEVATED WHITE BLOOD CELL COUNT, UNSPECIFIED (8) Thrombocytosis Current Visit: Yes Status: Acute (9) Anemia Current Visit: Yes Status: Acute Qualifiers: Anemia type: unspecified type Qualified Code(s): D64.9 - Anemia, unspecified Code(s): D64.9 - ANEMIA, UNSPECIFIED (10) CHF (congestive heart failure) Current Visit: Yes Status: Acute Code(s): I50.9 - HEART FAILURE, UNSPECIFIED (11) DVT (deep venous thrombosis) Current Visit: Yes Status: Acute Code(s): I82.409 - ACUTE EMBOLISM AND THOMBOS UNSP DEEP VN UNSP LOWER EXTREMITY
[2025-03-08 05:41] LABS: BASOPHIL % 0.1 % (0.1-1.2); Basophil (Absolute #) 0.01 x10^3/uL (0.01-0.08); Eosinophil (Absolute #) 0.03 x10^3/uL (0.04-0.36); Hematocrit 31.1 % (34.1-44.9); Hemoglobin 9.9 g/dL (11.2-15.7); IMMATURE GRAN # 0.12 x10^3u/L (0.001-0.031); IMMATURE GRAN % 0.9 % (0.001-0.429); Lymphocyte (Absolute #) 1.22 x10^3/uL (1.18-3.74); Mean Corpuscular Hemoglobin 30.2 pg (25.6-32.2); Mean Corpuscular Hgb Concent. 31.8 g/dL (32.2-35.5); Monocyte (Absolute #) 0.72 x10^3/uL (0.24-0.86); NUCLEATED RBC # 0.00 x10^3u/L (0.00-0.012); NUCLEATED RBC % 0.0 % (0.00-0.2); Platelet Count 742 x10^3/uL (182-369); Red Blood Count 3.28 x10^6/uL (3.93-5.22); White Blood Count 13.5 x10^3/uL (3.98-10.04)
[2025-03-08 05:58] LABS: Calcium 8.3 mg/dL (8.4-10.2); Carbon Dioxide 33.0 mmol/L (22-30); Creatinine 1 0.71 mg/dL (0.52-1.04); EST GLOMERULAR FILTRATION RATE 87.0 ML/MIN; Glucose 92.0 mg/dL (74-106); Potassium 3.5 mmol/L (3.5-5.1); SGOT/AST 31.0 U/L (14-36); SGPT/ALT 27.0 U/L (0-35); Total Protein 5.7 g/dL (6.3-8.2)
[2025-03-08 06:12] LABS: INR 1.0 (0.8-3.0); PROTIME 11.2 SECONDS (9.4-12.5)
[2025-03-09 05:08] LABS: BASOPHIL % 0.1 % (0.1-1.2); Basophil (Absolute #) 0.01 x10^3/uL (0.01-0.08); Eosinophil (Absolute #) 0.10 x10^3/uL (0.04-0.36); Hematocrit 33.6 % (34.1-44.9); Hemoglobin 10.3 g/dL (11.2-15.7); IMMATURE GRAN # 0.13 x10^3u/L (0.001-0.031); IMMATURE GRAN % 1.1 % (0.001-0.429); Lymphocyte (Absolute #) 1.05 x10^3/uL (1.18-3.74); Mean Corpuscular Hemoglobin 29.9 pg (25.6-32.2); Mean Corpuscular Hgb Concent. 30.7 g/dL (32.2-35.5); Monocyte (Absolute #) 0.58 x10^3/uL (0.24-0.86); NUCLEATED RBC # 0.00 x10^3u/L (0.00-0.012); NUCLEATED RBC % 0.0 % (0.00-0.2); Platelet Count 679 x10^3/uL (182-369); Red Blood Count 3.45 x10^6/uL (3.93-5.22); White Blood Count 11.5 x10^3/uL (3.98-10.04)
[2025-03-09 05:33] LABS: Calcium 8.4 mg/dL (8.4-10.2); Carbon Dioxide 33.0 mmol/L (22-30); Creatinine 1 0.7 mg/dL (0.52-1.04); EST GLOMERULAR FILTRATION RATE 88.5 ML/MIN; Glucose 91.0 mg/dL (74-106); SGOT/AST 28.0 U/L (14-36); SGPT/ALT 24.0 U/L (0-35); Total Protein 6.0 g/dL (6.3-8.2)
[2025-03-09 05:35] LABS: INR 1.08 (0.8-3.0); PROTIME 12.1 SECONDS (9.4-12.5)
[2025-03-09 05:38] LABS: Potassium 3.0 mmol/L (3.5-5.1)
[2025-03-09] MEDS ORDERED: Klor Con ONE (05:50)
[2025-03-09] MEDS: Klor Con PO ONE ×2 (05:52→09:48)
--- NOTE | 2025-03-09 07:20 | PCM.NOTE ---
Date and Time: 03/09/25 0720 Subjective Assessment: HPI: Ms. Vogt is a 79-year-old female presented from PCP office on 03/04/25 for worsening bilateral lower-extremity edema. Pt was seen at [facility] ED on 02/21/25 with a left pleural effusion and severe hyponatremia (Na 122) and was transferred to [facility], where she underwent thoracentesis with pleural fluid cultures growing Streptococcus species. During that admission she was also diagnosed with COVID-19 and treated with remdesivir; hematology evaluated leukocytosis and felt it represented a leukemoid reaction. She was discharged 03/03/25 on a 7-day course of clindamycin. Since discharge, family reported progressive leg edema; she was recently started on Eliquis for atrial fibrillation. On arrival this admission, she required 3 L oxygen and is now on [address] chest showed pleural effusions without loculation/cavitary lesion and new bilateral upper-lobe interstitial/alveolar opacities concerning for pneumonia/pneumonitis; PE evaluation limited by motion artifact with no obvious central PE. Right lateral decubitus CXR demonstrated layering bilateral pleural effusions with stable left [id number] lung infiltrate/atelectasis and borderline cardiomegaly. She was started on IV Zosyn, steroids (Solu-Medrol), and Xopenex, and given IV Lasix (now 40 mg IV BID) for suspected fluid overload/CHF contributing to effusions and edema (BNP 1750). WBC has improved (17.1 - 13.5). Potassium was low (3.3) and replaced, now resolved. CT abdomen/pelvis with and without contrast showed no concerning findings. She remains on 2 L NC with sats 9798%, which she reports is her new baseline since her recent hospitalization, and home oxygen is already arranged. Edema has improved but persists (+3 pitting). Bilateral lower-extremity venous duplex is scheduled; lung ultrasound is ordered to quantify pleural fluid and guide need for thoracentesis (would require holding Eliquis ?24 hours). Blood cultures x2 and sputum are prelim negative. Prior echocardiogram records from [place] are being obtained for review (not available until Friday due to cloud upload issue). She reports intermittent left-sided chest discomfort at prior chest tube site but otherwise feels better. 03/07/25: Met with patient bedside. Endorses improved BLE edema and dyspnea and is saturating 97% on 2 L nasal cannula. Will trial room air today with close monitoring. Chest ultrasound shows small bilateral pleural effusions, with a 5.4 2.1 cm pocket on the right and 5.4 4.3 cm on the left, not amenable to thoracentesis. Venous Doppler demonstrates a non-occlusive right popliteal DVT, with no left-sided DVT. Given DVT development while on Eliquis, this is felt to represent anticoagulation failure, and therapy has been transitioned to warfarin (Coumadin) with INR monitoring per protocol. WBC increased to 16.2, likely reactive in the setting of recent steroid administration in the ED. The patient remains afebrile and clinically improving. Overall, the patient is stable with improving respiratory status. Will continue to monitor oxygen needs, anticoagulation, and laboratory trends. 03/08/25: No overnight events noted. She reports improving dyspnea and improving lower- extremity edema on ongoing IV diuresis and respiratory treatments; she remains on supplemental oxygen at 2L and continues to require close monitoring of oxygen needs and volume status. Chest ultrasound demonstrates small bilateral pleural effusions not amenable to thoracentesis, so management remains medical. She is not yet appropriate for discharge as she continues to require IV antibiotics for ongoing treatment of pneumonia/pneumonitis, and she requires inpatient anticoagulation management with Lovenox bridging to therapeutic warfarin with serial INR monitoring given recent DVT while on DOAC. 03/09/2025: Patient said she felt good this morning. Her lower extremity edema has almost completely resolved and she is saturating well on 2L nasal oxygen. She would benefit from continued IV antibiotics for pneumonia given recurrent hospitalization as well as bridging with lovenox/coumadin given new DVT and eliquis failure. - Review of Systems Constitutional: No Fever, No Chills Eyes: No Symptoms Ears, Nose, & Throat: No Symptoms Respiratory: No Cough, No Short Of Breath Cardiac: No Chest Pain, No Edema, No Syncope Abdominal/Gastrointestinal: No Abdominal Pain, No Nausea, No Vomiting, No Diarrhea Genitourinary Symptoms: No Dysuria Musculoskeletal: No Back Pain, No Neck Pain Skin: No Rash Neurological: No Dizziness, No Focal Weakness, No Sensory Changes Psychological: No Symptoms Endocrine: No Symptoms Hematologic/Lymphatic: No Symptoms Immunological/Allergic: No Symptoms Objective Exam General Appearance: no apparent distress, alert Neurologic Exam: alert, oriented x 3, cooperative, normal mood/affect, nml cerebellar function, sensation nml, No motor deficits Skin Exam: normal color, warm, dry Eye Exam: PERRL, EOMI, eyes nml inspection Ears, Nose, Throat Exam: normal ENT inspection, pharynx normal, moist mucous membranes Neck Exam: normal inspection, non-tender, supple, full range of motion Respiratory Exam: normal breath sounds, lungs clear, No respiratory distress Cardiovascular Exam: regular rate/rhythm, normal heart sounds Gastrointestinal/Abdomen Exam: soft, No tenderness, No mass Extremity Exam: normal inspection, normal range of motion, No pedal edema Objective Data Vital Signs: Vital Signs - 24 hr Temp Pulse Resp BP Pulse Ox 03/09/25 03:00 98.0 F 69 16 136/60 95 03/08/25 23:00 74 16 171/72 98 03/08/25 19:00 97.8 F 76 16 143/67 99 03/08/25 15:00 98.3 F 72 16 117/58 99 03/08/25 11:00 98.3 F 70 16 107/53 99 03/08/25 07:24 74 16 95 Pain Assessment - Last Documented Pain Intensity 0 Pain Scale Used 0-10 Pain Scale Intake and Output: Intake & Output 03/06/25 03/07/25 03/08/25 03/09/25 11:59 11:59 11:59 11:59 Intake Total 850 643 308 6228 Output Total 4100 2300 2750 950 Balance -3250 -1380 -1810 100 Weight 61.3 kg 56.2 kg 56.7 kg 57 kg Lab Results: Lab Results-Last 24 Hours 03/08/25 03/09/25 03/09/25 Range/Units 08:29 04:41 04:41 WBC 11.5 H (3.98-10.04) x10^3/uL RBC 3.45 L (3.93-5.22) x10^6/uL Hgb 10.3 L (11.2-15.7) g/dL Hct 33.6 L (34.1-44.9) % MCV 97.4 H (79.4-94.8) fL MCH 29.9 (25.6-32.2) pg MCHC 30.7 L (32.2-35.5) g/dL RDW 13.9 (11.7-14.4) % Plt Count 679 H (182-369) x10^3/uL MPV 8.8 L (9.4-12.3) fL Gran % 83.8 H (34.0-71.1) % Immature Gran % (Auto) 1.1 H (0.001-0.429) % Nucleat RBC Rel Count 0.0 (0.00-0.2) % Eos # (Auto) 0.10 (0.04-0.36) x10^3/uL Immature Gran # (Auto) 0.13 H (0.001-0.031) x10^3u/L Absolute Lymphs (auto) 1.05 L (1.18-3.74) x10^3/uL Absolute Monos (auto) 0.58 (0.24-0.86) x10^3/uL Absolute Nucleated RBC 0.00 (0.00-0.012) x10^3u/L Lymphocytes % 9.1 L (19.3-51.7) % Monocytes % 5.0 (4.7-12.5) % Eosinophils % 0.9 (0.7-5.8) % Basophils % 0.1 (0.1-1.2) % Absolute Granulocytes 9.63 H (1.56-6.13) x10^3/uL Basophils # 0.01 (0.01-0.08) x10^3/uL PT (9.4-12.5) SECONDS INR (0.8-3.0) Sodium 135 (135-145) mmol/L Potassium 3.0 L* (3.5-5.1) mmol/L Chloride 97 L (98-107) mmol/L Carbon Dioxide 33 H (22-30) mmol/L Anion Gap 8.0 (5-15) MEQ/L BUN 14 (7-17) mg/dL Creatinine 0.70 (0.52-1.04) mg/dL Estimated GFR 88.5 ML/MIN Glucose 91 (74-106) mg/dL Calcium 8.4 (8.4-10.2) mg/dL Magnesium 2.2 (1.6-2.3) mg/dL Total Bilirubin 0.40 (0.2-1.3) mg/dL AST 28 (14-36) U/L ALT 24 (0-35) U/L Alkaline Phosphatase 90 (38-126) U/L Serum Total Protein 6.0 L (6.3-8.2) g/dL Albumin 3.1 L (3.5-5.0) g/dL Nasal Screen MRSA (PCR) NOT DETECTED (NEGATIVE) 03/09/25 03/09/25 Range/Units 04:41 05:39 WBC (3.98-10.04) x10^3/uL RBC (3.93-5.22) x10^6/uL Hgb (11.2-15.7) g/dL Hct (34.1-44.9) % MCV (79.4-94.8) fL MCH (25.6-32.2) pg MCHC (32.2-35.5) g/dL RDW (11.7-14.4) % Plt Count (182-369) x10^3/uL MPV (9.4-12.3) fL Gran % (34.0-71.1) % Immature Gran % (Auto) (0.001-0.429) % Nucleat RBC Rel Count (0.00-0.2) % Eos # (Auto) (0.04-0.36) x10^3/uL Immature Gran # (Auto) (0.001-0.031) x10^3u/L Absolute Lymphs (auto) (1.18-3.74) x10^3/uL Absolute Monos (auto) (0.24-0.86) x10^3/uL Absolute Nucleated RBC (0.00-0.012) x10^3u/L Lymphocytes % (19.3-51.7) % Monocytes % (4.7-12.5) % Eosinophils % (0.7-5.8) % Basophils % (0.1-1.2) % Absolute Granulocytes (1.56-6.13) x10^3/uL Basophils # (0.01-0.08) x10^3/uL PT 12.1 (9.4-12.5) SECONDS INR 1.08 (0.8-3.0) Sodium (135-145) mmol/L Potassium (3.5-5.1) mmol/L Chloride (98-107) mmol/L Carbon Dioxide (22-30) mmol/L Anion Gap (5-15) MEQ/L BUN (7-17) mg/dL Creatinine (0.52-1.04) mg/dL Estimated GFR ML/MIN Glucose (74-106) mg/dL Calcium (8.4-10.2) mg/dL Magnesium 2.2 (1.6-2.3) mg/dL Total Bilirubin (0.2-1.3) mg/dL AST (14-36) U/L ALT (0-35) U/L Alkaline Phosphatase (38-126) U/L Serum Total Protein (6.3-8.2) g/dL Albumin (3.5-5.0) g/dL Nasal Screen MRSA (PCR) (NEGATIVE) Radiology Exams: Radiology Procedures Category Date Time Status CHEST 1 VIEW (PORTABLE) Routine Exams 03/07/25 08:00 Completed CHEST ULTRASOUND [US] Routine Exams 03/07/25 10:28 Completed VENOUS BILATERAL EXTREMITY [US] Routine Exams 03/07/25 08:00 Completed Medications: Medications Generic Name Dose Route Start Last Admin Trade Name Freq PRN Reason Stop Dose Admin Acetaminophen 650 mg 03/04/25 21:32 03/09/25 05:51 Acetaminophen 325 Mg Tablet PO 04/03/25 21:31 650 mg Q4H PRN PRN Administration PAIN, FEVER, HEADACHE Amiodarone HCl 200 mg 03/05/25 10:00 03/08/25 09:29 Amiodarone Hcl 200 Mg Tab PO 04/04/25 09:59 200 mg DAILY CRISTOFER Administration Cholecalciferol 2,000 unit 03/05/25 10:00 03/08/25 09:27 Cholecalciferol (Vitamin D3) 1000 Unit Tablet PO 04/04/25 09:59 2,000 unit DAILY CRISTOFER Administration Enoxaparin Sodium 60 mg 03/07/25 18:00 03/09/25 05:32 Enoxaparin Sodium 60 Mg/0.6 Ml Syringe SQ 04/06/25 17:59 60 mg Q12H CRISTOFER Administration Famotidine 20 mg 03/05/25 10:00 03/08/25 21:53 Famotidine 20 Mg Tablet PO 04/04/25 09:59 20 mg BID CRISTOFER Administration Furosemide 40 mg 03/05/25 17:00 03/08/25 17:49 Furosemide 40 Mg/4 Ml Vial IV 04/04/25 16:59 40 mg BID DIURETIC CRISTOFER Administration Piperacillin Sod/Tazobactam 100 mls @ 200 mls/hr 03/08/25 08:00 03/09/25 05:32 Sod 3.375 gm/ Sodium Chloride IV 03/11/25 07:59 200 mls/hr Q6HT CRISTOFER Administration Levalbuterol HCl 1.25 mg 03/05/25 11:16 Levalbuterol Hcl 1.25 Mg/0.5 Ml [facility] 04/04/25 11:14 Q6HPRN PRN SHORTNESS OF BREATH/WHEEZING Menthol 5.4 mg 03/05/25 14:33 03/05/25 21:26 Menthol 5.4 Mg Lozenge MM 04/04/25 14:22 5.4 mg Q2HPRN PRN Administration COUGH Ondansetron HCl 4 mg 03/04/25 21:32 03/05/25 10:22 Ondansetron Hcl 4 Mg/2 Ml Vial IV 04/03/25 21:31 4 mg Q6H PRN PRN Administration NAUSEA/VOMITING Viactiv - Patient 2 each 03/06/25 10:00 03/08/25 09:39 Own Med Misc PO 04/05/25 09:59 2 each DAILY CRISTOFER Administration Potassium Chloride 10 meq 03/07/25 15:45 03/08/25 09:29 Potassium Chloride Tab 10 Meq Tab PO 04/06/25 15:44 10 meq DAILY CRISTOFER Administration Potassium Chloride 40 meq 03/09/25 10:00 Potassium Chloride Tab 10 Meq Tab PO 03/09/25 10:01 DAILY ONE Warfarin Sodium 4 mg 03/07/25 18:00 03/08/25 17:47 Warfarin Sodium 2 Mg Tablet PO 04/06/25 17:59 4 mg COU CRISTOFER Administration Discontinued Medications Generic Name Dose Route Start Last Admin Trade Name Freq PRN Reason Stop Dose Admin Albuterol/Ipratropium 3 ml 03/04/25 21:59 Ipratropium/Albuterol Sulfate 3 Ml Ampul.Former[facility] 04/03/25 21:58 Q4HPRN PRN SHORTNESS OF BREATH/WHEEZING Apixaban 5 mg 03/04/25 22:00 03/05/25 00:08 Apixaban 2.5 Mg Tablet PO 04/03/25 21:59 5 mg BID CRISTOFER Administration Apixaban 5 mg 03/05/25 10:00 03/05/25 21:09 Apixaban 2.5 Mg Tablet PO 04/04/25 09:59 5 mg BID CRISTOFER Administration Apixaban 5 mg 03/06/25 10:59 03/06/25 21:39 Apixaban 2.5 Mg Tablet PO 03/06/25 22:01 5 mg BID CRISTOFER Administration Apixaban 5 mg 03/07/25 22:00 Apixaban 2.5 Mg Tablet PO 04/06/25 21:59 BID CRISTOFER Calcium Carbonate 2 tab 03/05/25 10:00 03/05/25 09:45 Calcium Carbonate 500 Mg/Vitamin D 1 Tab Tablet PO 04/04/25 09:59 Not Given DAILY CRISTOFER Methylprednisolone Sodium 0 mg 03/05/25 10:00 03/06/25 21:39 Succinate 40 mg/ Sterile Water IV 04/04/25 09:59 40 mg 1 ml Q12HT CRISTOFER Administration Enoxaparin Sodium 60 mg 03/07/25 16:00 03/07/25 18:40 Enoxaparin Sodium 60 Mg/0.6 Ml Syringe SQ 04/06/25 15:59 Not Given BID CRISTOFER Furosemide 40 mg 03/04/25 18:14 03/04/25 18:40 Furosemide 40 Mg/4 Ml Vial IV 03/04/25 18:15 40 mg STAT ONE Administration Furosemide Confirm 03/04/25 18:36 Furosemide 40 Mg/4 Ml Vial Administered 03/04/25 18:37 Dose 40 mg .ROUTE .STK-MED ONE Furosemide 40 mg 03/04/25 21:32 03/04/25 22:46 Furosemide 40 Mg/4 Ml Vial IV 04/03/25 21:31 Not Given Q12H CRISTOFER Furosemide 40 mg 03/05/25 06:00 03/05/25 05:30 Furosemide 40 Mg/4 Ml Vial IV 04/04/25 05:59 40 mg Q12H CRISTOFER Administration Piperacillin Sod/Tazobactam 100 mls @ 200 mls/hr 03/04/25 18:14 03/04/25 19:09 Sod 3.375 gm/ Sodium Chloride IV 03/04/25 18:43 Infused STAT STA Infusion Sodium Chloride 500 mls @ 100 mls/hr 03/04/25 18:45 03/04/25 21:33 Sodium Chloride 0.9% 500 Ml IV 04/03/25 18:44 0 mls/hr .Q5H CRISTOFER Infusion Sodium Chloride Confirm 03/04/25 18:36 Sodium Chloride 0.9% Administered 03/04/25 18:37 Dose 100 mls @ ud .ROUTE .STK-MED ONE Sodium Chloride Confirm 03/04/25 18:36 Sodium Chloride 0.9% 500 Ml Administered 03/04/25 18:37 Dose 500 mls @ ud IV .STK-MED ONE Piperacillin Sod/Tazobactam 100 mls @ 200 mls/hr 03/05/25 00:00 03/08/25 00:13 Sod 3.375 gm/ Sodium Chloride IV 03/08/25 00:00 200 mls/hr Q6HT CRISTOFER Administration Sodium Chloride 1,000 mls @ 50 mls/hr 03/04/25 21:32 03/04/25 22:47 Sodium Chloride 0.9% 1000 Ml IV 04/03/25 21:31 Not Given .Q20H CRISTOFER Sodium Chloride Confirm 03/04/25 23:55 Sodium Chloride 0.9% Administered 03/04/25 23:56 Dose 100 mls @ ud .ROUTE .STK-MED ONE Sodium Chloride Confirm 03/05/25 05:13 Sodium Chloride 0.9% Administered 03/05/25 05:14 Dose 100 mls @ ud .ROUTE .STK-MED ONE Levalbuterol HCl 1.25 mg 03/05/25 13:00 Levalbuterol Hcl 1.25 Mg/0.5 Ml Neb IH 04/04/25 12:59 Q6HRT CRISTOFER Menthol 5.4 mg 03/05/25 14:23 Menthol 5.4 Mg Lozenge MM 04/04/25 14:22 PRN PRN COUGH Methylprednisolone Sodium Succinate Confirm 03/07/25 09:41 Methylprednisolone Sod Suc 40m 40 Mg/Ml Vial Administered 03/07/25 09:42 Dose 40 mg .ROUTE .STK-MED ONE Miscellaneous Information 1 misc 03/07/25 10:00 03/07/25 18:39 Medication On Hold: See Note - Bettina BENJAMIN 04/06/25 09:59 Not Given DAILY [facility] Non-Formulary Medication 1 each 03/05/25 14:03 03/05/25 14:08 Pharmacy Dosing Request 03/05/25 14:04 1 each STAT ONE Administration Non-Formulary Medication 1 each 03/06/25 14:09 03/07/25 16:48 Pharmacy Dosing Request 03/06/25 14:10 Not Given STAT ONE Non-Formulary Medication 1 each 03/07/25 15:26 03/07/25 16:49 Pharmacy Dosing Request 03/07/25 15:27 Not Given STAT ONE Piperacillin Sod/Tazobactam Sod Confirm 03/04/25 18:36 Piperacillin/Tazobactam Sodium 3.375 Gm Vial Administered 03/04/25 18:37 Dose 3.375 gm IV .STK-MED ONE Piperacillin Sod/Tazobactam Sod Confirm 03/04/25 23:54 Piperacillin/Tazobactam Sodium 3.375 Gm Vial Administered 03/04/25 23:55 Dose 3.375 gm IV .STK-MED ONE Piperacillin Sod/Tazobactam Sod Confirm 03/05/25 05:13 Piperacillin/Tazobactam Sodium 3.375 Gm Vial Administered 03/05/25 05:14 Dose 3.375 gm IV .STK-MED ONE Potassium Bicarbonate 25 meq 03/05/25 07:45 03/05/25 11:58 Potassium Bicarbonate 25 Meq Tab PO 03/05/25 11:46 25 meq Q2H CRISTOFER Administration Potassium Bicarbonate 25 meq 03/06/25 15:03 03/06/25 15:27 Potassium Bicarbonate 25 Meq Tab PO 03/06/25 15:04 25 meq STAT ONE Administration Potassium Chloride 20 meq 03/04/25 18:10 03/04/25 18:41 Potassium Chloride Tab 10 Meq Tab PO 03/04/25 18:11 20 meq STAT ONE Administration Potassium Chloride Confirm 03/04/25 18:36 Potassium Chloride Tab 10 Meq Tab Administered 03/04/25 18:37 Dose 20 meq .ROUTE .STK-MED ONE Potassium Chloride 40 meq 03/06/25 13:53 03/06/25 15:24 Potassium Chloride Tab 10 Meq Tab PO 03/06/25 13:54 Not Given STAT ONE Potassium Chloride 40 meq 03/09/25 05:47 03/09/25 05:52 Potassium Chloride Tab 10 Meq Tab PO 03/09/25 05:48 40 meq STAT ONE Administration Potassium Chloride Confirm 03/09/25 05:50 Potassium Chloride Tab 10 Meq Tab Administered 03/09/25 05:51 Dose 40 meq .ROUTE .STK-MED ONE Multi-Disciplinary Progress Notes: Multi-Disciplinary Progress Notes 03/08/25 13:47 Case Management Note by Nieves Ashley S/W PATIENT AGAIN TODAY- SHE CONTINUES TO DENY ANY NEW NEEDS AT TIME OF DC. SHE IS ALREADY SET UP WITH 2L/NC 07/10. SHE DECLINES HHC. SON IN LAW, YAEL, REPORTS THEY HAVE ENOUGH NURSES IN THE FAMILY TO DO LOVENOX INJECTIONS AT HOME IF NEEDED. NO NEW NEEDS IDENTIFIED AT THIS TIME Initialized on 03/08/25 13:47 - END OF NOTE Assessment/Plan (1) Pneumonia due to COVID-19 virus Current Visit: Yes Status: Acute Assessment & Plan: Current Visit: Yes Status: Acute Assessment & Plan: Recent COVID-19 infection (diagnosed ~3 weeks ago) -Completed remdesivir during prior hospitalization -No longer requires isolation -Supportive care; pneumonia management as above -CT chest: new patchy bilateral upper-lobe interstitial/alveolar opacities concerning for pneumonia/pneumonitis; no cavitary lesion; PE eval limited by respiratory artifact with no obvious central PE -CXR (right lateral decubitus): layering bilateral pleural effusions; stable left [id number] lung infiltrate/atelectasis; borderline cardiomegaly -Continue IV Zosyn -Trend CBC/CMP -Blood cultures x2 -sputum prelim with gram positive cocci and gram + rods -check MRSA nare -Repeat CXR showing continued minimal clearing left lung infiltrate/atelectasis/effusion with grossly stable small right effusion. Previous right upper lung ground-glass opacity has cleared. Heart not enlarged. No new cardiopulmonary abnormalities -Chest US with small 5.4 x 2.1 cm pocket right effusion and 5.4 x 4.3 cm pocket left effusion - no thoracentesis indicated 03/08: -Continue Zosyn; reassess daily for IV-to-PO eligibility once clearly stable and improving. -Continue bronchodilators/pulmonary hygiene, wean oxygen as tolerated with exe rtional checks. -Monitor fever curve, WBC trend, cultures, respiratory status; repeat imaging only if clinical change. -MRSA negative -sputum cult pending 03/09: -improving, continue zosyn DVT -Venous Doppler demonstrates a non-occlusive right popliteal DVT, with no left- sided DVT. Given DVT development while on Eliquis, this is felt to represent anticoagulation failure, and therapy has been transitioned to warfarin (Coumadin) with INR monitoring per protocol. 03/08: -INR at 1.00- pharmacy managing lovenox /coumadin bridging Code(s): U07.1 - COVID-19; J12.82 - PNEUMONIA DUE TO CORONAVIRUS DISEASE 2019 (2) Bilateral pleural effusion Current Visit: Yes Status: Acute Assessment & Plan: Current Visit: Yes Status: Acute Assessment & Plan: -CT chest and CXR: layering bilateral pleural effusions; no loculation or cavitary lesion -Lung ultrasound ordered today to quantify effusion volume -Thoracentesis to be considered if clinically indicated (would need Eliquis held ?24 hours) -Repeat CXR today 03/08: -Chest ultrasound demonstrates small bilateral pleural effusions not amenable to thoracentesis, so management remains medical. 03/09: continue diuresis for today Code(s): J90 - PLEURAL EFFUSION, NOT ELSEWHERE CLASSIFIED (3) Bilateral lower extremity edema Current Visit: Yes Status: Acute Assessment & Plan: Current Visit: Yes Status: Acute Assessment & Plan: -Severe edema from thighs to feet initially; improving but persistent -Continue Lasix 40 mg IV BID -Leg elevation; TEDs if tolerated -Bilateral lower-extremity venous duplex demonstrates a non-occlusive right popliteal DVT, with no left-sided DVT. Given DVT development while on Eliquis, this is felt to represent anticoagulation failure, and therapy has been transitioned to warfarin (Coumadin) with INR monitoring per protocol 03/09: recent echo showed hyperdynamic systolic function with EF 65-70%. Patient improving with diuresis, continue for today. Possible switch to oral tomorrow. Code(s): R60.0 - LOCALIZED EDEMA (4) Hypokalemia Current Visit: Yes Status: Acute Assessment & Plan: Current Visit: Yes Status: Acute Assessment & Plan: -K 3.3 on admission, replaced - now at 3.9 -Continue telemetry and repeat CMP; maintain K goal >4 while on diuresis 03/08: -Potassium at 3.5-continue supplementation Code(s): E87.6 - HYPOKALEMIA 03/09: K 3.0 today. Repletion ordered. Code(s): E87.6 - HYPOKALEMIA (5) A-fib Current Visit: Yes Status: Acute Assessment & Plan: Current Visit: Yes Status: Acute Assessment & Plan: - Pt now with DVT stated above- please see plan- will continue with coumadin/lovenox bridge -Telemetry monitoring Code(s): I48.91 - UNSPECIFIED ATRIAL FIBRILLATION Code(s): I48.91 - UNSPECIFIED ATRIAL FIBRILLATION (6) Shortness of breath Current Visit: Yes Status: Acute Assessment & Plan: Current Visit: Yes Status: Acute Assessment & Plan: -On 2 L NC with sats 9798% (reported new baseline) -Home oxygen already arranged -Treat underlying pneumonia/effusions and reassess weaning potential Code(s): R06.02 - SHORTNESS OF BREATH Code(s): R06.02 - SHORTNESS OF BREATH (7) Leukocytosis Current Visit: No Status: Acute Assessment & Plan: Current Visit: No Status: Acute Assessment & Plan: -WBC at 16.2 -Prior hematology at outside hospital felt leukemoid reaction -Continue to trend CBC -see above txt for pneumonia -UA negative 03/08: -WBC at 13.5<16.2- continue Zosyn Code(s): D72.829 - ELEVATED WHITE BLOOD CELL COUNT, UNSPECIFIED Code(s): D72.829 - ELEVATED WHITE BLOOD CELL COUNT, UNSPECIFIED (8) Thrombocytosis Current Visit: Yes Status: Acute Assessment & Plan: Current Visit: Yes Status: Acute Assessment & Plan: -Platelets 858 -Likely reactive (inflammation/infection and/or anemia); trend CBC -Continue VTE prophylaxis via coumadin/lovenox bridge 03/08: -iron studies with Ferritin elevated at 530 with low TIBC 155, total iron 48, and transferrin saturation 31%, not consistent with iron deficiency and most consistent with inflammatory/acute phase response. -Plts downtrending at 742 -Has OP follow up with Dr. Garcia (hematology) 03/09: continues to downtrend (9) Anemia Current Visit: Yes Status: Acute Qualifiers: Anemia type: unspecified type Qualified Code(s): D64.9 - Anemia, unspecified Assessment & Plan: Current Visit: Yes Status: Acute Qualifiers: Anemia type: unspecified type Qualified Code(s): D64.9 - Anemia, unspecified Assessment & Plan: -Hgb 10.8 -Iron panel ordered; trend CBC 03/08: -Iron panel reviewed, hgb at 9.9 -Ferritin elevated at 530 with low TIBC 155, total iron 48, and transferrin saturation 31%, not consistent with iron deficiency and most consistent with inflammatory/acute phase response. Code(s): D64.9 - ANEMIA, UNSPECIFIED Code(s): D64.9 - ANEMIA, UNSPECIFIED (10) CHF (congestive heart failure) Current Visit: Yes Status: Acute Assessment & Plan: Current Visit: Yes Status: Acute Assessment & Plan: -CT chest: new borderline cardiomegaly with right effusion and diminished left effusion/atelectasis; concern for cardiac decompensation/CHF vs fluid overload -BNP 1750 -Lasix 40 mg IV BID -Strict I&O, daily weights, 2 L fluid restriction -Telemetry and EKG -Maintain K >4 and Mg >2; potassium replaced as needed -Echo from [facility] reviewed and uploaded in system. Shows hyperdynamic LV systolic function with EF 65-70% VTE: coumadin/lovenox bridge PUD prevention: Pepcid Next of KIN: daughter D/C plan: 2-3 days Code status: Full Plan of care time: > 40minutes Code(s): U07.1 - COVID-19; J12.82 - PNEUMONIA DUE TO CORONAVIRUS DISEASE 2018 Code(s): I50.9 - HEART FAILURE, UNSPECIFIED Telemedicine Encounter - Telemedicine Encounter Telemedicine Encounter: "The entirety of this encounter was performed via Telemedicine" This visit was performed using real-time audio and video connection between my location and thepatients locationwith the assistance of a surrogateat the patients location. Written or verbal consent was obtained from the patient/guardian to [facility]. Any patient questions regarding the telemedicine interaction were [email or web address]
[2025-03-09] MEDS: Acidophilus TABLET PO SCH (17:20)
[2025-03-09] MEDS: Coumadin 2 MG PO SCH (17:21)
[2025-03-09 18:53] LABS: 027 TOX PROD PRESUMPTIVE NEGATIVE (NEGATIVE); TOXIGENIC C. DIFF ORG NEGATIVE (NEGATIVE)
[2025-03-10 06:01] LABS: BASOPHIL % 0.2 % (0.1-1.2); Basophil (Absolute #) 0.03 x10^3/uL (0.01-0.08); Eosinophil (Absolute #) 0.19 x10^3/uL (0.04-0.36); Hematocrit 37.4 % (34.1-44.9); Hemoglobin 11.6 g/dL (11.2-15.7); IMMATURE GRAN # 0.10 x10^3u/L (0.001-0.031); IMMATURE GRAN % 0.7 % (0.001-0.429); Lymphocyte (Absolute #) 1.04 x10^3/uL (1.18-3.74); Mean Corpuscular Hemoglobin 30.4 pg (25.6-32.2); Mean Corpuscular Hgb Concent. 31.0 g/dL (32.2-35.5); Monocyte (Absolute #) 0.51 x10^3/uL (0.24-0.86); NUCLEATED RBC # 0.00 x10^3u/L (0.00-0.012); NUCLEATED RBC % 0.0 % (0.00-0.2); Platelet Count 639 x10^3/uL (182-369); Red Blood Count 3.82 x10^6/uL (3.93-5.22); White Blood Count 13.8 x10^3/uL (3.98-10.04)
[2025-03-10 06:12] LABS: Calcium 9.0 mg/dL (8.4-10.2); Carbon Dioxide 34.0 mmol/L (22-30); Creatinine 1 0.75 mg/dL (0.52-1.04); EST GLOMERULAR FILTRATION RATE 81.4 ML/MIN; Glucose 100.0 mg/dL (74-106); Potassium 3.6 mmol/L (3.5-5.1); SGOT/AST 32.0 U/L (14-36); SGPT/ALT 27.0 U/L (0-35); Total Protein 6.9 g/dL (6.3-8.2)
[2025-03-10 06:25] LABS: INR 1.66 (0.8-3.0); PROTIME 18.2 SECONDS (9.4-12.5)
--- NOTE | 2025-03-10 07:45 | PCM.NOTE ---
Date and Time: 03/10/25 0745 Subjective Assessment: HPI: Ms. Vogt is a 79-year-old female presented from PCP office on 03/04/25 for worsening bilateral lower-extremity edema. Pt was seen at [facility] ED on 02/21/25 with a left pleural effusion and severe hyponatremia (Na 122) and was transferred to [facility], where she underwent thoracentesis with pleural fluid cultures growing Streptococcus species. During that admission she was also diagnosed with COVID-19 and treated with remdesivir; hematology evaluated leukocytosis and felt it represented a leukemoid reaction. She was discharged 03/03/25 on a 7-day course of clindamycin. Since discharge, family reported progressive leg edema; she was recently started on Eliquis for atrial fibrillation. On arrival this admission, she required 3 L oxygen and is now on [address] chest showed pleural effusions without loculation/cavitary lesion and new bilateral upper-lobe interstitial/alveolar opacities concerning for pneumonia/pneumonitis; PE evaluation limited by motion artifact with no obvious central PE. Right lateral decubitus CXR demonstrated layering bilateral pleural effusions with stable left [id number] lung infiltrate/atelectasis and borderline cardiomegaly. She was started on IV Zosyn, steroids (Solu-Medrol), and Xopenex, and given IV Lasix (now 40 mg IV BID) for suspected fluid overload/CHF contributing to effusions and edema (BNP 1750). WBC has improved (17.1 - 13.5). Potassium was low (3.3) and replaced, now resolved. CT abdomen/pelvis with and without contrast showed no concerning findings. She remains on 2 L NC with sats 9798%, which she reports is her new baseline since her recent hospitalization, and home oxygen is already arranged. Edema has improved but persists (+3 pitting). Bilateral lower-extremity venous duplex is scheduled; lung ultrasound is ordered to quantify pleural fluid and guide need for thoracentesis (would require holding Eliquis ?24 hours). Blood cultures x2 and sputum are prelim negative. Prior echocardiogram records from [place] are being obtained for review (not available until Friday due to cloud upload issue). She reports intermittent left-sided chest discomfort at prior chest tube site but otherwise feels better. 03/07/25: Met with patient bedside. Endorses improved BLE edema and dyspnea and is saturating 97% on 2 L nasal cannula. Will trial room air today with close monitoring. Chest ultrasound shows small bilateral pleural effusions, with a 5.4 2.1 cm pocket on the right and 5.4 4.3 cm on the left, not amenable to thoracentesis. Venous Doppler demonstrates a non-occlusive right popliteal DVT, with no left-sided DVT. Given DVT development while on Eliquis, this is felt to represent anticoagulation failure, and therapy has been transitioned to warfarin (Coumadin) with INR monitoring per protocol. WBC increased to 16.2, likely reactive in the setting of recent steroid administration in the ED. The patient remains afebrile and clinically improving. Overall, the patient is stable with improving respiratory status. Will continue to monitor oxygen needs, anticoagulation, and laboratory trends. 03/08/25: No overnight events noted. She reports improving dyspnea and improving lower- extremity edema on ongoing IV diuresis and respiratory treatments; she remains on supplemental oxygen at 2L and continues to require close monitoring of oxygen needs and volume status. Chest ultrasound demonstrates small bilateral pleural effusions not amenable to thoracentesis, so management remains medical. She is not yet appropriate for discharge as she continues to require IV antibiotics for ongoing treatment of pneumonia/pneumonitis, and she requires inpatient anticoagulation management with Lovenox bridging to therapeutic warfarin with serial INR monitoring given recent DVT while on DOAC. 03/09/2025: Patient said she felt good this morning. Her lower extremity edema has almost completely resolved and she is saturating well on 2L nasal oxygen. She would benefit from continued IV antibiotics for pneumonia given recurrent hospitalization as well as bridging with lovenox/coumadin given new DVT and eliquis failure. 03/10: continues to do well with no complaints. On room air at rest but requires oxygen with ambulation. Trace pedal edema and INR is 1.6 today. - Review of Systems Constitutional: No Fever, No Chills Eyes: No Symptoms Ears, Nose, & Throat: No Symptoms Respiratory: No Cough, No Short Of Breath Cardiac: No Chest Pain, No Edema, No Syncope Abdominal/Gastrointestinal: No Abdominal Pain, No Nausea, No Vomiting, No Diarrhea Genitourinary Symptoms: No Dysuria Musculoskeletal: No Back Pain, No Neck Pain Skin: No Rash Neurological: No Dizziness, No Focal Weakness, No Sensory Changes Psychological: No Symptoms Endocrine: No Symptoms Hematologic/Lymphatic: No Symptoms Immunological/Allergic: No Symptoms Objective Exam General Appearance: no apparent distress, alert Neurologic Exam: alert, oriented x 3, cooperative, normal mood/affect, nml cerebellar function, sensation nml, No motor deficits Skin Exam: normal color, warm, dry Eye Exam: PERRL, EOMI, eyes nml inspection Ears, Nose, Throat Exam: normal ENT inspection, pharynx normal, moist mucous membranes Neck Exam: normal inspection, non-tender, supple, full range of motion Respiratory Exam: normal breath sounds, lungs clear, No respiratory distress Cardiovascular Exam: regular rate/rhythm, normal heart sounds Gastrointestinal/Abdomen Exam: soft, No tenderness, No mass Extremity Exam: normal inspection, normal range of motion Back Exam: normal inspection, normal range of motion Pelvic Exam: deferred Rectal Exam: deferred Objective Data Vital Signs: Vital Signs - 24 hr Temp Pulse Resp BP Pulse Ox 03/10/25 07:30 97.5 F 72 16 107/55 94 L 03/10/25 06:57 74 16 94 L 03/10/25 04:00 97.0 F 76 18 129/60 95 03/09/25 23:00 97.8 F 80 18 109/53 98 03/09/25 19:12 100 03/09/25 19:00 98.2 F 79 19 108/53 98 03/09/25 15:00 97.6 F 74 17 125/60 100 03/09/25 11:00 97.1 F 78 16 120/59 97 Pain Assessment - Last Documented Pain Intensity 0 Pain Scale Used 0-10 Pain Scale Intake and Output: Intake & Output 03/07/25 03/08/25 03/09/25 03/10/25 11:59 11:59 11:59 11:59 Intake Total 846 628 7319 300 Output Total 2300 2750 950 2500 Balance -1380 -1810 340 -2200 Weight 56.2 kg 56.7 kg 57 kg 56.7 kg Lab Results: Lab Results-Last 24 Hours 03/09/25 03/10/25 03/10/25 Range/Units 18:11 05:28 05:28 WBC 13.8 H (3.98-10.04) x10^3/uL RBC 3.82 L (3.93-5.22) x10^6/uL Hgb 11.6 (11.2-15.7) g/dL Hct 37.4 (34.1-44.9) % MCV 97.9 H (79.4-94.8) fL MCH 30.4 (25.6-32.2) pg MCHC 31.0 L (32.2-35.5) g/dL RDW 14.0 (11.7-14.4) % Plt Count 639 H (182-369) x10^3/uL MPV 8.9 L (9.4-12.3) fL Gran % 86.4 H (34.0-71.1) % Immature Gran % (Auto) 0.7 H (0.001-0.429) % Nucleat RBC Rel Count 0.0 (0.00-0.2) % Eos # (Auto) 0.19 (0.04-0.36) x10^3/uL Immature Gran # (Auto) 0.10 H (0.001-0.031) x10^3u/L Absolute Lymphs (auto) 1.04 L (1.18-3.74) x10^3/uL Absolute Monos (auto) 0.51 (0.24-0.86) x10^3/uL Absolute Nucleated RBC 0.00 (0.00-0.012) x10^3u/L Lymphocytes % 7.6 L (19.3-51.7) % Monocytes % 3.7 L (4.7-12.5) % Eosinophils % 1.4 (0.7-5.8) % Basophils % 0.2 (0.1-1.2) % Absolute Granulocytes 11.90 H (1.56-6.13) x10^3/uL Basophils # 0.03 (0.01-0.08) x10^3/uL PT (9.4-12.5) SECONDS INR (0.8-3.0) Sodium 136 (135-145) mmol/L Potassium 3.6 (3.5-5.1) mmol/L Chloride 96 L (98-107) mmol/L Carbon Dioxide 34 H (22-30) mmol/L Anion Gap 10.3 (5-15) MEQ/L BUN 14 (7-17) mg/dL Creatinine 0.75 (0.52-1.04) mg/dL Estimated GFR 81.4 ML/MIN Glucose 100 (74-106) mg/dL Calcium 9.0 (8.4-10.2) mg/dL Magnesium 2.2 (1.6-2.3) mg/dL Total Bilirubin 0.40 (0.2-1.3) mg/dL AST 32 (14-36) U/L ALT 27 (0-35) U/L Alkaline Phosphatase 95 (38-126) U/L Serum Total Protein 6.9 (6.3-8.2) g/dL Albumin 3.7 (3.5-5.0) g/dL C. difficile Screen NEGATIVE (NEGATIVE) C.difficile 027-NAP1-B1 PRESUMPTIVE NEGATIVE (NEGATIVE) 03/10/25 Range/Units 05:28 WBC (3.98-10.04) x10^3/uL RBC (3.93-5.22) x10^6/uL Hgb (11.2-15.7) g/dL Hct (34.1-44.9) % MCV (79.4-94.8) fL MCH (25.6-32.2) pg MCHC (32.2-35.5) g/dL RDW (11.7-14.4) % Plt Count (182-369) x10^3/uL MPV (9.4-12.3) fL Gran % (34.0-71.1) % Immature Gran % (Auto) (0.001-0.429) % Nucleat RBC Rel Count (0.00-0.2) % Eos # (Auto) (0.04-0.36) x10^3/uL Immature Gran # (Auto) (0.001-0.031) x10^3u/L Absolute Lymphs (auto) (1.18-3.74) x10^3/uL Absolute Monos (auto) (0.24-0.86) x10^3/uL Absolute Nucleated RBC (0.00-0.012) x10^3u/L Lymphocytes % (19.3-51.7) % Monocytes % (4.7-12.5) % Eosinophils % (0.7-5.8) % Basophils % (0.1-1.2) % Absolute Granulocytes (1.56-6.13) x10^3/uL Basophils # (0.01-0.08) x10^3/uL PT 18.2 H (9.4-12.5) SECONDS INR 1.66 D (0.8-3.0) Sodium (135-145) mmol/L Potassium (3.5-5.1) mmol/L Chloride (98-107) mmol/L Carbon Dioxide (22-30) mmol/L Anion Gap (5-15) MEQ/L BUN (7-17) mg/dL Creatinine (0.52-1.04) mg/dL Estimated GFR ML/MIN Glucose (74-106) mg/dL Calcium (8.4-10.2) mg/dL Magnesium (1.6-2.3) mg/dL Total Bilirubin (0.2-1.3) mg/dL AST (14-36) U/L ALT (0-35) U/L Alkaline Phosphatase (38-126) U/L Serum Total Protein (6.3-8.2) g/dL Albumin (3.5-5.0) g/dL C. difficile Screen (NEGATIVE) C.difficile 027-NAP1-B1 (NEGATIVE) Medications: Medications Generic Name Dose Route Start Last Admin Trade Name Freq PRN Reason Stop Dose Admin Acetaminophen 650 mg 03/04/25 21:32 03/10/25 05:24 Acetaminophen 325 Mg Tablet PO 04/03/25 21:31 650 mg Q4H PRN PRN Administration PAIN, FEVER, HEADACHE Amiodarone HCl 200 mg 03/05/25 10:00 03/09/25 09:49 Amiodarone Hcl 200 Mg Tab PO 04/04/25 09:59 200 mg DAILY CRISTOFER Administration Cholecalciferol 2,000 unit 03/05/25 10:00 03/09/25 09:48 Cholecalciferol (Vitamin D3) 1000 Unit Tablet PO 04/04/25 09:59 2,000 unit DAILY CRISTOFER Administration Enoxaparin Sodium 60 mg 03/07/25 18:00 03/10/25 05:24 Enoxaparin Sodium 60 Mg/0.6 Ml Syringe SQ 04/06/25 17:59 60 mg Q12H CRISTOFER Administration Famotidine 20 mg 03/05/25 10:00 03/09/25 20:57 Famotidine 20 Mg Tablet PO 04/04/25 09:59 20 mg BID CRISTOFER Administration Furosemide 40 mg 03/05/25 17:00 03/09/25 17:20 Furosemide 40 Mg/4 Ml Vial IV 04/04/25 16:59 40 mg BID DIURETIC CRISTOFER Administration Piperacillin Sod/Tazobactam 100 mls @ 200 mls/hr 03/08/25 08:00 03/10/25 05:24 Sod 3.375 gm/ Sodium Chloride IV 03/11/25 07:59 200 mls/hr Q6HT CRISTOFER Administration Lactobacillus Acidophilus 1 tab 03/09/25 18:00 03/09/25 17:20 Lactobacillus Acidophilus 1 Tab Tablet PO 04/08/25 17:59 1 tab DAILY CRISTOFER Administration Levalbuterol HCl 1.25 mg 03/05/25 11:16 Levalbuterol Hcl 1.25 Mg/0.5 Ml Neb 04/04/25 11:14 Q6HPRN PRN SHORTNESS OF BREATH/WHEEZING Menthol 5.4 mg 03/05/25 14:33 03/05/25 21:26 Menthol 5.4 Mg Lozenge MM 04/04/25 14:22 5.4 mg Q2HPRN PRN Administration COUGH Ondansetron HCl 4 mg 03/04/25 21:32 03/05/25 10:22 Ondansetron Hcl 4 Mg/2 Ml Vial IV 04/03/25 21:31 4 mg Q6H PRN PRN Administration NAUSEA/VOMITING Viactiv - Patient 2 each 03/06/25 10:00 03/09/25 09:52 Own Med Misc PO 04/05/25 09:59 2 each DAILY CRISTOFER Administration Potassium Chloride 10 meq 03/07/25 15:45 03/09/25 09:38 Potassium Chloride Tab 10 Meq Tab PO 04/06/25 15:44 Not Given DAILY CRISTOFER Discontinued Medications Generic Name Dose Route Start Last Admin Trade Name Freq PRN Reason Stop Dose Admin Albuterol/Ipratropium 3 ml 03/04/25 21:59 Ipratropium/Albuterol Sulfate 3 Ml Ampul.Neb 04/03/25 21:58 Q4HPRN PRN SHORTNESS OF BREATH/WHEEZING Apixaban 5 mg 03/04/25 22:00 03/05/25 00:08 Apixaban 2.5 Mg Tablet PO 04/03/25 21:59 5 mg BID CRISTOFER Administration Apixaban 5 mg 03/05/25 10:00 03/05/25 21:09 Apixaban 2.5 Mg Tablet PO 04/04/25 09:59 5 mg BID CRISTOFER Administration Apixaban 5 mg 03/06/25 10:59 03/06/25 21:39 Apixaban 2.5 Mg Tablet PO 03/06/25 22:01 5 mg BID CRISTOFER Administration Apixaban 5 mg 03/07/25 22:00 Apixaban 2.5 Mg Tablet PO 04/06/25 21:59 BID CRISTOFER Calcium Carbonate 2 tab 03/05/25 10:00 03/05/25 09:45 Calcium Carbonate 500 Mg/Vitamin D 1 Tab Tablet PO 04/04/25 09:59 Not Given DAILY [facility] Methylprednisolone Sodium 0 mg 03/05/25 10:00 03/06/25 21:39 Succinate 40 mg/ Sterile Water IV 04/04/25 09:59 40 mg 1 ml Q12HT CRISTOFER Administration Enoxaparin Sodium 60 mg 03/07/25 16:00 03/07/25 18:40 Enoxaparin Sodium 60 Mg/0.6 Ml Syringe SQ 04/06/25 15:59 Not Given BID CRISTOFER Furosemide 40 mg 03/04/25 18:14 03/04/25 18:40 Furosemide 40 Mg/4 Ml Vial IV 03/04/25 18:15 40 mg STAT ONE Administration Furosemide Confirm 03/04/25 18:36 Furosemide 40 Mg/4 Ml Vial Administered 03/04/25 18:37 Dose 40 mg .ROUTE .STK-MED ONE Furosemide 40 mg 03/04/25 21:32 03/04/25 22:46 Furosemide 40 Mg/4 Ml Vial IV 04/03/25 21:31 Not Given Q12H CRISTOFER Furosemide 40 mg 03/05/25 06:00 03/05/25 05:30 Furosemide 40 Mg/4 Ml Vial IV 04/04/25 05:59 40 mg Q12H CRISTOFER Administration Piperacillin Sod/Tazobactam 100 mls @ 200 mls/hr 03/04/25 18:14 03/04/25 19:09 Sod 3.375 gm/ Sodium Chloride IV 03/04/25 18:43 Infused STAT STA Infusion Sodium Chloride 500 mls @ 100 mls/hr 03/04/25 18:45 03/04/25 21:33 Sodium Chloride 0.9% 500 Ml IV 04/03/25 18:44 0 mls/hr .Q5H CRISTOFER Infusion Sodium Chloride Confirm 03/04/25 18:36 Sodium Chloride 0.9% Administered 03/04/25 18:37 Dose 100 mls @ ud .ROUTE .STK-MED ONE Sodium Chloride Confirm 03/04/25 18:36 Sodium Chloride 0.9% 500 Ml Administered 03/04/25 18:37 Dose 500 mls @ ud IV .STK-MED ONE Piperacillin Sod/Tazobactam 100 mls @ 200 mls/hr 03/05/25 00:00 03/08/25 00:13 Sod 3.375 gm/ Sodium Chloride IV 03/08/25 00:00 200 mls/hr Q6HT CRISTOFER Administration Sodium Chloride 1,000 mls @ 50 mls/hr 03/04/25 21:32 03/04/25 22:47 Sodium Chloride 0.9% 1000 Ml IV 04/03/25 21:31 Not Given .Q20H CRISTOFER Sodium Chloride Confirm 03/04/25 23:55 Sodium Chloride 0.9% Administered 03/04/25 23:56 Dose 100 mls @ ud .ROUTE .STK-MED ONE Sodium Chloride Confirm 03/05/25 05:13 Sodium Chloride 0.9% Administered 03/05/25 05:14 Dose 100 mls @ ud .ROUTE .STK-MED ONE Levalbuterol HCl 1.25 mg 03/05/25 13:00 Levalbuterol Hcl 1.25 Mg/0.5 Ml Neb IH 04/04/25 12:59 Q6HRT CRISTOFER Menthol 5.4 mg 03/05/25 14:23 Menthol 5.4 Mg Lozenge MM 04/04/25 14:22 PRN PRN COUGH Methylprednisolone Sodium Succinate Confirm 03/07/25 09:41 Methylprednisolone Sod Suc 40m 40 Mg/Ml Vial Administered 03/07/25 09:42 Dose 40 mg .ROUTE .STK-MED ONE Miscellaneous Information 1 misc 03/07/25 10:00 03/07/25 18:39 Medication On Hold: See Note - Bettina BENJAMIN 04/06/25 09:59 Not Given DAILY [facility] Non-Formulary Medication 1 each 03/05/25 14:03 03/05/25 14:08 Pharmacy Dosing Request 03/05/25 14:04 1 each STAT ONE Administration Non-Formulary Medication 1 each 03/06/25 14:09 03/07/25 16:48 Pharmacy Dosing Request 03/06/25 14:10 Not Given STAT ONE Non-Formulary Medication 1 each 03/07/25 15:26 03/07/25 16:49 Pharmacy Dosing Request 03/07/25 15:27 Not Given STAT ONE Piperacillin Sod/Tazobactam Sod Confirm 03/04/25 18:36 Piperacillin/Tazobactam Sodium 3.375 Gm Vial Administered 03/04/25 18:37 Dose 3.375 gm IV .STK-MED ONE Piperacillin Sod/Tazobactam Sod Confirm 03/04/25 23:54 Piperacillin/Tazobactam Sodium 3.375 Gm Vial Administered 03/04/25 23:55 Dose 3.375 gm IV .STK-MED ONE Piperacillin Sod/Tazobactam Sod Confirm 03/05/25 05:13 Piperacillin/Tazobactam Sodium 3.375 Gm Vial Administered 03/05/25 05:14 Dose 3.375 gm IV .STK-MED ONE Potassium Bicarbonate 25 meq 03/05/25 07:45 03/05/25 11:58 Potassium Bicarbonate 25 Meq Tab PO 03/05/25 11:46 25 meq Q2H CRISTOFER Administration Potassium Bicarbonate 25 meq 03/06/25 15:03 03/06/25 15:27 Potassium Bicarbonate 25 Meq Tab PO 03/06/25 15:04 25 meq STAT ONE Administration Potassium Chloride 20 meq 03/04/25 18:10 03/04/25 18:41 Potassium Chloride Tab 10 Meq Tab PO 03/04/25 18:11 20 meq STAT ONE Administration Potassium Chloride Confirm 03/04/25 18:36 Potassium Chloride Tab 10 Meq Tab Administered 03/04/25 18:37 Dose 20 meq .ROUTE .STK-MED ONE Potassium Chloride 40 meq 03/06/25 13:53 03/06/25 15:24 Potassium Chloride Tab 10 Meq Tab PO 03/06/25 13:54 Not Given STAT ONE Potassium Chloride 40 meq 03/09/25 10:00 03/09/25 09:48 Potassium Chloride Tab 10 Meq Tab PO 03/09/25 10:01 40 meq DAILY ONE Administration Potassium Chloride 40 meq 03/09/25 05:47 03/09/25 05:52 Potassium Chloride Tab 10 Meq Tab PO 03/09/25 05:48 40 meq STAT ONE Administration Potassium Chloride Confirm 03/09/25 05:50 Potassium Chloride Tab 10 Meq Tab Administered 03/09/25 05:51 Dose 40 meq .ROUTE .STK-MED ONE Warfarin Sodium 4 mg 03/07/25 18:00 03/08/25 17:47 Warfarin Sodium 2 Mg Tablet PO 04/06/25 17:59 4 mg COU CRISTOFER Administration Warfarin Sodium 8 mg 03/09/25 18:00 03/09/25 17:21 Warfarin Sodium 2 Mg Tablet PO 03/09/25 18:01 8 mg COU CRISTOFER Administration Multi-Disciplinary Progress Notes: Multi-Disciplinary Progress Notes 03/09/25 15:39 Pharmacy Note by Srinivasan Ornelas Increase Warfarin to 8 mg today 1 dose only inr = 1.08 will re-evaluate tomorrow 03/10. kah Initialized on 03/09/25 15:39 - END OF NOTE Assessment/Plan (1) Pneumonia due to COVID-19 virus Current Visit: Yes Status: Acute Assessment & Plan: Recent COVID-19 infection (diagnosed ~3 weeks ago) -Completed remdesivir during prior hospitalization -No longer requires isolation -Supportive care; pneumonia management as above -CT chest: new patchy bilateral upper-lobe interstitial/alveolar opacities concerning for pneumonia/pneumonitis; no cavitary lesion; PE eval limited by respiratory artifact with no obvious central PE -CXR (right lateral decubitus): layering bilateral pleural effusions; stable left [id number] lung infiltrate/atelectasis; borderline cardiomegaly -Continue IV Zosyn -Trend CBC/CMP -Blood cultures x2 -sputum prelim with gram positive cocci and gram + rods -check MRSA nare -Repeat CXR showing continued minimal clearing left lung infiltrate/atelectasis/effusion with grossly stable small right effusion. Previous right upper lung ground-glass opacity has cleared. Heart not enlarged. No new cardiopulmonary abnormalities -Chest US with small 5.4 x 2.1 cm pocket right effusion and 5.4 x 4.3 cm pocket left effusion - no thoracentesis indicated 03/08: -Continue Zosyn; reassess daily for IV-to-PO eligibility once clearly stable and improving. -Continue bronchodilators/pulmonary hygiene, wean oxygen as tolerated with exertional checks. -Monitor fever curve, WBC trend, cultures, respiratory status; repeat imaging only if clinical change. -MRSA negative -sputum cult pending 03/09: -improving, continue zosyn 03/10: -continue zosyn Code(s): U07.1 - COVID-19; J12.82 - PNEUMONIA DUE TO CORONAVIRUS DISEASE 2019 (2) Bilateral pleural effusion Current Visit: Yes Status: Acute Assessment & Plan: -CT chest and CXR: layering bilateral pleural effusions; no loculation or cavitary lesion -Lung ultrasound ordered today to quantify effusion volume -Thoracentesis to be considered if clinically indicated (would need Eliquis held ?24 hours) -Repeat CXR today 03/08: -Chest ultrasound demonstrates small bilateral pleural effusions not amenable to thoracentesis, so management remains medical. 03/09: continue diuresis for today 03/10: continue IV diuresis for today. Can switch to oral tomorrow. Code(s): J90 - PLEURAL EFFUSION, NOT ELSEWHERE CLASSIFIED (3) Bilateral lower extremity edema Current Visit: Yes Status: Acute Assessment & Plan: -Severe edema from thighs to feet initially; improving but persistent -Continue Lasix 40 mg IV BID -Leg elevation; TEDs if tolerated -Bilateral lower-extremity venous duplex demonstrates a non-occlusive right popliteal DVT, with no left-sided DVT. Given DVT development while on Eliquis, this is felt to represent anticoagulation failure, and therapy has been transitioned to warfarin (Coumadin) with INR monitoring per protocol 03/09: recent echo showed hyperdynamic systolic function with EF 65-70%. Patient improving with diuresis, continue for today. Possible switch to oral tomorrow. 03/10: Patient reports still some edema around ankles and she is requiring oxygen with ambulation. Continue IV diuresis for today. Code(s): R60.0 - LOCALIZED EDEMA (4) Hypokalemia Current Visit: Yes Status: Acute Assessment & Plan: -K 3.3 on admission, replaced - now at 3.9 -Continue telemetry and repeat CMP; maintain K goal >4 while on diuresis 03/08: -Potassium at 3.5-continue supplementation Code(s): E87.6 - HYPOKALEMIA 03/09: K 3.0 today. Repletion ordered. Code(s): E87.6 - HYPOKALEMIA (5) A-fib Current Visit: Yes Status: Acute Assessment & Plan: - Pt now with DVT while on eliquis- please see plan- will continue with coumadin/lovenox bridge -Telemetry monitoring Code(s): I48.91 - UNSPECIFIED ATRIAL FIBRILLATION (6) Shortness of breath Current Visit: Yes Status: Acute Assessment & Plan: -On 2 L NC with sats 9798% (reported new baseline) -Home oxygen already arranged -Treat underlying pneumonia/effusions and reassess weaning potential Code(s): R06.02 - SHORTNESS OF BREATH (7) Leukocytosis Current Visit: No Status: Acute Assessment & Plan: -WBC at 16.2 -Prior hematology at outside hospital felt leukemoid reaction -Continue to trend CBC -see above txt for pneumonia -UA negative 03/08: -WBC at 13.5<16.2- continue Zosyn Code(s): D72.829 - ELEVATED WHITE BLOOD CELL COUNT, UNSPECIFIED (8) Thrombocytosis Current Visit: Yes Status: Acute Assessment & Plan: -Platelets 858 -Likely reactive (inflammation/infection and/or anemia); trend CBC -Continue VTE prophylaxis via coumadin/lovenox bridge 03/08: -iron studies with Ferritin elevated at 530 with low TIBC 155, total iron 48, and transferrin saturation 31%, not consistent with iron deficiency and most consistent with inflammatory/acute phase response. -Plts downtrending at 742 -Has OP follow up with Dr. Garcia (hematology) 03/09: continues to downtrend (9) Anemia Current Visit: Yes Status: Acute Qualifiers: Anemia type: unspecified type Qualified Code(s): D64.9 - Anemia, unspecified Assessment & Plan: -Hgb 10.8 -Iron panel ordered; trend CBC 03/08: -Iron panel reviewed, hgb at 9.9 -Ferritin elevated at 530 with low TIBC 155, total iron 48, and transferrin saturation 31%, not consistent with iron deficiency and most consistent with inflammatory/acute phase response. Code(s): D64.9 - ANEMIA, UNSPECIFIED (10) CHF (congestive heart failure) Current Visit: Yes Status: Acute Assessment & Plan: -CT chest: new borderline cardiomegaly with right effusion and diminished left effusion/atelectasis; concern for cardiac decompensation/CHF vs fluid overload -BNP 1750 -Lasix 40 mg IV BID -Strict I&O, daily weights, 2 L fluid restriction -Telemetry and EKG -Maintain K >4 and Mg >2; potassium replaced as needed -Echo from [facility] reviewed and uploaded in system. Shows hyperdynamic LV systolic function with EF 65-70% Code(s): I50.9 - HEART FAILURE, UNSPECIFIED (11) DVT (deep venous thrombosis) Current Visit: Yes Status: Acute Assessment & Plan: -Venous Doppler demonstrates a non-occlusive right popliteal DVT, with no left- sided DVT. Given DVT development while on Eliquis, this is felt to represent anticoagulation failure, and therapy has been transitioned to warfarin (Coumadin) with INR monitoring per protocol. 03/08: -INR at 1.6- pharmacy managing lovenox /coumadin bridging VTE: coumadin/lovenox bridge PUD prevention: Pepcid Next of KIN: daughter D/C plan: 1-2 days Code status: Full Plan of care time: > 40minutes Code(s): I82.409 - ACUTE EMBOLISM AND THOMBOS UNSP DEEP VN UNSP LOWER EXTREMITY Telemedicine Encounter - Telemedicine Encounter Telemedicine Encounter: "The entirety of this encounter was performed via Telemedicine" This visit was performed using real-time audio and video connection between my location and thepatients locationwith the assistance of a surrogateat the patients location. Written or verbal consent was obtained from the patient/guardian to perform this visit [facility] technology. Any patient questions regarding the telemedicine interaction were answered.
[2025-03-10] MEDS: Coumadin 2 MG PO SCH (17:08)
[2025-03-11 00:16] VITALS: RESP 16
[2025-03-11 05:01] LABS: BASOPHIL % 0.5 % (0.1-1.2); Basophil (Absolute #) 0.05 x10^3/uL (0.01-0.08); Eosinophil (Absolute #) 0.28 x10^3/uL (0.04-0.36); Hematocrit 36.4 % (34.1-44.9); Hemoglobin 10.9 g/dL (11.2-15.7); IMMATURE GRAN # 0.07 x10^3u/L (0.001-0.031); IMMATURE GRAN % 0.6 % (0.001-0.429); Lymphocyte (Absolute #) 1.10 x10^3/uL (1.18-3.74); Mean Corpuscular Hemoglobin 29.7 pg (25.6-32.2); Mean Corpuscular Hgb Concent. 29.9 g/dL (32.2-35.5); Monocyte (Absolute #) 0.52 x10^3/uL (0.24-0.86); NUCLEATED RBC # 0.00 x10^3u/L (0.00-0.012); NUCLEATED RBC % 0.0 % (0.00-0.2); Platelet Count 554 x10^3/uL (182-369); Red Blood Count 3.67 x10^6/uL (3.93-5.22); White Blood Count 10.9 x10^3/uL (3.98-10.04)
[2025-03-11 05:20] LABS: INR 2.98 (0.8-3.0); PROTIME 32.0 SECONDS (9.4-12.5)
[2025-03-11 05:23] LABS: Calcium 8.8 mg/dL (8.4-10.2); Carbon Dioxide 31.0 mmol/L (22-30); Creatinine 1 0.69 mg/dL (0.52-1.04); EST GLOMERULAR FILTRATION RATE 88.8 ML/MIN; Glucose 103.0 mg/dL (74-106); Potassium 3.6 mmol/L (3.5-5.1); SGOT/AST 42.0 U/L (14-36); SGPT/ALT 34.0 U/L (0-35); Total Protein 6.7 g/dL (6.3-8.2)
--- NOTE | 2025-03-11 05:25 | PCM.NOTE ---
Date and Time: 03/11/25 0524 Subjective Assessment: Ms. Vogt is a 79-year-old female presented from PCP office on 03/04/25 for worsening bilateral lower-extremity edema. Pt was seen at [facility] ED on 02/21/25 with a left pleural effusion and severe hyponatremia (Na 122) and was transferred to [facility], where she underwent thoracentesis with pleural fluid cultures growing Streptococcus species. During that admission she was also diagnosed with COVID-19 and treated with remdesivir; hematology evaluated leukocytosis and felt it represented a leukemoid reaction. She was discharged 03/03/25 on a 7-day course of clindamycin. Since discharge, family reported progressive leg edema; she was recently started on Eliquis for atrial fibrillation. On arrival this admission, she required 3 L oxygen and is now on [address] chest showed pleural effusions without loculation/cavitary lesion and new bilateral upper-lobe interstitial/alveolar opacities concerning for pneumonia/pneumonitis; PE evaluation limited by motion artifact with no obvious central PE. Right lateral decubitus CXR demonstrated layering bilateral pleural effusions with stable left [id number] lung infiltrate/atelectasis and borderline cardiomegaly. She was started on IV Zosyn, steroids (Solu-Medrol), and Xopenex, and given IV Lasix (now 40 mg IV BID) for suspected fluid overload/CHF contributing to effusions and edema (BNP 1750). WBC has improved (17.1 - 13.5). Potassium was low (3.3) and replaced, now resolved. CT abdomen/pelvis with and without contrast showed no concerning findings. She remains on 2 L NC with sats 9798%, which she reports is her new baseline since her recent hospitalization, and home oxygen is already arranged. Edema has improved but persists (+3 pitting). Bilateral lower-extremity venous duplex is scheduled; lung ultrasound is ordered to quantify pleural fluid and guide need for thoracentesis (would require holding Eliquis 24 hours). Blood cultures x2 and sputum are prelim negative. Prior echocardiogram records from [place] are being obtained for review (not available until Friday due to cloud upload issue). She reports intermittent left-sided chest discomfort at prior chest tube site but otherwise feels better. 03/11/25: Objective Data Vital Signs: Vital Signs - 24 hr Temp Pulse Resp BP Pulse Ox 03/11/25 04:00 97.9 F 80 16 129/56 94 L 03/11/25 00:00 97.1 F 67 16 136/64 98 03/10/25 20:00 98.9 F 82 18 135/62 99 03/10/25 19:14 99 03/10/25 16:00 97.3 F 78 18 141/65 99 03/10/25 11:54 97.3 F 75 16 124/61 100 03/10/25 07:30 97.5 F 72 16 107/55 94 L 03/10/25 06:57 74 16 94 L Pain Assessment - Last Documented Pain Intensity 1 Pain Scale Used 0-10 Pain Scale Intake and Output: Intake & Output 03/08/25 03/09/25 03/10/25 03/11/25 11:59 11:59 11:59 11:59 Intake Total 940 1290 540 720 Output Total 2750 950 2500 Balance -1810 340 -1960 720 Weight 56.7 kg 57 kg 56.7 kg Lab Results: Lab Results-Last 24 Hours 03/10/25 03/10/25 03/10/25 Range/Units 05:28 05:28 05:28 WBC 13.8 H (3.98-10.04) x10^3/uL RBC 3.82 L (3.93-5.22) x10^6/uL Hgb 11.6 (11.2-15.7) g/dL Hct 37.4 (34.1-44.9) % MCV 97.9 H (79.4-94.8) fL MCH 30.4 (25.6-32.2) pg MCHC 31.0 L (32.2-35.5) g/dL RDW 14.0 (11.7-14.4) % Plt Count 639 H (182-369) x10^3/uL MPV 8.9 L (9.4-12.3) fL Gran % 86.4 H (34.0-71.1) % Immature Gran % (Auto) 0.7 H (0.001-0.429) % Nucleat RBC Rel Count 0.0 (0.00-0.2) % Eos # (Auto) 0.19 (0.04-0.36) x10^3/uL Immature Gran # (Auto) 0.10 H (0.001-0.031) x10^3u/L Absolute Lymphs (auto) 1.04 L (1.18-3.74) x10^3/uL Absolute Monos (auto) 0.51 (0.24-0.86) x10^3/uL Absolute Nucleated RBC 0.00 (0.00-0.012) x10^3u/L Lymphocytes % 7.6 L (19.3-51.7) % Monocytes % 3.7 L (4.7-12.5) % Eosinophils % 1.4 (0.7-5.8) % Basophils % 0.2 (0.1-1.2) % Absolute Granulocytes 11.90 H (1.56-6.13) x10^3/uL Basophils # 0.03 (0.01-0.08) x10^3/uL PT 18.2 H (9.4-12.5) SECONDS INR 1.66 D (0.8-3.0) Sodium 136 (135-145) mmol/L Potassium 3.6 (3.5-5.1) mmol/L Chloride 96 L (98-107) mmol/L Carbon Dioxide 34 H (22-30) mmol/L Anion Gap 10.3 (5-15) MEQ/L BUN 14 (7-17) mg/dL Creatinine 0.75 (0.52-1.04) mg/dL Estimated GFR 81.4 ML/MIN Glucose 100 (74-106) mg/dL Calcium 9.0 (8.4-10.2) mg/dL Magnesium 2.2 (1.6-2.3) mg/dL Total Bilirubin 0.40 (0.2-1.3) mg/dL AST 32 (14-36) U/L ALT 27 (0-35) U/L Alkaline Phosphatase 95 (38-126) U/L Serum Total Protein 6.9 (6.3-8.2) g/dL Albumin 3.7 (3.5-5.0) g/dL 03/11/25 03/11/25 Range/Units 04:48 04:48 WBC 10.9 H (3.98-10.04) x10^3/uL RBC 3.67 L (3.93-5.22) x10^6/uL Hgb 10.9 L (11.2-15.7) g/dL Hct 36.4 (34.1-44.9) % MCV 99.2 H (79.4-94.8) fL MCH 29.7 (25.6-32.2) pg MCHC 29.9 L (32.2-35.5) g/dL RDW 13.9 (11.7-14.4) % Plt Count 554 H (182-369) x10^3/uL MPV 8.8 L (9.4-12.3) fL Gran % 81.4 H (34.0-71.1) % Immature Gran % (Auto) 0.6 H (0.001-0.429) % Nucleat RBC Rel Count 0.0 (0.00-0.2) % Eos # (Auto) 0.28 (0.04-0.36) x10^3/uL Immature Gran # (Auto) 0.07 H (0.001-0.031) x10^3u/L Absolute Lymphs (auto) 1.10 L (1.18-3.74) x10^3/uL Absolute Monos (auto) 0.52 (0.24-0.86) x10^3/uL Absolute Nucleated RBC 0.00 (0.00-0.012) x10^3u/L Lymphocytes % 10.1 L (19.3-51.7) % Monocytes % 4.8 (4.7-12.5) % Eosinophils % 2.6 (0.7-5.8) % Basophils % 0.5 (0.1-1.2) % Absolute Granulocytes 8.86 H (1.56-6.13) x10^3/uL Basophils # 0.05 (0.01-0.08) x10^3/uL PT 32.0 H (9.4-12.5) SECONDS INR 2.98 D (0.8-3.0) Sodium (135-145) mmol/L Potassium (3.5-5.1) mmol/L Chloride (98-107) mmol/L Carbon Dioxide (22-30) mmol/L Anion Gap (5-15) MEQ/L BUN (7-17) mg/dL Creatinine (0.52-1.04) mg/dL Estimated GFR ML/MIN Glucose (74-106) mg/dL Calcium (8.4-10.2) mg/dL Magnesium (1.6-2.3) mg/dL Total Bilirubin (0.2-1.3) mg/dL AST (14-36) U/L ALT (0-35) U/L Alkaline Phosphatase (38-126) U/L Serum Total Protein (6.3-8.2) g/dL Albumin (3.5-5.0) g/dL Medications: Medications Generic Name Dose Route Start Last Admin Trade Name Freq PRN Reason Stop Dose Admin Acetaminophen 650 mg 03/04/25 21:32 03/10/25 17:49 Acetaminophen 325 Mg Tablet PO 04/03/25 21:31 650 mg Q4H PRN PRN Administration PAIN, FEVER, HEADACHE Amiodarone HCl 200 mg 03/05/25 10:00 03/10/25 10:01 Amiodarone Hcl 200 Mg Tab PO 04/04/25 09:59 200 mg DAILY CRISTOFER Administration Cholecalciferol 2,000 unit 03/05/25 10:00 03/10/25 10:01 Cholecalciferol (Vitamin D3) 1000 Unit Tablet PO 04/04/25 09:59 2,000 unit DAILY CRISTOFER Administration Enoxaparin Sodium 60 mg 03/07/25 18:00 03/11/25 05:19 Enoxaparin Sodium 60 Mg/0.6 Ml Syringe SQ 04/06/25 17:59 60 mg Q12H CRISTOFER Administration Famotidine 20 mg 03/05/25 10:00 03/10/25 22:31 Famotidine 20 Mg Tablet PO 04/04/25 09:59 20 mg BID CRISTOFER Administration Furosemide 40 mg 03/05/25 17:00 03/10/25 17:12 Furosemide 40 Mg/4 Ml Vial IV 04/04/25 16:59 40 mg BID DIURETIC CRISTOFER Administration Piperacillin Sod/Tazobactam 100 mls @ 200 mls/hr 03/08/25 08:00 03/11/25 05:18 Sod 3.375 gm/ Sodium Chloride IV 03/11/25 07:59 200 mls/hr Q6HT CRISTOFER Administration Lactobacillus Acidophilus 1 tab 03/09/25 18:00 03/10/25 10:01 Lactobacillus Acidophilus 1 Tab Tablet PO 04/08/25 17:59 1 tab DAILY CRISTOFER Administration Levalbuterol HCl 1.25 mg 03/05/25 11:16 Levalbuterol Hcl 1.25 Mg/0.5 Ml [facility] 04/04/25 11:14 Q6HPRN PRN SHORTNESS OF BREATH/WHEEZING Menthol 5.4 mg 03/05/25 14:33 03/05/25 21:26 Menthol 5.4 Mg Lozenge MM 04/04/25 14:22 5.4 mg Q2HPRN PRN Administration COUGH Ondansetron HCl 4 mg 03/04/25 21:32 03/05/25 10:22 Ondansetron Hcl 4 Mg/2 Ml Vial IV 04/03/25 21:31 4 mg Q6H PRN PRN Administration NAUSEA/VOMITING Viactiv - Patient 2 each 03/06/25 10:00 03/10/25 10:11 Own Med Misc PO 04/05/25 09:59 2 each DAILY CRISTOFER Administration Potassium Chloride 10 meq 03/07/25 15:45 03/10/25 10:01 Potassium Chloride Tab 10 Meq Tab PO 04/06/25 15:44 10 meq DAILY CRISTOFER Administration Warfarin Sodium 4 mg 03/10/25 18:00 03/10/25 17:08 Warfarin Sodium 2 Mg Tablet PO 04/09/25 17:59 4 mg COU CRISTOFER Administration Discontinued Medications Generic Name Dose Route Start Last Admin Trade Name Freq PRN Reason Stop Dose Admin Albuterol/Ipratropium 3 ml 03/04/25 21:59 Ipratropium/Albuterol Sulfate 3 Ml Ampul.[facility] 04/03/25 21:58 Q4HPRN PRN SHORTNESS OF BREATH/WHEEZING Apixaban 5 mg 03/04/25 22:00 03/05/25 00:08 Apixaban 2.5 Mg Tablet PO 04/03/25 21:59 5 mg BID CRISTOFER Administration Apixaban 5 mg 03/05/25 10:00 03/05/25 21:09 Apixaban 2.5 Mg Tablet PO 04/04/25 09:59 5 mg BID CRISTOFER Administration Apixaban 5 mg 03/06/25 10:59 03/06/25 21:39 Apixaban 2.5 Mg Tablet PO 03/06/25 22:01 5 mg BID CRISTOFER Administration Apixaban 5 mg 03/07/25 22:00 Apixaban 2.5 Mg Tablet PO 04/06/25 21:59 BID [facility] Calcium Carbonate 2 tab 03/05/25 10:00 03/05/25 09:45 Calcium Carbonate 500 Mg/Vitamin D 1 Tab Tablet PO 04/04/25 09:59 Not Given DAILY [facility] Methylprednisolone Sodium 0 mg 03/05/25 10:00 03/06/25 21:39 Succinate 40 mg/ Sterile Water IV 04/04/25 09:59 40 mg 1 ml Q12HT CRISTOFER Administration Enoxaparin Sodium 60 mg 03/07/25 16:00 03/07/25 18:40 Enoxaparin Sodium 60 Mg/0.6 Ml Syringe SQ 04/06/25 15:59 Not Given BID [facility] Furosemide 40 mg 03/04/25 18:14 03/04/25 18:40 Furosemide 40 Mg/4 Ml Vial IV 03/04/25 18:15 40 mg STAT ONE Administration Furosemide Confirm 03/04/25 18:36 Furosemide 40 Mg/4 Ml Vial Administered 03/04/25 18:37 Dose 40 mg .ROUTE .STK-MED ONE Furosemide 40 mg 03/04/25 21:32 03/04/25 22:46 Furosemide 40 Mg/4 Ml Vial IV 04/03/25 21:31 Not Given Q12H [facility] Furosemide 40 mg 03/05/25 06:00 03/05/25 05:30 Furosemide 40 Mg/4 Ml Vial IV 04/04/25 05:59 40 mg Q12H CRISTOFER Administration Piperacillin Sod/Tazobactam 100 mls @ 200 mls/hr 03/04/25 18:14 03/04/25 19:09 Sod 3.375 gm/ Sodium Chloride IV 03/04/25 18:43 Infused STAT STA Infusion Sodium Chloride 500 mls @ 100 mls/hr 03/04/25 18:45 03/04/25 21:33 Sodium Chloride 0.9% 500 Ml IV 04/03/25 18:44 0 mls/hr .Q5H CRISTOFER Infusion Sodium Chloride Confirm 03/04/25 18:36 Sodium Chloride 0.9% Administered 03/04/25 18:37 Dose 100 mls @ ud .ROUTE .STK-MED ONE Sodium Chloride Confirm 03/04/25 18:36 Sodium Chloride 0.9% 500 Ml Administered 03/04/25 18:37 Dose 500 mls @ ud IV .STK-MED ONE Piperacillin Sod/Tazobactam 100 mls @ 200 mls/hr 03/05/25 00:00 03/08/25 00:13 Sod 3.375 gm/ Sodium Chloride IV 03/08/25 00:00 200 mls/hr Q6HT CRISTOFER Administration Sodium Chloride 1,000 mls @ 50 mls/hr 03/04/25 21:32 03/04/25 22:47 Sodium Chloride 0.9% 1000 Ml IV 04/03/25 21:31 Not Given .Q20H CRISTOFER Sodium Chloride Confirm 03/04/25 23:55 Sodium Chloride 0.9% Administered 03/04/25 23:56 Dose 100 mls @ ud .ROUTE .STK-MED ONE Sodium Chloride Confirm 03/05/25 05:13 Sodium Chloride 0.9% Administered 03/05/25 05:14 Dose 100 mls @ ud .ROUTE .STK-MED ONE Levalbuterol HCl 1.25 mg 03/05/25 13:00 Levalbuterol Hcl 1.25 Mg/0.5 Ml Neb IH 04/04/25 12:59 Q6HRT CRISTOFER Menthol 5.4 mg 03/05/25 14:23 Menthol 5.4 Mg Lozenge MM 04/04/25 14:22 PRN PRN COUGH Methylprednisolone Sodium Succinate Confirm 03/07/25 09:41 Methylprednisolone Sod Suc 40m 40 Mg/Ml Vial Administered 03/07/25 09:42 Dose 40 mg .ROUTE .STK-MED ONE Miscellaneous Information 1 [facility] [place] 03/07/25 10:00 03/07/25 18:39 Medication On Hold: See Note - Bettina 04/06/25 09:59 Not Given DAILY CRISTOFER Non-Formulary Medication 1 each 03/05/25 14:03 03/05/25 14:08 Pharmacy Dosing Request 03/05/25 14:04 1 each STAT ONE Administration Non-Formulary Medication 1 each 03/06/25 14:09 03/07/25 16:48 Pharmacy Dosing Request 03/06/25 14:10 Not Given STAT ONE Non-Formulary Medication 1 each 03/07/25 15:26 03/07/25 16:49 Pharmacy Dosing Request 03/07/25 15:27 Not Given STAT ONE Piperacillin Sod/Tazobactam Sod Confirm 03/04/25 18:36 Piperacillin/Tazobactam Sodium 3.375 Gm Vial Administered 03/04/25 18:37 Dose 3.375 gm IV .STK-MED ONE Piperacillin Sod/Tazobactam Sod Confirm 03/04/25 23:54 Piperacillin/Tazobactam Sodium 3.375 Gm Vial Administered 03/04/25 23:55 Dose 3.375 gm IV .STK-MED ONE Piperacillin Sod/Tazobactam Sod Confirm 03/05/25 05:13 Piperacillin/Tazobactam Sodium 3.375 Gm Vial Administered 03/05/25 05:14 Dose 3.375 gm IV .STK-MED ONE Potassium Bicarbonate 25 meq 03/05/25 07:45 03/05/25 11:58 Potassium Bicarbonate 25 Meq Tab PO 03/05/25 11:46 25 meq Q2H CRISTOFER Administration Potassium Bicarbonate 25 meq 03/06/25 15:03 03/06/25 15:27 Potassium Bicarbonate 25 Meq Tab PO 03/06/25 15:04 25 meq STAT ONE Administration Potassium Chloride 20 meq 03/04/25 18:10 03/04/25 18:41 Potassium Chloride Tab 10 Meq Tab PO 03/04/25 18:11 20 meq STAT ONE Administration Potassium Chloride Confirm 03/04/25 18:36 Potassium Chloride Tab 10 Meq Tab Administered 03/04/25 18:37 Dose 20 meq .ROUTE .STK-MED ONE Potassium Chloride 40 meq 03/06/25 13:53 03/06/25 15:24 Potassium Chloride Tab 10 Meq Tab PO 03/06/25 13:54 Not Given STAT ONE Potassium Chloride 40 meq 03/09/25 10:00 03/09/25 09:48 Potassium Chloride Tab 10 Meq Tab PO 03/09/25 10:01 40 meq DAILY ONE Administration Potassium Chloride 40 meq 03/09/25 05:47 03/09/25 05:52 Potassium Chloride Tab 10 Meq Tab PO 03/09/25 05:48 40 meq STAT ONE Administration Potassium Chloride Confirm 03/09/25 05:50 Potassium Chloride Tab 10 Meq Tab Administered 03/09/25 05:51 Dose 40 meq .ROUTE .STK-MED ONE Warfarin Sodium 4 mg 03/07/25 18:00 03/08/25 17:47 Warfarin Sodium 2 Mg Tablet PO 04/06/25 17:59 4 mg COU CRISTOFER Administration Warfarin Sodium 8 mg 03/09/25 18:00 03/09/25 17:21 Warfarin Sodium 2 Mg Tablet PO 03/09/25 18:01 8 mg COU CRISTOFER Administration Multi-Disciplinary Progress Notes: Multi-Disciplinary Progress Notes 03/10/25 12:20 Pharmacy Note by Srinivasan Ornelas Warfarin Dosing INR = 1.66... Give 4 mg daily Shanta Ornelas Initialized on 03/10/25 12:20 - END OF NOTE Assessment/Plan (1) Pneumonia due to COVID-19 virus Current Visit: Yes Status: Acute Assessment & Plan: Recent COVID-19 infection (diagnosed ~3 weeks ago) -Completed remdesivir during prior hospitalization -No longer requires isolation -Supportive care; pneumonia management as above -CT chest: new patchy bilateral upper-lobe interstitial/alveolar opacities concerning for pneumonia/pneumonitis; no cavitary lesion; PE eval limited by respiratory artifact with no obvious central PE -CXR (right lateral decubitus): layering bilateral pleural effusions; stable left [id number] lung infiltrate/atelectasis; borderline cardiomegaly -Continue IV Zosyn -Trend CBC/CMP -Blood cultures x2 -sputum prelim with gram positive cocci and gram + rods -check MRSA nare -Repeat CXR showing continued minimal clearing left lung infiltrate/atelectasis/effusion with grossly stable small right effusion. Previous right upper lung ground-glass opacity has cleared. Heart not enlarged. No new cardiopulmonary abnormalities -Chest US with small 5.4 x 2.1 cm pocket right effusion and 5.4 x 4.3 cm pocket left effusion - no thoracentesis indicated 03/08: -Continue Zosyn; reassess daily for IV-to-PO eligibility once clearly stable and improving. -Continue bronchodilators/pulmonary hygiene, wean oxygen as tolerated with exertional checks. -Monitor fever curve, WBC trend, cultures, respiratory status; repeat imaging only if clinical change. -MRSA negative -sputum cult pending 03/09: -improving, continue zosyn 03/10: -continue zosyn Code(s): U07.1 - COVID-19; J12.82 - PNEUMONIA DUE TO CORONAVIRUS DISEASE 2019 (2) Bilateral pleural effusion Current Visit: Yes Status: Acute Assessment & Plan: -CT chest and CXR: layering bilateral pleural effusions; no loculation or cavitary lesion -Lung ultrasound ordered today to quantify effusion volume -Thoracentesis to be considered if clinically indicated (would need Eliquis held ?24 hours) -Repeat CXR today 03/08: -Chest ultrasound demonstrates small bilateral pleural effusions not amenable to thoracentesis, so management remains medical. 03/09: continue diuresis for today 03/10: continue IV diuresis for today. Can switch to oral tomorrow. Code(s): J90 - PLEURAL EFFUSION, NOT ELSEWHERE CLASSIFIED (3) Bilateral lower extremity edema Current Visit: Yes Status: Acute Assessment & Plan: -Severe edema from thighs to feet initially; improving but persistent -Continue Lasix 40 mg IV BID -Leg elevation; TEDs if tolerated -Bilateral lower-extremity venous duplex demonstrates a non-occlusive right popliteal DVT, with no left-sided DVT. Given DVT development while on Eliquis, this is felt to represent anticoagulation failure, and therapy has been transitioned to warfarin (Coumadin) with INR monitoring per protocol 03/09: recent echo showed hyperdynamic systolic function with EF 65-70%. Patient improving with diuresis, continue for today. Possible switch to oral tomorrow. 03/10: Patient reports still some edema around ankles and she is requiring oxygen with ambulation. Continue IV diuresis for today. Code(s): R60.0 - LOCALIZED EDEMA (4) Hypokalemia Current Visit: Yes Status: Acute Assessment & Plan: -K 3.3 on admission, replaced - now at 3.9 -Continue telemetry and repeat CMP; maintain K goal >4 while on diuresis 03/08: -Potassium at 3.5-continue supplementation Code(s): E87.6 - HYPOKALEMIA 03/09: K 3.0 today. Repletion ordered. Code(s): E87.6 - HYPOKALEMIA (5) A-fib Current Visit: Yes Status: Acute Assessment & Plan: - Pt now with DVT while on eliquis- please see plan- will continue with coumadin/lovenox bridge -Telemetry monitoring Code(s): I48.91 - UNSPECIFIED ATRIAL FIBRILLATION (6) Shortness of breath Current Visit: Yes Status: Acute Assessment & Plan: -On 2 L NC with sats 9798% (reported new baseline) -Home oxygen already arranged -Treat underlying pneumonia/effusions and reassess weaning potential Code(s): R06.02 - SHORTNESS OF BREATH (7) Leukocytosis Current Visit: No Status: Acute Assessment & Plan: -WBC at 16.2 -Prior hematology at outside hospital felt leukemoid reaction -Continue to trend CBC -see above txt for pneumonia -UA negative 03/08: -WBC at 13.5<16.2- continue Zosyn Code(s): D72.829 - ELEVATED WHITE BLOOD CELL COUNT, UNSPECIFIED (8) Thrombocytosis Current Visit: Yes Status: Acute Assessment & Plan: -Platelets 858 -Likely reactive (inflammation/infection and/or anemia); trend CBC -Continue VTE prophylaxis via coumadin/lovenox bridge 03/08: -iron studies with Ferritin elevated at 530 with low TIBC 155, total iron 48, and transferrin saturation 31%, not consistent with iron deficiency and most consistent with inflammatory/acute phase response. -Plts downtrending at 742 -Has OP follow up with Dr. Garcia (hematology) 03/09: continues to downtrend (9) Anemia Current Visit: Yes Status: Acute Qualifiers: Anemia type: unspecified type Qualified Code(s): D64.9 - Anemia, unspecified Assessment & Plan: -Hgb 10.8 -Iron panel ordered; trend CBC 03/08: -Iron panel reviewed, hgb at 9.9 -Ferritin elevated at 530 with low TIBC 155, total iron 48, and transferrin saturation 31%, not consistent with iron deficiency and most consistent with inflammatory/acute phase response. Code(s): D64.9 - ANEMIA, UNSPECIFIED (10) CHF (congestive heart failure) Current Visit: Yes Status: Acute Assessment & Plan: -CT chest: new borderline cardiomegaly with right effusion and diminished left effusion/atelectasis; concern for cardiac decompensation/CHF vs fluid overload -BNP 1750 -Lasix 40 mg IV BID -Strict I&O, daily weights, 2 L fluid restriction -Telemetry and EKG -Maintain K >4 and Mg >2; potassium replaced as needed -Echo from [facility] reviewed and uploaded in system. Shows hyperdynamic LV systolic function with EF 65-70% Code(s): I50.9 - HEART FAILURE, UNSPECIFIED (11) DVT (deep venous thrombosis) Current Visit: Yes Status: Acute Assessment & Plan: -Venous Doppler demonstrates a non-occlusive right popliteal DVT, with no left- sided DVT. Given DVT development while on Eliquis, this is felt to represent anticoagulation failure, and therapy has been transitioned to warfarin (Coumadin) with INR monitoring per protocol. 03/08: -INR at 1.6- pharmacy managing lovenox /coumadin bridging VTE: coumadin/lovenox bridge PUD prevention: Pepcid Next of KIN: daughter D/C plan: 1-2 days Code status: Full Plan of care time: > 40minutes Code(s): U07.1 - COVID-19; J12.82 - PNEUMONIA DUE TO CORONAVIRUS DISEASE 2018 (2) Bilateral pleural effusion Current Visit: Yes Status: Acute Code(s): J90 - PLEURAL EFFUSION, NOT ELSEWHERE CLASSIFIED (3) Bilateral lower extremity edema Current Visit: Yes Status: Acute Code(s): R60.0 - LOCALIZED EDEMA (4) Hypokalemia Current Visit: Yes Status: Acute Code(s): E87.6 - HYPOKALEMIA (5) A-fib Current Visit: Yes Status: Acute Code(s): I48.91 - UNSPECIFIED ATRIAL FIBRILLATION (6) Shortness of breath Current Visit: Yes Status: Acute Code(s): R06.02 - SHORTNESS OF BREATH (7) Leukocytosis Current Visit: No Status: Acute Code(s): D72.829 - ELEVATED WHITE BLOOD CELL COUNT, UNSPECIFIED (8) Thrombocytosis Current Visit: Yes Status: Acute (9) Anemia Current Visit: Yes Status: Acute Qualifiers: Anemia type: unspecified type Qualified Code(s): D64.9 - Anemia, unspecified Code(s): D64.9 - ANEMIA, UNSPECIFIED (10) CHF (congestive heart failure) Current Visit: Yes Status: Acute Code(s): I50.9 - HEART FAILURE, UNSPECIFIED (11) DVT (deep venous thrombosis) Current Visit: Yes Status: Acute Code(s): I82.409 - ACUTE EMBOLISM AND THOMBOS UNSP DEEP VN UNSP LOWER EXTREMITY
[2025-03-11 07:35] VITALS: TEMP 97.7; O2SAT 98
[2025-03-11 11:55] VITALS: BP 123/58; PULSE 77
--- NOTE | 2025-03-11 12:07 | PCM.DS ---
Discharge Summary Date of Admission: 03/04/25 21:55 Date of Discharge: 03/11/25 Admitting Physician: LIV POWERS MD Primary Care Provider: AJITH BEE DO Allergies Allergies No Known Drug Allergies Allergy (Verified 03/04/25 16:41) Hospital Summary - Hospital Course Hospital Course: Ms. Vogt is a 79-year-old female was admitted on 03/04/25 from her PCPs office for worsening bilateral lower-extremity edema and hypoxia following a complex recent hospitalization. Earlier in the month, she had presented to an outside emergency department with severe hyponatremia (Na 122) and a left pleural effusion and was transferred to [facility], where she underwent thoracentesis with pleural fluid cultures growing Streptococcus species. That hospitalization was further complicated by acute COVID-19 infection treated with remdesivir and significant leukocytosis felt by hematology to represent a leukemoid reaction. She was discharged on 03/03/25 on oral clindamycin. Following discharge, family noted progressive bilateral leg edema and increasing oxygen requirements. On presentation to our facility, she required 3 L nasal cannula oxygen and was found on CT chest to have bilateral pleural effusions without loculation and new bilateral upper-lobe interstitial and alveolar opacities concerning for pneumonia or pneumonitis. Pulmonary embolism evaluation was limited by motion artifact but showed no obvious central PE. Right lateral decubitus chest X-ray demonstrated layering bilateral pleural effusions with stable left [id number] lung infiltrate/atelectasis and borderline cardiomegaly. BNP was markedly elevated at 1750, raising concern for volume overload and acute decompensated heart failure contributing to her effusions and edema. She was treated with IV Zosyn for presumed healthcare-associated pneumonia, systemic steroids (Solu-Medrol), bronchodilator therapy with Xopenex, and aggressive IV diuresis with Lasix 40 mg IV twice daily. Over the course of hospitalization, her oxygen requirements improved to 2 L nasal cannula with exertion and room air at rest, which she reports is her new baseline following recent illness. She completed a full 7-day course of IV Zosyn with improvement in leukocytosis (WBC down from 17.1 to 10.9), stable respiratory status, and radiographic improvement. Repeat imaging showed minimal residual left-sided infiltrate/atelectasis with stable small bilateral effusions and no new cardiopulmonary abnormalities. Lung ultrasound confirmed small bilateral pleural effusions not amenable to thoracentesis. During admission, she was also found to have a non-occlusive right popliteal deep vein thrombosis on bilateral lower-extremity venous duplex while on Eliquis for atrial fibrillation, consistent with anticoagulation failure. Anticoagulation was transitioned to warfarin with Lovenox bridging under pharmacy management. Her INR reached a therapeutic level of 2.98 on 03/11/25, at which point Lovenox was discontinued. Pharmacy recommended continuation of warfarin 4 mg daily with outpatient INR monitoring through the [facility], with follow-up arranged for Friday. Electrolyte abnormalities during admission included hypokalemia, which was corrected with supplementation. Anemia and thrombocytosis were felt to be reactive and inflammatory in nature, supported by iron studies showing elevated ferritin with low TIBC and normal transferrin saturation. An echocardiogram from her prior hospitalization, now available, demonstrated hyperdynamic left ventricular systolic function with an ejection fraction of 6570%. By discharge, her edema had improved though not fully resolved, oxygen requirements were stable, and she was clinically improved and appropriate for discharge with close outpatient follow-up. Discharge Note Follow Up: PCP/Pulm/Hematology Coumadin 4mg daily - follow up with Coumadin clinic as directed I spent 35 minutes [id number] with the patient on the day of discharge performing discharge exam, discussing hospital stay and discharge instructions with patient and caregivers, preparation of discharge records, prescriptions & referral forms and addressing any questions/concerns the patient had as documented above. - Vitals & Intake/Output Vital Signs: Vital Signs Temperature 97.7 F 03/11/25 11:53 Pulse Rate 77 03/11/25 11:53 Respiratory Rate 16 03/11/25 11:53 Blood Pressure 123/58 03/11/25 11:53 O2 Sat by Pulse Oximetry 98 03/11/25 11:53 Intake & Output: Intake & Output 03/09/25 03/10/25 03/11/25 03/12/25 11:59 11:59 11:59 11:59 Intake Total 1290 540 960 Output Total 950 2500 Balance 340 -1960 960 Weight 57 kg 56.7 kg 57.7 kg - Lab Result Diagrams: 03/11/25 04:48 03/11/25 04:48 Lab Results-Last 24 Hrs: Lab Results-Last 24 Hours 03/11/25 03/11/25 03/11/25 Range/Units 04:48 04:48 04:48 WBC 10.9 H (3.98-10.04) x10^3/uL RBC 3.67 L (3.93-5.22) x10^6/uL Hgb 10.9 L (11.2-15.7) g/dL Hct 36.4 (34.1-44.9) % MCV 99.2 H (79.4-94.8) fL MCH 29.7 (25.6-32.2) pg MCHC 29.9 L (32.2-35.5) g/dL RDW 13.9 (11.7-14.4) % Plt Count 554 H (182-369) x10^3/uL MPV 8.8 L (9.4-12.3) fL Gran % 81.4 H (34.0-71.1) % Immature Gran % (Auto) 0.6 H (0.001-0.429) % Nucleat RBC Rel Count 0.0 (0.00-0.2) % Eos # (Auto) 0.28 (0.04-0.36) x10^3/uL Immature Gran # (Auto) 0.07 H (0.001-0.031) x10^3u/L Absolute Lymphs (auto) 1.10 L (1.18-3.74) x10^3/uL Absolute Monos (auto) 0.52 (0.24-0.86) x10^3/uL Absolute Nucleated RBC 0.00 (0.00-0.012) x10^3u/L Lymphocytes % 10.1 L (19.3-51.7) % Monocytes % 4.8 (4.7-12.5) % Eosinophils % 2.6 (0.7-5.8) % Basophils % 0.5 (0.1-1.2) % Absolute Granulocytes 8.86 H (1.56-6.13) x10^3/uL Basophils # 0.05 (0.01-0.08) x10^3/uL PT 32.0 H (9.4-12.5) SECONDS INR 2.98 D (0.8-3.0) Sodium 135 (135-145) mmol/L Potassium 3.6 (3.5-5.1) mmol/L Chloride 97 L (98-107) mmol/L Carbon Dioxide 31 H (22-30) mmol/L Anion Gap 11.2 (5-15) MEQ/L BUN 11 (7-17) mg/dL Creatinine 0.69 (0.52-1.04) mg/dL Estimated GFR 88.8 ML/MIN Glucose 103 (74-106) mg/dL Calcium 8.8 (8.4-10.2) mg/dL Magnesium 2.1 (1.6-2.3) mg/dL Total Bilirubin 0.30 (0.2-1.3) mg/dL AST 42 H (14-36) U/L ALT 34 (0-35) U/L Alkaline Phosphatase 101 (38-126) U/L Serum Total Protein 6.7 (6.3-8.2) g/dL Albumin 3.5 (3.5-5.0) g/dL Micro Results-Entire Visit: Microbiology 03/04/25 17:26 Blood Culture - Final Blood 03/04/25 17:17 Blood Culture - Final Blood 03/05/25 12:00 Gram Stain - Final Sputum - Expectorant Sputum Culture - Final ORGANISMS ISOLATED ARE CONSISTENT WITH NORMAL RESP ALIA MODERATE GROWTH, NO PREDOMINANT ORGANISM - Procedures and Test Procedures and Tests throughout Hospitalization: Therapy Orders & Screens 03/04/25 21:32 EKG REPEAT IN AM Comment: Oxygen Nasal Cannula 3 lpm Comment: Respiratory Therapy Consult ONCE Comment: Reason For Exam: 03/04/25 21:55 PT Eval & Treat (MD Order) ONCE Reason for Eval:: weakness Diagnosis: pleural effusion OT Eval and Treat (MD Order) ONCE Comment: Physician Instructions: Reason For Exam: Evaluate: Yes Treat: Yes Reason for Evaluation: weakness Diagnosis: pleaural effusion 03/04/25 22:46 Respiratory Therapy Assessment DAILY Comment: Diagnosis: pleaural effusion 03/05/25 11:05 Incentive Spirometry Q1H Comment: Diagnosis: pleaural effusion Discharge Exam General Appearance: no apparent distress Neurologic Exam: alert, oriented x 3, cooperative Eye Exam: PERRL Ears, Nose, Throat Exam: normal ENT inspection Neck Exam: normal inspection Respiratory Exam: normal breath sounds, lungs clear Cardiovascular Exam: regular rate/rhythm, normal heart sounds Gastrointestinal/Abdomen Exam: soft, normal bowel sounds Pelvic Exam: deferred Rectal Exam: deferred Back Exam: normal inspection Extremity Exam: normal inspection Skin Exam: normal color Final Diagnosis/Problem List - Final Discharge Diagnosis/Problem (1) Pneumonia due to COVID-19 virus Current Visit: Yes Status: Acute Assessment & Plan: Recent COVID-19 infection treated with remdesivir during prior hospitalization CT chest showed bilateral upper-lobe interstitial and alveolar opacities without cavitation; PE ruled out centrally CXR and lung ultrasound demonstrated small bilateral pleural effusions and improving infiltrates Completed 7 days of IV Zosyn during this admission MRSA nares negative; blood and sputum cultures remained negative Discharge Plan: No further antibiotics indicated Continue pulmonary hygiene and bronchodilators as prescribed Monitor for recurrent dyspnea, fever, or cough Follow up with PCP and pulmonology as scheduled Code(s): U07.1 - COVID-19; J12.82 - PNEUMONIA DUE TO CORONAVIRUS DISEASE 2018 (2) Bilateral pleural effusion Current Visit: Yes Status: Acute Assessment & Plan: Imaging demonstrated small, layering bilateral effusions without loculation Lung ultrasound confirmed effusions not amenable to thoracentesis Likely multifactorial from infection and volume overload Discharge Plan: Continue oral diuretics lasix 40g bid Monitor weight and symptoms Repeat imaging only if clinical status worsens Code(s): J90 - PLEURAL EFFUSION, NOT ELSEWHERE CLASSIFIED (3) Bilateral lower extremity edema Current Visit: Yes Status: Acute Assessment & Plan: Severe on admission, improved with diuresis but still present Discharge Plan: Continue oral diuretics Leg elevation and compression as tolerated Monitor daily weights and swelling Code(s): R60.0 - LOCALIZED EDEMA (4) Hypokalemia Current Visit: Yes Status: Acute Assessment & Plan: Lowest potassium 3.0 during admission, corrected with supplementation Discharge Plan: Continue potassium supplementation 20meq daily Repeat BMP with outpatient labs Code(s): E87.6 - HYPOKALEMIA (5) A-fib Current Visit: Yes Status: Acute Assessment & Plan: Now anticoagulated with warfarin due to Eliquis failure Discharge Plan: Continue warfarin with INR monitoring Rate control as previously prescribed Cardiology follow-up Code(s): I48.91 - UNSPECIFIED ATRIAL FIBRILLATION (6) Shortness of breath Current Visit: Yes Status: Acute Assessment & Plan: Now at baseline: room air at rest, 2 L nasal cannula with ambulation Home oxygen already arranged Discharge Plan: Continue home oxygen as prescribed Reassess oxygen needs with PCP/pulmonology Code(s): R06.02 - SHORTNESS OF BREATH (7) Leukocytosis Current Visit: No Status: Acute Assessment & Plan: Likely reactive/inflammatory WBC and platelet counts down-trending Iron studies consistent with inflammatory response rather than iron deficiency Discharge Plan: Continue outpatient hematology follow-up Repeat CBC as outpatient Code(s): D72.829 - ELEVATED WHITE BLOOD CELL COUNT, UNSPECIFIED (8) Thrombocytosis Current Visit: Yes Status: Acute Assessment & Plan: Platelets markedly elevated during admission, peaking >800K in the setting of acute infection and inflammation Down-trended steadily with clinical improvement; platelet count improved to 554 prior to discharge Iron studies (elevated ferritin, low TIBC, normal transferrin saturation) consistent with inflammatory/acute phase response rather than iron deficiency No evidence of primary myeloproliferative disorder during this admission Discharge Plan: No acute intervention required Continue outpatient hematology follow-up with Dr. Garcia Repeat CBC as directed by hematology Monitor for thrombotic or bleeding symptoms, particularly in the setting of anticoagulation (9) Anemia Current Visit: Yes Status: Acute Assessment & Plan: Hemoglobin sparkle 9.9 with elevated ferritin and low TIBC Discharge Plan: Monitor CBC outpatient No iron supplementation indicated at this time Code(s): D64.9 - ANEMIA, UNSPECIFIED (10) CHF (congestive heart failure) Current Visit: Yes Status: Acute Assessment & Plan: BNP 1750 with bilateral effusions, edema, and borderline cardiomegaly Responded to IV diuresis Echocardiogram showed preserved/hyperdynamic systolic function (EF 6570%) Discharge Plan: Transition to oral diuretics with lasix 40mg bid Daily weights at home 2-liter fluid restriction and low-sodium diet Follow up with cardiology and PCP Code(s): I50.9 - HEART FAILURE, UNSPECIFIED (11) DVT (deep venous thrombosis) Current Visit: Yes Status: Acute Assessment & Plan: Non-occlusive DVT identified on duplex ultrasound Occurred while on Eliquis, consistent with anticoagulation failure Transitioned to warfarin with Lovenox bridge INR therapeutic at 2.98 on discharge Discharge Plan: Discontinue Lovenox Continue warfarin 4 mg daily per pharmacy recommendation [facility] to manage INR; follow-up scheduled Friday Monitor for bleeding or thrombotic symptoms Code(s): I82.409 - ACUTE EMBOLISM AND THOMBOS UNSP DEEP VN UNSP LOWER EXTREMITY - Discharge Discharge Date: 03/11/25 Disposition: Home, Self-Care Condition: Stable Prescriptions: New Warfarin Sodium 4 mg PO DAILY 30 Days #60 tablet Lactobacillus Acidophilus [Acidophilus TABLET] 1 tab PO DAILY tablet Warfarin Sodium 2 mg [Coumadin 2 MG] 4 mg PO COU tablet Furosemide [Lasix] 40 mg PO DAILY 30 Days #30 tablet Potassium Chloride 20 meq PO DAILY 30 Days #30 tablet Continue Calcium Carbonate/Vitamin D3 [Calcium 250-D Tablet] 1,000 mg PO DAILY Cholecalciferol (Vitamin D3) [Vitamin D3] 50 mcg PO DAILY Amiodarone HCl 200 mg [Cordarone 200 MG] 200 mg PO DAILY Famotidine 20 mg [Pepcid 20 MG] 20 mg PO BID Discontinued clindamycin HCL [Clindamycin HCl] 300 mg PO TID Apixaban [Eliquis] 5 mg PO BID Instructions: Long COVID, Managing increased bleeding risk Additional Instructions: FOLLOW COUMADIN CLINIC RECOMMENDATIONS AND APTS FOR FOLLOW UPS Follow up with: ONELIA HERNANDEZ [ACTIVE STAFF, PULMONARY MEDICINE] - 03/24/25 11:00 am ALICIA HOUSER NP [NON-STAFF PHY W/O PRIVILEGES, UNKNOWN] - 03/14/25 11:00 am
== END 2025-03-11 13:59 | disposition home or self-care (01) | DRG 177 ==
LOC: ED 16:26 → MED SURG 21:31 → OBSVTOIN 21:55
PROVIDERS: ADMIT Internal Medicine; ATTEND Internal Medicine
DX: U07.1 COVID-19 (principal); J12.82 Pneumonia due to coronavirus disease 2019; J90 Pleural effusion, not elsewhere classified; I82.409 Acute embolism and thrombosis of unspecified deep veins of unspecified lower extremity; R60.0 Localized edema; E87.6 Hypokalemia; I48.91 Unspecified atrial fibrillation; R06.02 Shortness of breath; D72.829 Elevated white blood cell count, unspecified; D75.839 Thrombocytosis, unspecified; D64.9 Anemia, unspecified; I50.9 Heart failure, unspecified; D72.825 Bandemia; R91.8 Other nonspecific abnormal finding of lung field; Z79.899 Other long term (current) drug therapy
CPT/HCPCS: 36415; 71045; 71260; 74178; 76604; 80053; 81001; 82607; 82728; 82746; 83540; 83550; 83605; 83735; 83880; 84132; 84439; 84443; 84484; 85025; 85027; 85610; 87040; 87070; 87493; 87641; 93005; 93041; 93970; 94760; 96360; 96361; 96374; 97161; 97165; 99285; Q3014